=== PATIENT | male | born 1950 ===

== ENCOUNTER 2025-09-29 18:46 | Inpatient (IN) | payer MEDICARE, MEDICAID, SELFPAY ==
[2025-09-29] VITALS (9 sets, daily range): BP systolic 98–122; BP diastolic 40–62; PULSE 67–86; RESP 17–21; TEMP 37.7–39; O2SAT 92–99; BMI 22.9
--- NOTE | 2025-09-29 | ECG_ITS ---
Test Reason : SEPSIS? Blood Pressure : */* mmHG Vent. Rate : 72 BPM Atrial Rate : 72 BPM P-R Int : 134 ms QRS Dur : 76 ms QT Int : 398 ms P-R-T Axes : 35 -42 -19 degrees QTcB Int : 435 ms Normal sinus rhythm Left axis deviation Abnormal ECG No previous ECGs available Referred By: Generic ED Physician Electronically Signed By: Brent Heath
--- NOTE | ~2025-09-29 | CT_ITS ---
CLINICAL HISTORY: LLQ Tenderness; Fever CT abdomen and pelvis with contrast Comparison: None provided Findings: CT abdomen: Mild areas of dependent atelectasis within the lower lobes bilaterally. Trace amount of pleural fluid bilaterally. There is bilateral L5 spondylolysis with 12 mm of anterolisthesis of L5 on S1. There is severe degenerative disc disease and degenerative facet disease at the lumbosacral junction. Age-indeterminate height loss along the superior endplate of L1 and L2 without well-defined fracture cleft. Likely developing Schmorl's node formation at these levels. Irregularly shaped hypodensity within the posterior superior right lobe of the liver measures 3.8 x 2.1 cm in size. This abuts the right hepatic vein. More posteriorly and inferiorly within the right lobe of the liver is a 1.7 x 1.1 cm focus of ovoid low-attenuation. Main portal vein is patent. Small calcified gallstones with likely thickened bile or sludge within the dependent portion of the gallbladder. Small amount of pericholecystic fluid is identified. Small hypodensities within the spleen measure up to 15 mm in size. Splenic vein is patent. Fatty replacement of the pancreas without peripancreatic edema. Adrenal glands are unremarkable. Mild prominence of the right renal pelvis. There is a 2 cm exophytic cyst off the upper pole of the right kidney. No renal or ureteral calculi identified. Small hiatal hernia. No dilated small bowel. Dense vascular calcification of the abdominal aorta and iliac arteries. CT pelvis: 6 cm stool ball seen within the rectum with moderate stool otherwise seen throughout the colon. Mild rectal wall thickening with perirectal inflammatory stranding. Left sacral decubitus ulcer with sinus tract extending into the posterior cortex of the sacrum. There are areas of bony destructive change involving the posterior aspect of the mid to left aspect of the sacrum with abnormal areas of bony sclerosis and periosteal reaction. No discrete fluid collection seen to suggest abscess. However, there is prominent presacral edema. No findings of appendicitis. No free air. Partial bony ankylosis of the sacroiliac joints bilaterally. Surgical screws are seen within the right proximal femur fixating a right femoral neck fracture. Persistent fracture line is evident with mild impaction. Mixed areas of sclerosis and lucency are seen within the right femoral head suggesting avascular necrosis with findings concerning for impending cortical collapse. IMPRESSION: 1. Sacral decubitus ulcer to the left of midline with sinus tract extending into the posterior aspect of the sacrum of the associated sacral osteomyelitis. 2. Age-indeterminate L1 and L2 superior endplate height loss. 3. Cholelithiasis with likely thickened sludge or bile. Pericholecystic fluid raises the concern for cholecystitis. Clinical correlation advised. Gallbladder ultrasound could further evaluate. 4. Prominent stool ball within the rectum with findings most characteristic of proctitis. 5. 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 Correlation with the timing of the patient's surgery is suggested as there is no solid bony ankylosis of the femoral neck fracture. This document has been electronically signed by: Babatunde Chong MD on 09/30/2025 00:10:21
--- NOTE | ~2025-09-29 | CT_ITS ---
CLINICAL HISTORY: Altered Mental Status CT head without contrast Comparison: None provided Findings: Generalized cerebral and cerebellar atrophy is evident. There is ex vacuo dilatation of the ventricular system related to this degree of atrophy. Mild areas of low attenuation seen within the periventricular and deep white matter. No midline shift or mass effect. No intracranial hemorrhage. No calvarial fractures. IMPRESSION: 1. No acute intracranial findings. Specifically, no hemorrhage or acute territorial infarct. 2. Generalized atrophy with likely chronic microvascular ischemic change. This document has been electronically signed by: Babatunde Chong MD on 09/29/2025 22:17:37
--- NOTE | ~2025-09-29 | US_ITS ---
CLINICAL HISTORY: ? cholecystitis on CT US abdomen limited Comparison: None provided Findings: The visualized liver is normal in size and echotexture. The common duct is 3 mm in diameter. The gallbladder is contracted. There is cholelithiasis. There is no gallbladder wall thickening. No ascites. IMPRESSION: Contracted gallbladder with cholelithiasis. This document has been electronically signed by: Riaz Morales MD on 09/30/2025 09:52:13
--- NOTE | ~2025-09-29 | XR_ITS ---
CLINICAL HISTORY: altered mental status 1 view chest x-ray Comparison: None provided Findings: Patient is slightly rotated on this study. Patient's chin obscures visualization of the medial aspect of the left lung apex. Cardiac silhouette is within normal limits. No focal areas of consolidation. Mild emphysema. No pleural effusion or pneumothorax. IMPRESSION: No acute infiltrate. This document has been electronically signed by: Babatunde Chong MD on 09/29/2025 20:19:37
[2025-09-29 19:26] LABS: MANUAL DIFF FLAG NO
[2025-09-29 19:42] LABS: Magnesium 2.4 mg/dL (1.6-2.6)
[2025-09-29 19:47] LABS: Appearance Urine Clear; Glucose Urine UA >=1000 mg/dL (Negative); PH 5.5 (5.0-9.0); Specific Gravity - Urine >= 1.030 (1.005-1.025); UMIC TRIGGER UACC YES
[2025-09-29] MEDS: SODIUM CHLORIDE 1812 ML IV (20:29)
[2025-09-29 20:34] LABS: UACC Culture Trigger YES
[2025-09-29 20:47] LABS: Hematocrit 41.5 % (42.0-52.0); Hemoglobin 13.0 g/dl (14.0-18.0); Imm Gran Abs Auto 0.07 X10*3/uL (0.00-0.03); Imm Gran Pct Auto 0.8 % (0.0-0.4); Lymphocytes Absolute Auto 2.0 X10*3/uL (1.2-4.9); Mean Corpuscular HGB Conc 31.3 g/dl (31.0-36.0); Mean Corpuscular Hemoglobin 27.3 pg (27.0-33.0); Mean Corpuscular Volume 87.2 fL (80.0-98.0); NRBC Abs Auto 0.000 X10*3/uL (0.0-0.012); NRBC Pct Auto 0.0 /100WBC (0.0-0.2); Platelet Count 169 X10*3/uL (160-400); Red Blood Count 4.76 X10*6/uL (4.60-5.80); White Blood Count 8.5 X10*3/uL (4.8-10.8)
--- NOTE | 2025-09-29 20:59 | ED_ITS ---
HPI - Altered Mental Status General Chief Complaint: Altered Mental Status Stated Complaint: less responsive, alert to painful stimuli only Time Seen by Provider: 09/29/25 20:23 Source: EMS Mode of arrival: EMS Limitations: altered mental status History of Present Illness ED Provider: Rosendo CUEVAS HPI narrative: The patient is a 75-year-old male with a history of dementia, hyperlipidemia, hypertension, depression, diabetes with diabetic neuropathy, personality disorder, essential tremor, left BKA, right AKA, and failure to thrive, presenting to the ED via EMS from his nursing facility for decreased responsiveness. Patient is unable to provide a reliable HPI. On arrival to the ED patient was found to be febrile at 102.2, with SpO2 of 92% on room air. No associated hypotension or tachycardia. The patient arrives minimally responsive to verbal stimuli, able to state his name. Related Data Allergies Allergy/AdvReac Type Severity Reaction Status Date / Time No Known Allergies Allergy Verified 09/29/25 19:03 Review of Systems 2 Review of Systems: Yes all other systems are reviewed and are negative PMFSH Social History Social History Unable to assess alcohol history related to: Unable to respond Smoked in Last 30 Days: No Use of substances other than those prescribed or required for medical reasons: No Advance Directives: No Advance Directives Information Provided: Yes Do you have a plan to hurt others: Vague Physical Exam ED Vital Signs: Vital Signs - 24 hr 09/29/25 19:01 09/29/25 19:04 09/29/25 19:26 Temperature 102.2 F H 102.2 F H Pulse Rate 86 77 72 Respiratory Rate 19 17 Blood Pressure 121/59 L 122/59 L 115/56 L Pulse Oximetry 92 92 93 Oxygen Delivery Method Room Air Room Air Room Air 09/29/25 19:43 09/29/25 19:59 09/29/25 21:30 Temperature 99.9 F Pulse Rate 72 74 71 Respiratory Rate 19 17 17 Blood Pressure 121/58 L 113/62 105/44 L Pulse Oximetry 93 94 92 Oxygen Delivery Method Room Air Room Air Room Air 09/29/25 21:37 09/29/25 21:39 09/29/25 22:41 Temperature Pulse Rate 68 69 67 Respiratory Rate 20 20 21 H Blood Pressure 103/40 L 108/40 L 98/45 L Pulse Oximetry 99 99 96 Oxygen Delivery Method Room Air Room Air Room Air BMI result Body Mass Index 22.9 CONSTITUTIONAL: The patient appears markedly dehydrated, toxic, chronically ill. Vital signs as documented. HEAD: Atraumatic, normocephalic. EYES: EOMs grossly intact, pupils equal, conjunctiva clear, no exudate. ENT: Nares patent, no discharge. Airway patent, no audible stridor, visible mucosa is pink and moist without noted lesions. NECK: Trachea is midline, no obvious masses or gross abnormalities. CHEST: Symmetric movement, normal appearance. LUNGS: LS present and CTAB, no w/r/r. Non-labored work of breathing. CARDIAC: Regular Rhythm, S1/S2 appreciated, no murmurs, rubs or gallops. ABDOMEN: Abdomen soft x4 quadrants, positive tenderness of the left lower quadrant, negative rebound, no palpable masses or organomegaly. : Deferred. EXTREMITIES: Patient is status post left AKA, and right BKA. Otherwise normal tone. No obvious acute injury or deformity noted. NEURO: Alert to verbal stimuli. Patient unable or unwilling to cooperate with the remainder of neuro exam. PSYCH: normal affect, appropriate eye contact, fluid speech, with appropriate response to questioning. No reported suicidality or homicidality. SKIN: Warm, dry, color appropriate, normal turgor. There is a stage III decubitus ulcer of the sacrum with dressing in place, removal of dressing demonstrates maceration of wound edges without any active purulent drainage, there was no evidence of surrounding cellulitis. No other rashes noted. Medications Administered Generic Name Dose Route Start Last Admin Trade Name Freq PRN Reason Stop Dose Admin Sodium Chloride 1,000 mls @ 125 mls/hr 09/29/25 22:00 09/29/25 21:58 Ns IVCONT 125 mls/hr .Q8H JOHNATHAN Administration Discontinued Medications Generic Name Dose Route Start Last Admin Trade Name Freq PRN Reason Stop Dose Admin Acetaminophen 1,000 mg in 100 mls @ 400 mls/hr 09/29/25 19:51 09/29/25 20:31 Ofirmev IV 09/29/25 20:05 Infused ONCE ONE Infusion Sodium Chloride 1,812 mls @ 1,812 mls/hr 09/29/25 20:25 09/29/25 21:36 Ns 30 ml/kg infuse over 1 hr (1812 ml) 09/29/25 21:24 Infused IV Infusion .Q1H STA Ceftriaxone Sodium 1 gm/ 50 mls @ 100 mls/hr 09/29/25 20:25 09/29/25 21:36 Sodium Chloride IV 09/29/25 20:54 Infused ONCE ONE Infusion Vancomycin HCl 1,500 mg/ 500 mls @ 333.333 mls/hr 09/29/25 21:53 09/29/25 23:39 Sodium Chloride IV 09/29/25 23:22 333.33 mls/hr ONCE ONE Administration Iohexol 100 ml 09/29/25 23:00 09/29/25 23:00 Iohexol 350 Mg/Ml 100 Ml Infus..Btl IV 09/29/25 23:01 85 ml ONCE ONE Administration Medical Decision Making Medical Decision Making MDM Narrative: 9:37 PM 09/29/2025 (Damian CUEVAS): The patient is a 75-year-old male with a history of dementia, hyperlipidemia, hypertension, depression, diabetes with diabetic neuropathy, personality disorder, essential tremor, left BKA, right AKA, and failure to thrive, presenting to the ED via EMS from his nursing facility for decreased responsiveness. Patient is unable to provide a reliable HPI. On arrival to the ED patient was found to be febrile at 102.2, with SpO2 of 92% on room air. No associated hypotension or tachycardia. The patient arrives minimally responsive to verbal stimuli, able to state his name. On exam patient reports tenderness of the left lower quadrant of the abdomen, no other reported pain. The patient's exam demonstrates severe dryness of the oral mucosa. Patient was suspected to have a infectious source, RN obtained blood cultures, lactic acid, basic laboratory evaluation, chest x-ray, and urinalysis. Additionally a CT head and viral swabs were ordered. Patient was treated with IV fluid hydration, Tylenol, and Rocephin. The patient's laboratory evaluation has begun resulting in shows no leukocytosis or left shift, no significant anemia. The patient's creatinine is normal, however BUN is markedly elevated at 37, indicating prerenal azotemia. The patient's sodium reveals hypernatremia at 150. Lactic acid normal at 1.1. Urinalysis shows increased specific gravity with glucose, protein, blood, and 6-10 RBCs and WBCs without nitrites or bacteria. Patient's viral swabs are pending. The patient is EKG is nonischemic, normal sinus rhythm. The patient's one view chest x-ray shows no focal consolidation. Patient's CT head is pending interpretation. At this time the patient appears to be suffering from metabolic encephalopathy secondary to hypovolemic hyponatremia possibly compounded by a viral illness. Patient will continue to receive IV fluid hydration and we will await viral swabs and CT head. If CT head and viral swabs are unremarkable, patient will be sent for CT abdomen and pelvis to evaluate left lower quadrant tenderness noted on exam. Patient will require admission for hypernatremia. 9:49 PM 09/29/2025 (Damian CUEVAS): Patient's viral swabs are negative, patient will be sent for CT abdomen and pelvis with IV contrast. Of note patient's chart review from [facility] sent with the EMS reveals patient has a history of sacral ulcer, the patient was reexamined with the assistance from RN, patient does have a stage III sacral ulcer with dressing in place, dressing was removed and shows no active purulent drainage, there is some maceration of the edges of the wound, but no evidence of surrounding cellulitis. We will add on vancomycin to cover for MRSA as a precaution. 12:18 AM 09/30/2025 (Damian CUEVAS): The patient's CT abdomen has resulted and shows multiple findings, most prominent finding is a sacral decubitus ulcer as noted on exam, to the left of the midline with a sinus tract extending into the posterior aspect of the sacrum with the associated sacral osteomyelitis. The patient also has an L1 and L2 age-indeterminate endplate height loss. The patient's CT also shows evidence of cholelithiasis with thickened sludge or bile with some pericholecystic fluid raising the concern for possible cholecystitis, clinical correlation advised. The patient has no leukocytosis, left shift, or abnormal LFTs, patient has no reported vomiting and no right upper quadrant tenderness on exam, acute cholecystitis is less likely than osteomyelitis to be the source of the patient's infection. CT also shows prominent stool ball within the rectum with findings concerning for proctitis. 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 Unfortunately the patient has not been here previously, and there was no available documentation of when the patient had a right femoral surgical repair. At this time patient has received 1 g of Rocephin and vancomycin, we will add on a 2nd g of Rocephin for osteomyelitis coverage. Patient will be admitted for sacral osteomyelitis and hypovolemic hypernatremia. Admission/Observation Consideration of admission/observation: Escalation of care including admission/observation considered Lab Data MDM Lab Attestation statement: I reviewed the patient's lab results. 09/29/25 19:19 09/29/25 19:19 Labs: Lab Results 09/29/25 09/29/25 09/29/25 Range/Units 19:19 19:39 21:00 WBC 8.5 (4.8-10.8) X10*3/uL RBC 4.76 (4.60-5.80) X10*6/uL Hgb 13.0 L (14.0-18.0) g/dl Hct 41.5 L (42.0-52.0) % MCV 87.2 (80.0-98.0) fL MCH 27.3 (27.0-33.0) pg MCHC 31.3 (31.0-36.0) g/dl RDW 15.7 (11.0-16.0) % Plt Count 169 (160-400) X10*3/uL MPV 12.8 H (9.4-12.4) fL Immature Gran % (Auto) 0.8 H (0.0-0.4) % Neut % (Auto) 62.9 (45-73) % Lymph % (Auto) 23.3 (20-40) % [place] % (Auto) 12.7 H (2-11) % Eos % (Auto) 0.1 (0-4) % Baso % (Auto) 0.2 (0-2) % Lymph # (Auto) 2.0 (1.2-4.9) X10*3/uL [place] # (Auto) 1.1 (0.1-1.2) X10*3/uL Eos # (Auto) 0.0 (0.0-0.4) X10*3/uL Baso # (Auto) 0.0 (0.0-0.2) X10*3/uL Abs Immat Gran (auto) 0.07 H (0.00-0.03) X10*3/uL Absolute Neuts (auto) 5.3 (2.0-8.3) x10*3/uL Absolute Nucleated RBC 0.000 (0.0-0.012) X10*3/uL Nucleated RBC % (auto) 0.0 (0.0-0.2) /100WBC Sodium 150 H (135-145) mmol/L Potassium 3.7 (3.3-5.1) mmol/L Chloride 117 H (96-108) mmol/L Carbon Dioxide 25 (22-29) mmol/L Anion Gap 12 (12-20) BUN 37 H (9-16) mg/dL Creatinine 0.62 (0.5-1.4) mg/dL Estim Creat Clear Calc 84.8 Estimated GFR > 60 Random Glucose 321 H (60-115) mg/dL Lactic Acid 1.1 (0.5-2.0) mmol/L Calcium 7.9 L (8.4-10.2) mg/dL Magnesium 2.4 (1.6-2.6) mg/dL Total Bilirubin 0.7 (0.0-1.0) mg/dL AST 12 (5-37) U/L ALT 6 (0-40) U/L Alkaline Phosphatase 39 (39-117) U/L Total Protein 5.7 L (6.5-8.0) g/dL Albumin 3.4 L (3.5-5.0) g/dL Urine Color Yellow Urine Appearance Clear Urine pH 5.5 (5.0-9.0) Ur Specific [place] >= 1.030 H (1.005-1.025) Urine Protein 100 (2+) H (Neg-Trace) mg/dL Urine Glucose (UA) >=1000 H (Negative) mg/dL Urine Ketones Trace (Negative) mg/dL Urine Blood Moderate (2+) H (Negative) Urine Nitrite Negative (Negative) Ur Leukocyte Esterase Negative (Negative) Urine RBC 6-10 H (0-2) /HPF Urine WBC 6-10 H (0-5) /HPF Ur Squamous Epith Cells 0-2 (0-2) /HPF Urine Bacteria None Seen (None Seen) Hyaline Casts 0-2 (0-2) /LPF Influenza Type A (PCR) NEGATIVE (Negative) Influenza Type B (PCR) NEGATIVE (Negative) RSV RNA Qual (PCR) NEGATIVE (Negative) SARS-CoV-2 RNA (RT-PCR) NEGATIVE (Negative) Independent Interpretation I performed an independent interpretation of an: EKG (EKG shows sinus rhythm with a rate of 72, with left axis deviation, no evidence of acute ischemia, no ST elevation, no ectopy. QTC 435. There are no old for comparison.) Radiology Impression Discussion of test interpretation with radiology: I have reviewed the radiologist's reading. Radiologist Impression: 1 view chest x-ray Comparison: None provided Findings: Patient is slightly rotated on this study. Patient's chin obscures visualization of the medial aspect of the left lung apex. Cardiac silhouette is within normal limits. No focal areas of consolidation. Mild emphysema. No pleural effusion or pneumothorax. IMPRESSION: No acute infiltrate. This document has been electronically signed by: Babatunde Chong MD on 09/29/2025 20:19:37 CT abdomen: Mild areas of dependent atelectasis within the lower lobes bilaterally. Trace amount of pleural fluid bilaterally. There is bilateral L5 spondylolysis with 12 mm of anterolisthesis of L5 on S1. There is severe degenerative disc disease and degenerative facet disease at the lumbosacral junction. Age-indeterminate height loss along the superior endplate of L1 and L2 without well-defined fracture cleft. Likely developing Schmorl's node formation at these levels. Irregularly shaped hypodensity within the posterior superior right lobe of the liver measures 3.8 x 2.1 cm in size. This abuts the right hepatic vein. More posteriorly and inferiorly within the right lobe of the liver is a 1.7 x 1.1 cm focus of ovoid low-attenuation. Main portal vein is patent. Small calcified gallstones with likely thickened bile or sludge within the dependent portion of the gallbladder. Small amount of pericholecystic fluid is identified. Small hypodensities within the spleen measure up to 15 mm in size. Splenic vein is patent. Fatty replacement of the pancreas without peripancreatic edema. Adrenal glands are unremarkable. Mild prominence of the right renal pelvis. There is a 2 cm exophytic cyst off the upper pole of the right kidney. No renal or ureteral calculi identified. Small hiatal hernia. No dilated small bowel. Dense vascular calcification of the abdominal aorta and iliac arteries. CT pelvis: 6 cm stool ball seen within the rectum with moderate stool otherwise seen throughout the colon. Mild rectal wall thickening with perirectal inflammatory stranding. Left sacral decubitus ulcer with sinus tract extending into the posterior cortex of the sacrum. There are areas of bony destructive change involving the posterior aspect of the mid to left aspect of the sacrum with abnormal areas of bony sclerosis and periosteal reaction. No discrete fluid collection seen to suggest abscess. However, there is prominent presacral edema. No findings of appendicitis. No free air. Partial bony ankylosis of the sacroiliac joints bilaterally. Surgical screws are seen within the right proximal femur fixating a right femoral neck fracture. Persistent fracture line is evident with mild impaction. Mixed areas of sclerosis and lucency are seen within the right femoral head suggesting avascular necrosis with findings concerning for impending cortical collapse. IMPRESSION: 1. Sacral decubitus ulcer to the left of midline with sinus tract extending into the posterior aspect of the sacrum of the associated sacral osteomyelitis. 2. Age-indeterminate L1 and L2 superior endplate height loss. 3. Cholelithiasis with likely thickened sludge or bile. Pericholecystic fluid raises the concern for cholecystitis. Clinical correlation advised. Gallbladder ultrasound could further evaluate. 4. Prominent stool ball within the rectum with findings most characteristic of proctitis. 5. 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 Correlation with the timing of the patient's surgery is suggested as there is no solid bony ankylosis of the femoral neck fracture. This document has been electronically signed by: Babatunde Chong MD on 09/30/2025 00:10:21 Discharge Plan Discharge Clinical Impression: Acute osteomyelitis of sacrum, Acute hypernatremia Patient Disposition: Admitted As Inpatient Print Language: Unable To Collect
[2025-09-29 21:13] LABS: Alanine Aminotransferase 6 U/L (0-40); Albumin Level 3.4 g/dL (3.5-5.0); Alkaline Phosphatase 39 U/L (39-117); Anion Gap 12 (12-20); Aspartate Amino Transferase 12 U/L (5-37); Blood Urea Nitrogen 37 mg/dL (9-16); Calcium 7.9 mg/dL (8.4-10.2); Carbon Dioxide 25 mmol/L (22-29); Chloride 117 mmol/L (96-108); Creatinine Clr Calc Pharmacy 84.8; Estimated Glomerular Filt Rate > 60; Potassium 3.7 mmol/L (3.3-5.1); Sodium 150 mmol/L (135-145); Total Protein 5.7 g/dL (6.5-8.0)
--- OUTSIDE RECORDS SUMMARY | 2025-09-29 21:42 | XMS_ITS | Encounter Summary ---
Author Organization [employer] [facility] Address [address] [place] [address] Care Team Providers Care Clinical Lab Assistant Name Role Phone Junior Real Primary Care Pro vider Encounter Details Date Type Department Care Team (Latest Contact Info) Description 03/21/2025 Lab Requisition [facility] - Main Lab [address] [facility] [place] [address] Blake Prescott MD [address] [place] [address] Type 2 diabetes mellitus without complications (CMS/[facility] V24, CMS/[facility] V28) Social History Tobacco Use Types Packs/Day Years Used Date Smoking Tobacco: Never Assessed Sex and Gender Information Value Date Recorded Sex Assigned at Not on file Legal Sex Male 11:20 AM EST Gender Identity Not on file Sexual Orientation Not on file documented as of this encounter Plan of Treatment Not on file documented as of this encounter Visit Diagnoses Diagnosis Type 2 diabetes mellitus without complications (CMS/HCC V24, CMS/[facility] V28) documented in this encounter Care Teams Clinical Lab Assistant Relationship Specialty Start Date End Date Junior Real PA [address] [address] PCP - General 01/10/25 documented as of this encounter
--- OUTSIDE RECORDS SUMMARY | 2025-09-29 21:42 | XMS_ITS | Encounter Summary ---
Author Organization [employer] [facility] Address [address] [place] [address] Care Team Providers Care Tissue Packer Name Role Phone Junior Real Primary Care Pro vider Encounter Details Date Type Department Care Team (Latest Contact Info) Description 01/19/2025 Lab Requisition [facility] - Main Lab [address] [facility] [place] [address] Blake Prescott MD [address] [place] [address] Anemia, unspecified; Type 2 diabetes mellitus without complications (CMS/HCC V24, CMS/HCC V28) Social History Tobacco Use Types Packs/Day Years Used Date Smoking Tobacco: Never Assessed Sex and Gender Information Value Date Recorded Sex Assigned at Not on file Legal Sex Male 11:20 AM EST Gender Identity Not on file Sexual Orientation Not on file documented as of this encounter Plan of Treatment Not on file documented as of this encounter Procedures Procedure Name Priority Date/Time Associated Diagnosis Comments COMPLETE BLOOD COUNT Routine 01/19/2025 7:50 AM EST Anemia, unspecified Type 2 diabetes mellitus without complications ([facility]/HCC) HEMOGLOBIN A1C Routine 01/19/2025 7:50 AM EST Anemia, unspecified Type 2 diabetes mellitus without complications (CMS/HCC) BASIC METABOLIC PANEL Routine 01/19/2025 7:50 AM EST Anemia, unspecified Type 2 diabetes mellitus without complications ([facility]) documented in this encounter Results * (ABNORMAL) Hemoglobin A1c (01/19/2025 7:50 AM EST) Hemoglobin A1C 8.2(H) <6.5 % LAB CHEMISTRY METHOD 01/22/2025 2:01 PM EST [facility] Mean Bld Glu Estim. 189 mg/dL LAB CHEMISTRY METHOD 01/22/2025 2:01 PM [facility] Blood Venous blood specimen / Unknown Venipuncture / Unknown 01/19/2025 7:50 AM EST 01/19/2025 10:17 AM EST us Blake Prescott MD LAB BLOOD ORDERABLES Final R esult [facility] [address] [place] [address], * (ABNORMAL) Basic metabolic panel (01/19/2025 7:50 AM EST) Sodium 150(H) 133 - 145 mmol/L LAB CHEMISTRY METHOD 01/19/2025 11:46 AM [facility] Potassium 3.5 3.5 - 5.5 mmol/L LAB CHEMISTRY METHOD 01/19/2025 11:46 AM [facility] Chloride 116(H) 96 - 110 mmol/L LAB CHEMISTRY METHOD 01/19/2025 11:46 AM [facility] CO2 27 21 - 32 mmol/L LAB CHEMISTRY METHOD 01/19/2025 11:46 AM [facility] Anion Gap 7 3 - 11 LAB CHEMISTRY METHOD 01/19/2025 11:46 AM [facility] Glucose 266(H) 70 - 100 mg/dL LAB CHEMISTRY METHOD 01/19/2025 11:46 AM [facility] BUN 34(H) 5 - 25 mg/dL LAB CHEMISTRY METHOD 01/19/2025 11:46 AM [facility] Creatinine 0.44(L) 0.70 - 1.30 mg/dL LAB CHEMISTRY METHOD 01/19/2025 11:46 AM [facility] eGFR 111 >=60 mL/min/1. 73m2 LAB CHEMISTRY METHOD 01/19/2025 11:46 AM EST [facility] Comment:Calculation based on the Chronic Kidney Disease Epidemiology Collaboration (CKD-EPI) equation refit without adjustment for race. BUN/Creatinine Ratio 77.3 LAB CHEMISTRY METHOD 01/19/2025 11:46 AM [facility] Calcium 8.2(L) 8.5 - 10.5 mg/dL LAB CHEMISTRY METHOD 01/19/2025 11:46 AM [facility] Blood Venous blood specimen / Unknown Venipuncture / Unknown 01/19/2025 7:50 AM EST 01/19/2025 10:17 AM EST Blake Prescott MD LAB BLOOD ORDERABLES Final R esult [facility] [address] [place] [address], * (ABNORMAL) Complete blood count (01/19/2025 7:50 AM EST) WBC 5.4 4.8 - 10.8 K/mcL LAB HEMETOLOGY METHOD 01/19/2025 11:26 AM [facility] RBC 4.30(L) 4.50 - 5.50 M/mcL LAB HEMETOLOGY METHOD 01/19/2025 11:26 AM [facility] Hemoglobin 12.0(L) 13.5 - 17.5 g/dL LAB HEMETOLOGY METHOD 01/19/2025 11:26 AM [facility] Hematocrit 37.5(L) 42.0 - 54.0 % LAB HEMETOLOGY METHOD 01/19/2025 11:26 AM [facility] MCV 87.0 79.0 - 98.0 FL LAB HEMETOLOGY METHOD 01/19/2025 11:26 AM [facility] MCH 27.8 27.0 - 32.0 pcg LAB HEMETOLOGY METHOD 01/19/2025 11:26 AM EST [facility] MCHC 32.0 32.0 - 37.0 g/dL LAB HEMETOLOGY METHOD 01/19/2025 11:26 AM [facility] RDW 15.4(H) 11.0 - 15.0 % LAB HEMETOLOGY METHOD 01/19/2025 11:26 AM [facility] Platelets 133 130 - 400 K/mcL LAB HEMETOLOGY METHOD 01/19/2025 11:26 AM [facility] MPV 12.4(H) 7.0 - 11.0 FL LAB HEMETOLOGY METHOD 01/19/2025 11:26 AM [facility] NRBC 0.0 <1.0 % LAB HEMETOLOGY METHOD 01/19/2025 11:26 AM [facility] NRBC Absolute 0.00 <0.10 K/mcL LAB HEMETOLOGY METHOD 01/19/2025 11:26 AM [facility] Blood Venous blood specimen / Unknown Venipuncture / Unknown 01/19/2025 7:50 AM EST 01/19/2025 10:17 AM EST us Blake Prescott MD LAB BLOOD ORDERABLES Final R esult [facility] [address] [place] [address], documented in this encounter Visit Diagnoses Diagnosis Anemia, unspecified Type 2 diabetes mellitus without complications (CMS/HCC V24, CMS/HCC V28) documented in this encounter Care Teams Tissue Packer Relationship Specialty Start Date End Date Junior Real PA [address] [address] PCP - General 01/10/25 documented as of this encounter
--- OUTSIDE RECORDS SUMMARY | 2025-09-29 21:42 | XMS_ITS | Encounter Summary ---
Author Organization [facility] Address [address] [place] [address] Care Team Providers Care Gun Welder Name Role Phone Jorgetamanna Junior CUEVAS Primary Care Pro vider Encounter Details Date Type Department Care Team (Latest Contact Info) Description 01/23/2025 Lab Requisition [facility] - Main Lab [address] [place] [address] Blake Prescott MD [address] [place], [place] [id number] Anemia, unspecified; Type 2 diabetes mellitus without [...] Associated Diagnosis Comments COMPLETE BLOOD COUNT Routine 01/23/2025 5:45 AM EST Anemia, unspecified Type 2 diabetes mellitus without complications (CMS/HCC) BASIC METABOLIC PANEL Routine 01/23/2025 5:45 AM EST Anemia, unspecified Type 2 diabetes mellitus without complications (CMS/HCC) documented in this encounter Results * (ABNORMAL) Basic metabolic panel (01/23/2025 5:45 AM EST) Sodium 144 133 - 145 mmol/L LAB CHEMISTRY METHOD 01/23/2025 10:42 AM EST [facility] Potassium 3.4(L) 3.5 - 5.5 mmol/L LAB CHEMISTRY METHOD 01/23/2025 10:42 AM [facility] Chloride 109 96 - 110 mmol/L LAB CHEMISTRY METHOD 01/23/2025 10:42 AM [facility] CO2 25 21 - 32 mmol/L LAB CHEMISTRY METHOD 01/23/2025 10:42 AM [facility] Anion Gap 10 3 - 11 LAB CHEMISTRY METHOD 01/23/2025 10:42 AM [facility] Glucose 202(H) 70 - 100 mg/dL LAB CHEMISTRY METHOD 01/23/2025 10:42 AM [facility] BUN 21 5 - 25 mg/dL LAB CHEMISTRY METHOD 01/23/2025 10:42 AM [facility] Creatinine 0.33(L) 0.70 - 1.30 mg/dL LAB CHEMISTRY METHOD 01/23/2025 10:42 AM [facility] eGFR 121 >=60 mL/min/1. 73m2 LAB CHEMISTRY METHOD 01/23/2025 10:42 AM [facility] Comment:Calculation based on the Chronic Kidney Disease Epidemiology Collaboration (CKD-EPI) equation refit without adjustment for race. BUN/Creatinine Ratio 63.6 LAB CHEMISTRY METHOD 01/23/2025 10:42 AM [facility] Calcium 7.8(L) 8.5 - 10.5 mg/dL LAB CHEMISTRY METHOD 01/23/2025 10:42 AM [facility] Blood Venous blood specimen / Unknown Venipuncture / Unknown 01/23/2025 5:45 AM EST 01/23/2025 9:28 AM EST us Blake Prescott MD LAB BLOOD ORDERABLES Final R esult [facility] [address] [place] [address], * (ABNORMAL) Complete blood count (01/23/2025 5:45 AM EST) WBC 5.0 4.8 - 10.8 K/mcL LAB HEMETOLOGY METHOD 01/23/2025 10:21 AM [facility] RBC 3.80(L) 4.50 - 5.50 M/mcL LAB HEMETOLOGY METHOD 01/23/2025 10:21 AM [facility] Hemoglobin 10.5(L) 13.5 - 17.5 g/dL LAB HEMETOLOGY METHOD 01/23/2025 10:21 AM [facility] Hematocrit 32.5(L) 42.0 - 54.0 % LAB HEMETOLOGY METHOD 01/23/2025 10:21 AM [facility] MCV 86.7 79.0 - 98.0 FL LAB HEMETOLOGY METHOD 01/23/2025 10:21 AM [facility] MCH 28.0 27.0 - 32.0 pcg LAB HEMETOLOGY METHOD 01/23/2025 10:21 AM [facility] MCHC 32.3 32.0 - 37.0 g/dL LAB HEMETOLOGY METHOD 01/23/2025 10:21 AM [facility] RDW 15.1(H) 11.0 - 15.0 % LAB HEMETOLOGY METHOD 01/23/2025 10:21 AM [facility] Platelets 119(L) 130 - 400 K/mcL LAB HEMETOLOGY METHOD 01/23/2025 10:21 AM [facility] MPV 12.7(H) 7.0 - 11.0 FL LAB HEMETOLOGY METHOD 01/23/2025 10:21 AM [facility] NRBC 0.0 <1.0 % LAB HEMETOLOGY METHOD 01/23/2025 10:21 AM [facility] NRBC Absolute 0.00 <0.10 K/mcL LAB HEMETOLOGY METHOD 01/23/2025 10:21 AM EST [facility] Blood Venous blood specimen / Unknown Venipuncture / Unknown 01/23/2025 5:45 AM EST 01/23/2025 9:28 AM EST us Blake Prescott MD LAB BLOOD ORDERABLES Final R esult [facility] [address] [place] [address], documented in this encounter Visit Diagnoses Diagnosis Anemia, unspecified Type 2 diabetes mellitus without complications (CMS/HCC V24, CMS/HCC V28) documented in this encounter Care Teams Gun Welder Relationship Specialty Start Date End Date Junior Real PA [address] [address] PCP - General 01/10/25 documented as of this encounter
--- OUTSIDE RECORDS SUMMARY | 2025-09-29 21:42 | XMS_ITS | Encounter Summary ---
Author Organization [facility] Address [address] [place] [address] Care Team Providers Care Glass Science Engineer Name Role Phone Junior Real Primary Care Pro vider Encounter Details Date Type Department Care Team (Latest Contact Info) Description 06/04/[address] [facility] - Main Lab [address] [facility] [place] [address] Blake Prescott MD [address] [place] [address] Hypomagnesemia; Vitamin D deficiency, unspecified; Type 2 diabetes mellitus without complications (CMS/[facility] V24, CMS/[facility] V28) Social History Tobacco Use Types Packs/Day [...] Procedure Name Priority Date/Time Associated Diagnosis Comments VITAMIN D 25 HYDROXY Routine 06/05/2025 9:42 AM EDT Hypomagnesemia Vitamin D deficiency, unspecified Type 2 diabetes mellitus without complications (CMS/HCC V24, CMS/[facility] V28) MAGNESIUM Routine 06/05/2025 9:42 AM EDT Hypomagnesemia Vitamin D deficiency, unspecified Type 2 diabetes mellitus without complications (CMS/HCC V24, CMS/HCC V28) HEMOGLOBIN A1C Routine 06/05/2025 9:42 AM EDT Hypomagnesemia Vitamin D deficiency, unspecified Type 2 diabetes mellitus without complications (CMS/HCC V24, CMS/HCC V28) documented in this encounter Results * Vitamin D 25 hydroxy (06/05/2025 9:42 AM EDT) Vit D, 25-Hydroxy 45.6 30.0 - 80.0 ng/mL LAB CHEMISTRY METHOD 06/05/2025 1:40 PM EDT [facility] Blood Venous blood specimen / Unknown Venipuncture / Unknown 06/05/2025 9:42 AM EDT 06/05/2025 10:48 AM EDT Blake Prescott MD LAB BLOOD ORDERABLES Final R esult [facility] [address] [place] [address], [place] [phone] * Hemoglobin A1c (06/05/2025 9:42 AM EDT) Hemoglobin A1C 6.0 <6.5 % LAB CHEMISTRY METHOD 06/05/2025 3:23 PM EDT [facility] Mean Bld Glu Estim. 126 mg/dL LAB CHEMISTRY METHOD 06/05/2025 3:23 PM EDT [facility] Blood Venous blood specimen / Unknown Venipuncture / Unknown 06/05/2025 9:42 AM EDT 06/05/2025 10:48 AM EDT Blake Prescott MD LAB BLOOD ORDERABLES Final R esult [facility] [address] [place] [address], [place] [phone] * Magnesium (06/05/2025 9:42 AM EDT) Magnesium 2.0 1.9 - 2.6 mg/dL LAB CHEMISTRY METHOD 06/05/2025 12:54 PM EDT [facility] Blood Venous blood specimen / Unknown Venipuncture / Unknown 06/05/2025 9:42 AM EDT 06/05/2025 10:48 AM EDT us Blake Prescott MD LAB BLOOD ORDERABLES Final R esult [facility] [address] [place] [address], documented in this encounter Visit Diagnoses Diagnosis Hypomagnesemia Disorders of magnesium metabolism Vitamin D deficiency, unspecified Type 2 diabetes mellitus without complications (CMS/HCC V24, CMS/HCC V28) documented in this encounter Care Teams Glass Science Engineer Relationship Specialty Start Date End Date Junior Real PA [address] [address] PCP - General 01/10/25 documented as of this encounter
--- OUTSIDE RECORDS SUMMARY | 2025-09-29 21:42 | XMS_ITS | Encounter Summary ---
Author Organization [facility] Address [address] [place] [address] Care Team Providers Care Content Coordinator Name Role Phone Jorgetamanna Junior CUEVAS Primary Care Pro vider Encounter Details Date Type Department Care Team (Latest Contact Info) Description 03/27/2025 Lab Requisition [facility] - Main Lab [address] [facility] [place] [address] Blake Prescott MD [address] [place] [address] Type 2 diabetes mellitus without complications (CMS/[facility] V24, [facility] V28) Social History Tobacco Use Types [...] Procedure Name Priority Date/Time Associated Diagnosis Comments LAVENDER - EDTA Routine 03/27/2025 6:14 AM EDT Type 2 diabetes mellitus without complications ([facility] V24, [facility] V28) HEMOGLOBIN A1C Routine 03/27/2025 6:14 AM EDT Type 2 diabetes mellitus without complications ([facility] V24, CMS/[facility] V28) documented in this encounter Results * Hemoglobin A1c (03/27/2025 6:14 AM EDT) Hemoglobin A1C 6.0 <6.5 % LAB CHEMISTRY METHOD 03/29/2025 10:25 PM EDT [facility] Mean Bld Glu Estim. 126 mg/dL LAB CHEMISTRY METHOD 03/29/2025 10:25 PM EDT [facility] Blood Venous blood specimen / Unknown Venipuncture / Unknown 03/27/2025 6:14 AM EDT 03/27/2025 9:48 AM EDT Blake Prescott MD LAB BLOOD ORDERABLES Final R esult [facility] [address] [place] [address], [place] [phone] * Lavender tube (03/27/2025 6:14 AM EDT) Extra Tube Hold for add-ons. 03/27/2025 11:01 AM EDT [facility] Comment:Auto resulted. Blood Venous blood specimen / Unknown Venipuncture / Unknown 03/27/2025 6:14 AM EDT 03/27/2025 9:48 AM EDT Blake Prescott MD LAB BLOOD ORDERABLES Final R esult [facility] [address] [place] [address], [place] [phone] documented in this encounter Visit Diagnoses Diagnosis Type 2 diabetes mellitus without complications (CMS/HCC V24, CMS/HCC V28) documented in this encounter Care Teams Content Coordinator Relationship Specialty Start Date End Date Junior Real PA [address] [address] PCP - General 01/10/25 documented as of this encounter
--- OUTSIDE RECORDS SUMMARY | 2025-09-29 21:42 | XMS_ITS | Encounter Summary ---
Author Organization [employer] Address [address] [place] [address] Care Team Providers Care Stunt Woman Name Role Phone Junior Real Primary Care Pro vider Encounter Details Date Type Department Care Team (Latest Contact Info) Description 05/31/2025 Lab Requisition [facility] - Main Lab [address] [facility] [place] [address] Blake Prescott MD [address] [place] [address] Anemia, unspecified; Type 2 diabetes mellitus without complications (CMS/HCC V24, CMS/HCC V28); Weakness; Hyperlipidemia, unspecified Social History Tobacco Use Types Packs/Day Years [...] Procedure Name Priority Date/Time Associated Diagnosis Comments THYROID STIMULATING HORMONE WITH REFLEX TO FREE T4 AND FREE T3 Routine 06/01/2025 7:43 AM EDT Anemia, unspecified Type 2 diabetes mellitus without complications (CMS/HCC V24, CMS/HCC V28) Weakness Hyperlipidemia, unspecified LIPID PANEL WITH REFLEX TO DIRECT LDL Routine 06/01/2025 7:43 AM EDT Anemia, unspecified Type 2 diabetes mellitus without complications (CMS/HCC V24, CMS/HCC V28) Weakness Hyperlipidemia, unspecified COMPLETE BLOOD COUNT Routine 06/01/2025 7:43 AM EDT Anemia, unspecified Type 2 diabetes mellitus without complications (CMS/HCC V24, CMS/HCC V28) Weakness Hyperlipidemia, unspecified MAGNESIUM Routine 06/01/2025 7:43 AM EDT Anemia, unspecified Type 2 diabetes mellitus without complications ([facility]/HCC V24, [facility] V28) Weakness Hyperlipidemia, unspecified COMPREHENSIVE METABOLIC PANEL Routine 06/01/2025 7:43 AM EDT Anemia, unspecified Type 2 diabetes mellitus without complications ([facility]/HCC V24, [facility] V28) Weakness Hyperlipidemia, unspecified documented in this encounter Results * Thyroid stimulating hormone with reflex to free t4 and free t3 (06/01/2025 7:43 AM EDT) Pathologist [facility] TSH 1.73 0.40 - 4.00 mcIU/mL LAB CHEMISTRY METHOD 06/01/2025 10:[address] [facility] Blood Venous blood specimen / Unknown Venipuncture / Unknown 06/01/2025 7:43 AM EDT 06/01/2025 9:22 AM EDT us Blake Prescott MD LAB BLOOD ORDERABLES Final R esult [facility] [address] [place] [address], * (ABNORMAL) Complete blood count (06/01/2025 7:43 AM EDT) Pathologist [facility] WBC 5.2 4.8 - 10.8 K/mcL LAB HEMETOLOGY METHOD 06/01/2025 9:[address] [facility] RBC 4.30(L) 4.50 - 5.50 M/mcL LAB HEMETOLOGY METHOD 06/01/2025 9:[address] [facility] Hemoglobin 11.3(L) 13.5 - 17.5 g/dL LAB HEMETOLOGY METHOD 06/01/2025 9:[address] [facility] Hematocrit 35.9(L) 42.0 - 54.0 % LAB HEMETOLOGY METHOD 06/01/2025 9:[address] [facility] MCV 83.1 79.0 - 98.0 FL LAB HEMETOLOGY METHOD 06/01/2025 9:[address] [facility] MCH 26.2(L) 27.0 - 32.0 pcg LAB HEMETOLOGY METHOD 06/01/2025 9:[address] [facility] MCHC 31.5(L) 32.0 - 37.0 g/dL LAB HEMETOLOGY METHOD 06/01/2025 9:[address] [facility] RDW 15.6(H) 11.0 - 15.0 % LAB HEMETOLOGY METHOD 06/01/2025 9:[address] [facility] Platelets 144 130 - 400 K/mcL LAB HEMETOLOGY METHOD 06/01/2025 9:[address] [facility] MPV 11.4(H) 7.0 - 11.0 FL LAB HEMETOLOGY METHOD 06/01/2025 9:[address] [facility] NRBC 0.0 <1.0 % LAB HEMETOLOGY METHOD 06/01/2025 9:[address] [facility] NRBC Absolute 0.00 <0.10 K/mcL LAB HEMETOLOGY METHOD 06/01/2025 9:[address] [facility] Blood Venous blood specimen / Unknown Venipuncture / Unknown 06/01/2025 7:43 AM EDT 06/01/2025 9:24 AM EDT us Blake Prescott MD LAB BLOOD ORDERABLES Final R esult [facility] [address] [place] [address], * (ABNORMAL) Magnesium (06/01/2025 7:43 AM EDT) Magnesium 1.8(L) 1.9 - 2.6 mg/dL LAB CHEMISTRY METHOD 06/01/2025 10:00 AM [facility] Blood Venous blood specimen / Unknown Venipuncture / Unknown 06/01/2025 7:43 AM EDT 06/01/2025 9:22 AM EDT us Blake Prescott MD LAB BLOOD ORDERABLES Final R esult [facility] [address] [place] [address], * (ABNORMAL) Lipid panel with reflex to direct LDL (06/01/2025 7:43 AM EDT) Cholesterol 78 0 - 200 mg/dL LAB CHEMISTRY METHOD 06/01/2025 10:01 AM [facility] Triglycerides 75 0 - 150 mg/dL LAB CHEMISTRY METHOD 06/01/2025 10:01 AM [facility] HDL 24(L) >=40 mg/dL LAB CHEMISTRY METHOD 06/01/2025 10:01 AM [facility] LDL Calculated 39 0 - 100 mg/dL LAB CHEMISTRY METHOD 06/01/2025 10:01 AM [facility] VLDL Cholesterol Ramon 15 mg/dL LAB CHEMISTRY METHOD 06/01/2025 10:01 AM [facility] Non HDL Chol. (LDL+VLDL) 54 <145 mg/dL LAB CHEMISTRY METHOD 06/01/2025 10:01 AM [facility] Chol/HDL Ratio 3.3 0.0 - 4.4 LAB CHEMISTRY METHOD 06/01/2025 10:01 AM [facility] Blood Venous blood specimen / Unknown Venipuncture / Unknown 06/01/2025 7:43 AM EDT 06/01/2025 9:22 AM EDT us Blake Prescott MD LAB BLOOD ORDERABLES Final R esult [facility] [address] [place] [address], [place] [phone] * (ABNORMAL) Comprehensive metabolic panel (06/01/2025 7:43 AM EDT) Sodium 144 133 - 145 mmol/L LAB CHEMISTRY METHOD 06/01/2025 10:01 AM [facility] Potassium 3.8 3.5 - 5.5 mmol/L LAB CHEMISTRY METHOD 06/01/2025 10:01 AM [facility] Chloride 112(H) 96 - 110 mmol/L LAB CHEMISTRY METHOD 06/01/2025 10:01 AM [facility] CO2 27 21 - 32 mmol/L LAB CHEMISTRY METHOD 06/01/2025 10:01 AM [facility] Anion Gap 5 3 - 11 LAB CHEMISTRY METHOD 06/01/2025 10:01 AM [facility] Glucose 184(H) 70 - 100 mg/dL LAB CHEMISTRY METHOD 06/01/2025 10:01 AM [facility] BUN 31(H) 5 - 25 mg/dL LAB CHEMISTRY METHOD 06/01/2025 10:01 AM [facility] Creatinine 0.42(L) 0.70 - 1.30 mg/dL LAB CHEMISTRY METHOD 06/01/2025 10:01 AM [facility] eGFR 112 >=60 mL/min/1. 73m2 LAB CHEMISTRY METHOD 06/01/2025 10:01 AM [facility] Comment:Calculation based on the Chronic Kidney Disease Epidemiology Collaboration (CKD-EPI) equation refit without adjustment for race. BUN/Creatinine Ratio 73.8 LAB CHEMISTRY METHOD 06/01/2025 10:01 AM [facility] Calcium 8.2(L) 8.5 - 10.5 mg/dL LAB CHEMISTRY METHOD 06/01/2025 10:01 AM [facility] AST (SGOT) 9(L) 10 - 42 unit/L LAB CHEMISTRY METHOD 06/01/2025 10:01 AM [facility] ALT (SGPT) 14 10 - 60 unit/L LAB CHEMISTRY METHOD 06/01/2025 10:01 AM [facility] Alkaline Phosphatase 77 42 - 121 unit/L LAB CHEMISTRY METHOD 06/01/2025 10:01 AM [facility] Total Protein 5.5(L) 6.0 - 8.0 g/dL LAB CHEMISTRY METHOD 06/01/2025 10:01 AM [facility] Albumin 2.9(L) 3.2 - 5.0 g/dL LAB CHEMISTRY METHOD 06/01/2025 10:01 AM [facility] Total Bilirubin 0.3 0.0 - 1.4 mg/dL LAB CHEMISTRY METHOD 06/01/2025 10:01 AM [facility] Blood Venous blood specimen / Unknown Venipuncture / Unknown 06/01/2025 7:43 AM EDT 06/01/2025 9:22 AM EDT Blake Prescott MD LAB BLOOD ORDERABLES Final R esult [facility] [address] [place] [address], documented in this encounter Visit Diagnoses Diagnosis Anemia, unspecified Type 2 diabetes mellitus without complications (CMS/HCC V24, CMS/HCC V28) Weakness Other malaise and fatigue Hyperlipidemia, unspecified documented in this encounter Care Teams Stunt Woman Relationship Specialty Start Date End Date Junior Real PA [address] [place] [phone] PCP - General 01/10/25 documented as of this encounter
--- OUTSIDE RECORDS SUMMARY | 2025-09-29 21:43 | XMS_ITS | Encounter Summary ---
Author Organization [facility] Address [address] [place] [address] Care Team Providers Care Diesel Service Apprentice Name Role Phone Jorgetamanna Junior CUEVAS Primary Care Pro vider Encounter Details Date Type Department Care Team (Latest Contact Info) Description 01/17/2025 Lab Requisition [facility] - Main Lab [address] [place] [address] Blake Prescott MD [address] [place] [address] Type 2 diabetes mellitus without complications (CMS/HCC V24, CMS/HCC V28); Anemia, unspecified Social History Tobacco Use Types Packs/Day [...] Associated Diagnosis Comments COMPLETE BLOOD COUNT Routine 01/17/2025 7:25 AM EST Type 2 diabetes mellitus without complications (CMS/HCC) Anemia, unspecified BASIC METABOLIC PANEL Routine 01/17/2025 7:25 AM EST Type 2 diabetes mellitus without complications (CMS/HCC) Anemia, unspecified documented in this encounter Results * (ABNORMAL) Basic metabolic panel (01/17/2025 7:25 AM EST) Sodium 150(H) 133 - 145 mmol/L LAB CHEMISTRY METHOD 01/17/2025 2:01 PM EST [facility] Potassium 3.5 3.5 - 5.5 mmol/L LAB CHEMISTRY METHOD 01/17/2025 2:01 PM [facility] Chloride 113(H) 96 - 110 mmol/L LAB CHEMISTRY METHOD 01/17/2025 2:01 PM [facility] CO2 25 21 - 32 mmol/L LAB CHEMISTRY METHOD 01/17/2025 2:01 PM [facility] Anion Gap 12(H) 3 - 11 LAB CHEMISTRY METHOD 01/17/2025 2:01 PM [facility] Glucose 224(H) 70 - 100 mg/dL LAB CHEMISTRY METHOD 01/17/2025 2:01 PM [facility] BUN 35(H) 5 - 25 mg/dL LAB CHEMISTRY METHOD 01/17/2025 2:01 PM [facility] Comment:Results verified by repeat testing Creatinine 0.57(L) 0.70 - 1.30 mg/dL LAB CHEMISTRY METHOD 01/17/2025 2:01 PM [facility] eGFR 102 >=60 mL/min/1. 73m2 LAB CHEMISTRY METHOD 01/17/2025 2:01 PM [facility] Comment:Calculation based on the Chronic Kidney Disease Epidemiology Collaboration (CKD-EPI) equation refit without adjustment for race. BUN/Creatinine Ratio 61.4 LAB CHEMISTRY METHOD 01/17/2025 2:01 PM [facility] Calcium 8.2(L) 8.5 - 10.5 mg/dL LAB CHEMISTRY METHOD 01/17/2025 2:01 PM [facility] Blood Venous blood specimen / Unknown Venipuncture / Unknown 01/17/2025 7:25 AM EST 01/17/2025 10:48 AM EST us Blake Prescott MD LAB BLOOD ORDERABLES Final R esult [facility] [address] [place] [address], * (ABNORMAL) Complete blood count (01/17/2025 7:25 AM EST) [facility] WBC 3.5(L) 4.8 - 10.8 K/mcL LAB HEMETOLOGY METHOD 01/17/2025 12:19 PM [facility] RBC 4.40(L) 4.50 - 5.50 M/mcL LAB HEMETOLOGY METHOD 01/17/2025 12:19 PM [facility] Hemoglobin 12.4(L) 13.5 - 17.5 g/dL LAB HEMETOLOGY METHOD 01/17/2025 12:19 PM [facility] Hematocrit 40.4(L) 42.0 - 54.0 % LAB HEMETOLOGY METHOD 01/17/2025 12:19 PM [facility] MCV 92.0 79.0 - 98.0 FL LAB HEMETOLOGY METHOD 01/17/2025 12:19 PM [facility] MCH 28.2 27.0 - 32.0 pcg LAB HEMETOLOGY METHOD 01/17/2025 12:19 PM [facility] MCHC 30.7(L) 32.0 - 37.0 g/dL LAB HEMETOLOGY METHOD 01/17/2025 12:19 PM [facility] RDW 15.7(H) 11.0 - 15.0 % LAB HEMETOLOGY METHOD 01/17/2025 12:19 PM [facility] Platelets 144 130 - 400 K/mcL LAB HEMETOLOGY METHOD 01/17/2025 12:19 PM [facility] MPV 12.9(H) 7.0 - 11.0 FL LAB HEMETOLOGY METHOD 01/17/2025 12:19 PM [facility] NRBC 0.0 <1.0 % LAB HEMETOLOGY METHOD 01/17/2025 12:19 PM [facility] NRBC Absolute 0.00 <0.10 K/[facility] LAB HEMETOLOGY METHOD 01/17/2025 12:19 PM EST [facility] Blood Venous blood specimen / Unknown Venipuncture / Unknown 01/17/2025 7:25 AM EST 01/17/2025 10:48 AM EST us Blake Prescott MD LAB BLOOD ORDERABLES Final R esult [facility] [address] [place] [address], documented in this encounter Visit Diagnoses Diagnosis Type 2 diabetes mellitus without complications (CMS/HCC V24, CMS/HCC V28) Anemia, unspecified documented in this encounter Care Teams Diesel Service Apprentice Relationship Specialty Start Date End Date Junior Real PA [address] [address] PCP - General 01/10/25 documented as of this encounter
--- OUTSIDE RECORDS SUMMARY | 2025-09-29 21:43 | XMS_ITS | Encounter Summary ---
Author Organization [facility] Address [address] [place] [address] Care Team Providers Care Repairer Recreational Vehicle Name Role Phone Junior Real Primary Care Pro vider Encounter Details Date Type Department Care Team (Latest Contact Info) Description 02/23/[address] [facility] - Main Lab [address] [facility] [place] [address] Blake Prescott MD [address] [place] [address] Anemia, unspecified; Essential (primary) hypertension; Type 2 diabetes mellitus without complications (CMS/HCC [...] Date/Time Associated Diagnosis Comments THYROID STIMULATING HORMONE Routine 02/23/2025 1:23 PM EDT Anemia, unspecified Essential (primary) hypertension Type 2 diabetes mellitus without complications MAGNESIUM Routine 02/23/2025 1:23 PM EDT Anemia, unspecified Essential (primary) hypertension Type 2 diabetes mellitus without complications BASIC METABOLIC PANEL Routine 02/23/2025 1:23 PM EDT Anemia, unspecified Essential (primary) hypertension Type 2 diabetes mellitus without complications documented in this encounter Results * (ABNORMAL) Basic metabolic panel (02/23/2025 1:23 PM EDT) Sodium 140 133 - 145 mmol/L LAB CHEMISTRY METHOD 02/23/2025 3:17 PM [facility] Potassium 3.8 3.5 - 5.5 mmol/L LAB CHEMISTRY METHOD 02/23/2025 3:17 PM [facility] Chloride 108 96 - 110 mmol/L LAB CHEMISTRY METHOD 02/23/2025 3:17 PM [facility] CO2 26 21 - 32 mmol/L LAB CHEMISTRY METHOD 02/23/2025 3:17 PM [facility] Anion Gap 6 3 - 11 LAB CHEMISTRY METHOD 02/23/2025 3:17 PM [facility] Glucose 150(H) 70 - 100 mg/dL LAB CHEMISTRY METHOD 02/23/2025 3:17 PM [facility] BUN 23 5 - 25 mg/dL LAB CHEMISTRY METHOD 02/23/2025 3:17 PM [facility] Creatinine 0.51(L) 0.70 - 1.30 mg/dL LAB CHEMISTRY METHOD 02/23/2025 3:17 PM [facility] eGFR 106 >=60 mL/min/1. 73m2 LAB CHEMISTRY METHOD 02/23/2025 3:17 PM [facility] Comment:Calculation based on the Chronic Kidney Disease Epidemiology Collaboration (CKD-EPI) equation refit without adjustment for race. BUN/Creatinine Ratio 45.1 LAB CHEMISTRY METHOD 02/23/2025 3:17 PM [facility] Calcium 8.5 8.5 - 10.5 mg/dL LAB CHEMISTRY METHOD 02/23/2025 3:17 PM [facility] Blood Venous blood specimen / Unknown 02/23/2025 1:23 PM EDT 02/23/2025 2:01 PM EDT us Blake Prescott MD LAB BLOOD ORDERABLES Final R esult [facility] [address] [place] [address], [place] [phone] * Thyroid stimulating hormone (02/23/2025 1:23 PM EDT) TSH 1.33 0.40 - 4.00 mcIU/mL LAB CHEMISTRY METHOD 02/23/2025 4:16 PM EDT [facility] Blood Venous blood specimen / Unknown 02/23/2025 1:23 PM EDT 02/23/2025 2:01 PM EDT Blake Prescott MD LAB BLOOD ORDERABLES Final R esult [facility] [address] [place] [address], [place] [phone] * Magnesium (02/23/2025 1:23 PM EDT) Pathologist [facility] Magnesium 1.9 1.9 - 2.6 mg/dL LAB CHEMISTRY METHOD 02/23/2025 2:53 PM EDT [facility] Blood Venous blood specimen / Unknown 02/23/2025 1:23 PM EDT 02/23/2025 2:01 PM EDT Blake Prescott MD LAB BLOOD ORDERABLES Final R esult [facility] [address] [place] [address], [place] [phone] documented in this encounter Visit Diagnoses Diagnosis Anemia, unspecified Essential (primary) hypertension Unspecified essential hypertension Type 2 diabetes mellitus without complications (CMS/HCC V24, CMS/HCC V28) documented in this encounter Care Teams Repairer Recreational Vehicle Relationship Specialty Start Date End Date Junior Real PA [address] [place] [phone] PCP - General 01/10/25 documented as of this encounter
--- OUTSIDE RECORDS SUMMARY | 2025-09-29 21:43 | XMS_ITS | Encounter Summary ---
Author Organization [facility] Address [address] [place] [address] Care Team Providers Care Clipper And Turner Name Role Phone Jorgetamanna Junior CUEVAS Primary Care Pro vider Encounter Details Date Type Department Care Team (Latest Contact Info) Description 02/10/2025 Lab Requisition [facility] - Main Lab [address] [place] [address] Blake Prescott MD [address] [place] [address] Type 2 diabetes mellitus without complications (CMS/HCC V24, CMS/HCC V28); Essential (primary) hypertension Social History Tobacco Use Types Packs/Day Years [...] Associated Diagnosis Comments COMPLETE BLOOD COUNT Routine 02/12/2025 5:21 AM EDT Type 2 diabetes mellitus without complications Essential (primary) hypertension BASIC METABOLIC PANEL Routine 02/12/2025 5:21 AM EDT Type 2 diabetes mellitus without complications Essential (primary) hypertension documented in this encounter Results * (ABNORMAL) Basic metabolic panel (02/12/2025 5:21 AM EDT) Sodium 139 133 - 145 mmol/L LAB CHEMISTRY METHOD 02/12/2025 1:05 PM EDT [facility] Potassium 4.1 3.5 - 5.5 mmol/L LAB CHEMISTRY METHOD 02/12/2025 1:05 PM [facility] Comment:Hemolysis present Chloride 107 96 - 110 mmol/L LAB CHEMISTRY METHOD 02/12/2025 1:05 PM [facility] CO2 25 21 - 32 mmol/L LAB CHEMISTRY METHOD 02/12/2025 1:05 PM [facility] Anion Gap 7 3 - 11 LAB CHEMISTRY METHOD 02/12/2025 1:05 PM [facility] Glucose 137(H) 70 - 100 mg/dL LAB CHEMISTRY METHOD 02/12/2025 1:05 PM [facility] BUN 15 5 - 25 mg/dL LAB CHEMISTRY METHOD 02/12/2025 1:05 PM [facility] Creatinine 0.35(L) 0.70 - 1.30 mg/dL LAB CHEMISTRY METHOD 02/12/2025 1:05 PM [facility] eGFR 118 >=60 mL/min/1. 73m2 LAB CHEMISTRY METHOD 02/12/2025 1:05 PM [facility] Comment:Calculation based on the Chronic Kidney Disease Epidemiology Collaboration (CKD-EPI) equation refit without adjustment for race. BUN/Creatinine Ratio 42.9 LAB CHEMISTRY METHOD 02/12/2025 1:05 PM [facility] Calcium 8.5 8.5 - 10.5 mg/dL LAB CHEMISTRY METHOD 02/12/2025 1:05 PM [facility] Blood Venous blood specimen / Unknown Venipuncture / Unknown 02/12/2025 5:21 AM EDT 02/12/2025 10:58 AM EDT us Blake Prescott MD LAB BLOOD ORDERABLES Final R esult [facility] [address] [place] [address], * (ABNORMAL) Complete blood count (02/12/2025 5:21 AM EDT) [facility] WBC 4.8 4.8 - 10.8 K/mcL LAB HEMETOLOGY METHOD 02/12/2025 11:32 AM [facility] RBC 3.90(L) 4.50 - 5.50 M/mcL LAB HEMETOLOGY METHOD 02/12/2025 11:32 AM [facility] Hemoglobin 11.1(L) 13.5 - 17.5 g/dL LAB HEMETOLOGY METHOD 02/12/2025 11:32 AM [facility] Hematocrit 33.6(L) 42.0 - 54.0 % LAB HEMETOLOGY METHOD 02/12/2025 11:32 AM [facility] MCV 86.4 79.0 - 98.0 FL LAB HEMETOLOGY METHOD 02/12/2025 11:32 AM [facility] MCH 28.5 27.0 - 32.0 pcg LAB HEMETOLOGY METHOD 02/12/2025 11:32 AM [facility] MCHC 33.0 32.0 - 37.0 g/dL LAB HEMETOLOGY METHOD 02/12/2025 11:32 AM [facility] RDW 15.5(H) 11.0 - 15.0 % LAB HEMETOLOGY METHOD 02/12/2025 11:32 AM [facility] Platelets 134 130 - 400 K/mcL LAB HEMETOLOGY METHOD 02/12/2025 11:32 AM [facility] MPV 11.7(H) 7.0 - 11.0 FL LAB HEMETOLOGY METHOD 02/12/2025 11:32 AM [facility] NRBC 0.0 <1.0 % LAB HEMETOLOGY METHOD 02/12/2025 11:32 AM [facility] NRBC Absolute 0.00 <0.10 K/mcL LAB HEMETOLOGY METHOD 02/12/2025 11:32 AM EDT [facility] Blood Venous blood specimen / Unknown Venipuncture / Unknown 02/12/2025 5:21 AM EDT 02/12/2025 10:58 AM EDT us Blake Prescott MD LAB BLOOD ORDERABLES Final R esult [facility] [address] [place] [address], documented in this encounter Visit Diagnoses Diagnosis Type 2 diabetes mellitus without complications (CMS/HCC V24, CMS/HCC V28) Essential (primary) hypertension Unspecified essential hypertension documented in this encounter Care Teams Clipper And Turner Relationship Specialty Start Date End Date Junior Real PA [address] [phone] PCP - General 01/10/25 documented as of this encounter
--- OUTSIDE RECORDS SUMMARY | 2025-09-29 21:43 | XMS_ITS | Encounter Summary ---
Author [facility] Address [address] [place] [address] Care Team Providers Care Freelance Makeup Artist Name Role Phone JorgeShin nolenrobyn CUEVAS Primary Care Pro vider Encounter Details Date Type Department Care Team (Late st Contact Info) Description 01/10/2025 Lab Requisition [facility] - Main Lab [address] [facility] [place] [address] Blake Prescott MD [address] [place] [address] Fever, unspecified Social History Tobacco Use Types Packs/Day [...] Procedure Name Priority Date/Time Associated Diagnosis Comments CULTURE BLOOD Routine 01/10/2025 1:46 PM EST Fever, unspecified CULTURE BLOOD Routine 01/10/2025 1:40 PM EST Fever, unspecified documented in this encounter Results * Culture blood (01/10/2025 1:46 PM EST) Culture, Blood No growth at 5 days 01/15/2025 4:01 PM EST ARIAS MORALES [place] ([facility]) [facility] Blood 01/10/2025 1:46 PM EST 01/10/2025 3:14 PM EST Blake Prescott MD LAB MICROBIOLOGY - GENERAL O RDERABLES Final Result ARIAS MORALES [place] ([facility] [address] [place] [address], [place] [phone] * Culture blood (01/10/2025 1:40 PM EST) Culture, Blood No growth at 5 days 01/15/2025 4:01 PM EST [facility] Blood 01/10/2025 1:40 PM EST 01/10/2025 3:14 PM EST us Blake Prescott MD LAB MICROBIOLOGY - GENERAL O RDERABLES Final Result [facility] [address] [place] [address], [place] [phone] documented in this encounter Visit Diagnoses Diagnosis Fever, unspecified documented in this encounter Care Teams Freelance Makeup Artist Relationship Specialty Start Date End Date Junior Real PA [address] [place] [phone] PCP - General 01/10/25 documented as of this encounter
--- OUTSIDE RECORDS SUMMARY | 2025-09-29 21:43 | XMS_ITS ---
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 Name Role Phone Alber Cast Unavailable Unavailable Milagros Dixon Unavailable Unavailable Adela Husain Unavailable Unavailable Sarina Combs Unavailable Unavailable Sydney Torres Unavailable Unavailable Rj Saucedo Unavailable Unavailable Allergies and adverse reactions No Known Allergies Care Team Name Role Address Phone Organization Dates Rj Saucedo PCP [address] [facility] [address], [place], [address], [place] (Office): : [facility] 09/12/2024 - present Alber Cast [address] [facility] [address], [place], [address], [place] (Office[place] : [facility] 09/12/2024 - present Milagros Dixon [address] [facility], [place], [address], [place] (Office[place] : [facility] 09/12/2024 - present Adela Husain Supportive [facility], [place], [address], [place] (Fax): [facility] 09/12/2024 - present Sarina Combs [address] [address], [place], [address], [place] (Office[place] : [facility] 09/12/2024 - present Sydney Torres [address] [facility] [place], [address], [place]Office[place] : [facility] 09/12/2024 - present Encounters Encounter Type Code Code System Description Performer Discharge Disposition Service Delivery Location Date Ambulatory Encounter CPT Code = [id number] [facility]otemporal [facility] Address: [address] [place] [address], [address] [place] [address]. 09/11 Ambulatory Encounter CPT Code = [id number] Oropharyngeal dysphagia [facility] Address: [address] [place] [address], [address] [place] [address]. 09/11 Ambulatory Encounter CPT Code = [id number] Exposure to SARS-CoV-2 [facility] Address: [address] [place] [address], [address] [place] [address]. 09/11 Ambulatory Encounter CPT Code = [id number] Finding of risk level [facility] Address: [address] [place] [address], [address] [place] [address], [facility]. 09/11 Ambulatory Encounter CPT Code = [id number] Depressive disorder [facility] Address: [address] [place] [address], [address] [place] [address]. 09/11 Ambulatory Encounter CPT Code = [id number] Disorder of teeth AND/OR supporting structures [facility] Address: [address] [place] [address], [address] [place] [address]. 09/11 Ambulatory Encounter CPT Code = [id number] Bradycardia [facility] Address: [address] [place] [address], [address] [place] [address], [facility]. 09/11 Ambulatory Encounter CPT Code = [id number] Exposure to viral disease [facility] Address: [address] [place] [address], [address] [place] [address], [facility]. 09/11 Ambulatory Encounter CPT Code = [id number] Major depression, single episode [facility] Address: [address] [place] [address], [address] [place] [address], [facility]. 09/11 Ambulatory Encounter CPT Code = [id number] Anemia [facility] Address: [address] [place] [address], [address] [place] [address], [facility]. 09/11 Ambulatory Encounter CPT Code = [id number] Blood chemistry [facility] Address: [address] [place] [address], [address] [place] [address], [facility]. 09/11 Ambulatory Encounter CPT Code = [id number] Retention of urine [facility] Address: [address] [place] [address], [address] [place] [address], [facility]. 09/11 Ambulatory Encounter CPT Code = [id number] [facility] Address: [address] [place] [address], [address] [place] [address], [facility]. 09/11 Ambulatory Encounter CPT Code = [id number] Asteatosis cutis [facility] Address: [address] [place] [address], [address] [place] [address], [facility]. 09/11 Ambulatory Encounter CPT Code = [id number] Oral phase dysphagia [facility] Address: [address] [place] [address], [address] [place] [address], [facility]. 09/11 Ambulatory Encounter CPT Code = [id number] Abnormal gait [facility] Address: [address] [place] [address], [address] [place] [address]. 09/11 Ambulatory Encounter CPT Code = [id number] Abnormal posture [facility] Address: [address] [place] [address], [address] [place] [address]. 09/11 Ambulatory Encounter CPT Code = [id number] Disorder of nervous system due to type 2 diabetes mellitus [facility] Address: [address] [place] [address], [address] [place] [address], [facility]. 09/11 Ambulatory Encounter CPT Code = [id number] Undernutrition [facility] Address: [address] [place] [address], [address] [place] [address]. 09/11 Ambulatory Encounter CPT Code = [id number] Paraphilia [facility] Address: [address] [place] [address], [address] [place] [address]. 09/11 Ambulatory Encounter CPT Code = [id number] Adult failure to thrive syndrome [facility] Address: [address] [place] [address], [address] [place] [address]. 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 09/11 Ambulatory Encounter CPT Code = [id number] Mild dementia [facility] Address: [address] [place] [address], [address] [place] [address], [facility]. 09/11 Ambulatory Encounter CPT Code = [id number] Phantom limb syndrome with pain [facility] Address: [address] [place] [address], [address] [place] [address]. 09/11 Ambulatory Encounter CPT Code = [id number] Contracture of joint of hand [facility] Address: [address] [place] [address], [address] [place] [address], [facility]. 09/11 Ambulatory Encounter CPT Code = [id number] Contracture of joint of hand [facility] Address: [address] [place] [address], [address] [place] [address], [facility]. 09/11 Ambulatory Encounter CPT Code = [id number] Cerebrovascular disease [facility] Address: [address] [place] [address], [address] [place] [address], [facility]. 09/11 Ambulatory Encounter CPT Code = [id number] Pressure injury of sacral region of back [facility] Address: [address] [place] [address], [address] [place] [address], [facility]. 09/11 Ambulatory Encounter CPT Code = [id number] Type 2 diabetes mellitus with ulcer [facility] Address: [address] [place] [address], [address] [place] [address], [facility]. 09/11 Ambulatory Encounter CPT Code = [id number] Acquired absence of organ [facility] Address: [address] [place] [address], [address] [place] [address]. 09/11 Ambulatory Encounter CPT Code = [id number] Acquired absence of organ [facility] Address: [address] [place] [address], [address] [place] [address], [facility]. 09/11 Ambulatory Encounter CPT Code = [id number] Essential hypertension [facility] Address: [address] [place] [address], [address] [place] [address], [facility]. 09/11 Ambulatory Encounter CPT Code = [id number] Type 2 diabetes mellitus without complication [facility] Address: [address] [place] [address], [address] [place] [address]. 09/11 Ambulatory Encounter CPT Code = [id number] Recurrent major depressive episodes, severe, with psychosis [facility] Address: [address] [place] [address], [address] [place] [address]. 09/11 Ambulatory Encounter CPT Code = [id number] Pedophilia [facility] Address: [address] [place] [address], [address] [place] [address]. 09/11 Ambulatory Encounter CPT Code = 25163 F65.50 ICD 10 SADOMASOCHISM, UNSPECIFIED [facility] Address: [address] [place] [address], [address] [place] [address], [facility]. 09/11 Ambulatory Encounter CPT Code = [id number] Contracture of wrist joint [facility] Address: [address] [place] [address], [address] [place] [address], [facility]. 09/11 Ambulatory Encounter CPT Code = [id number] Long-term current use of insulin [facility] Address: [address] [place] [address], [address] [place] [address], [facility]. 09/11 Ambulatory Encounter CPT Code = [id number] Constipation [facility] Address: [address] [place] [address], [address] [place] [address], [facility]. 09/11 Ambulatory Encounter CPT Code = [id number] Osteoarthritis [facility] Address: [address] [place] [address], [id number], [facility]. 09/11 Ambulatory Encounter CPT Code = [id number] Essential tremor [facility] Address: [address] [place] [address], [address] [place] [address], [facility]. 09/11 Ambulatory Encounter CPT Code = [id number] Non-organic psychosis [facility] Address: [address] [place] [address], [address] [place] [address], [facility]. 09/11 Ambulatory Encounter CPT Code = [id number] Personality disorder [facility] Address: [address] [place] [address], [address] [place] [address]. 09/11 Ambulatory Encounter CPT Code = [id number] Mixed urinary incontinence [facility] Address: [address] [place] [address], [address] [place] [address]. 09/11 Ambulatory Encounter CPT Code = [id number] Muscle weakness [facility] Address: [address] [place] [address], [address] [place] [address], [facility]. 09/11 Ambulatory Encounter CPT Code = [id number] COVID-19 [facility] Address: [address] [place] [address], [address] [place] [address], [facility]. 09/11 Ambulatory Encounter CPT Code = [id number] Fall [facility] Address: [address] [place] [address], [address] [place] [address], [facility]. 09/11 Ambulatory Encounter CPT Code = [id number] Hyperlipidemia [facility] Address: [address] [place] [address], [address] [place] [address]. 09/11 Ambulatory Encounter CPT Code = [id number] Dental caries on pit and fissure surface penetrating into pulp [facility] Address: [address] [place] [address], [address] [place] [address], [facility]. 09/11 Ambulatory Encounter CPT Code = [id number] Disorder of teeth AND/OR supporting structures [facility] Address: [address] [place] [address], [address] [place] [address]. 09/11 Ambulatory Encounter CPT Code = [address] Dental caries [facility] Address: [address] [place] [address], [address] [place] [address]. 09/11 Ambulatory Encounter CPT Code = [id number] Irreversible pulpitis [facility] Address: [address] [place] [address], [address] [place] [address]. 09/11 Ambulatory Encounter CPT Code = [id number] Hip pain [facility] Address: [address] [place] [address], [address] [place] [address]. 09/11 Ambulatory Encounter CPT Code = [id number] Pseudopolyposis of colon [facility] Address: [address] [place] [address], [address] [place] [address]. 09/11 Ambulatory Encounter CPT Code = [id number] Cataract [facility] Address: [address] [place] [address], [address] [place] [address]. 09/11 Goals Section Goals Description Status Target Date Enhanced Barrier Precautions will be followed per protocol through my next review. Active 12/05/2025 I Will Be Free of Physically Aggressive Behaviors through my next review. Active 12/05/2025 I Will Not Harm Self or Others through my next r eview. Active 12/05/2025 I Will have a reduction in N on-Aggressive Behaviors through next review. Active 12/05/2025 I Will have a reduction of V erbally Aggressive Behaviors towards other through next review. Active 12/05/2025 I Will have less than 3 epis odes of Visual Hallucinations through my next review. Active 12/05/2025 I will accept care with no m ore than 3 attempts through the next review Active 12/05/2025 I will appear to be content with recreation activities through the next review. Active 12/05/2025 I will be able to eat the fo ods I enjoy on my current diet and not have any signs or symptoms of aspiration through next review Active 12/05/2025 I will be clean, well groome d, and will be dressed to maintain my dignity through next review. All my ADLs will be met on a daily bases, with resident doing as much as possible for self within limits of my medical condition. Active 12/05/2025 I will be free of infection, pain or bleeding in the oral cavity by review date. Active 12/05/2025 I will be free of symptoms o f dehydration and maintain moist mucous membranes, good skin turgor. Active 12/05/2025 I will be maintained on the lowest, most effective dose of psychotropic medication through my next review. Active 2025 I will be redirected with mi nimal verbal cues if exhibiting socially inappropriate behavior towards others and will vent feeling in a non-confrontational manner through the next review. Active 12/05/2025 I will express my frustratio ns verbally with facility staff and my social media marketing manager for clarification of things I don't know or remember through the next review. Active 12/05/2025 I will have less than 3 episodes weekly of audib le hallucinations. Active 12/05/2025 I will have no adverse side effects of psychotropic medication use through my next review Active 12/05/2025 I will have no complications related to diabetes through the review date. Active 12/05/2025 I will have no indications o f psychosocial well being problem by/through review date. Active 12/05/2025 I will have no self-inflicte d injuries reported through my next review. Active 12/05/2025 I will maintain adequate nut ritional status as evidenced by maintaining weight within 5% of 127#, no s/sx of malnutrition, and consuming at least 75% of at least 3 meals daily through review date. Active 12/05/2025 I will not be misidentified. Active I will not have any signific ant cardiac events related to my diagnosis through my next review. Active 12/05/2025 I will not have further skin breakdown through n ext review date. Active 12/05/2025 I will not sustain serious injury through the re view date. Active 12/05/2025 I will remain satisfied with my choice of [facility] residency Active 12/05/2025 I will report effective blaire gement of my pain through the next review Active 12/05/2025 I will show no decline in visual function throug h the review date. Active 12/05/2025 I will verbalize concerns/ i ssues to staff of choice through the next review Active 12/05/2025 I will verbalize understandi ng of need to control verbally abusive behavior through the review date. Active 12/05/2025 If the services recommended through the PASRR process are acceptable to me and/or my responsible libertarian and my present treatment team, arrangements for these services will have been made or initiated and re-evaluated, as necessary, by my next review. Active 12/05/2025 My comfort will be maintained through my next re view. Active 12/05/2025 My concerns will be listened to and explored thr ough next review. Active 12/05/2025 My needs will be met through staff assistance. A ctive 12/05/2025 My skin will have no further skin breakdown through my next review. Active 12/05/2025 My wound will heal as eviden saniya by decrease in size, absence of erythema and drainage, and presence of granulation through next review. Active 12/05/2025 My wound will remain free fr om signs and symptoms of infection through next review. Active 12/05/2025 Resident Intake of Nutrients Will Meet Metabolic Needs Active 12/05/2025 Resident will remain hydrate d with adequate fluid intake daily through my next review AEB good skin turgor, moist mucous membranes, no dry lips through next review. Active 12/05/2025 Resident/Patient or healthca re decision maker shall participate in decisions regarding medical care and treatment through the next review. Active 12/05/2025 Resident/Patient wishes as e xpressed in Advance Directive will be followed. Active 12/05/2025 Resident/patient will reques t education and/or other information regarding Advance Directives when desired. Active 12/05/2025 Functional Status Code Name Recorded Time Value Entered By Chair/qtm-ld-gwueg transfer 09/29/2025 Dependent shanteh Does the resident use a wheelchair and/or scooter? 09/29/2025 Yes (qualifier value) shanteh Eating 09/29/2025 Dependent shanteh Indicate the type of wheelchair or scooter used 09/29/2025 Manual wheelchair (physical object) shanteh Indicate the type of wheelchair or scooter used 09/20/2025 Independent rdziuba Lower body dressing 09/29/2025 Dependent shanteh Lying to sitting on side of bed 09/29/2025 Dependent shanteh Oral hygiene 09/29/2025 Dependent shanteh Personal hygiene 09/29/2025 Dependent shanteh Picking up object 09/29/2025 Dependent shanteh Putting on/taking off footwear 09/29/2025 Dependent shanteh Roll left and right 09/29/2025 Dependent shanteh Shower/bathe self 09/29/2025 Dependent shanteh Sit to lying 09/29/2025 Dependent shanteh Sit to stand 09/29/2025 Dependent shanteh Toilet transfer 09/29/2025 Not assessed shanteh Toileting hygiene 09/29/2025 Dependent shanteh Upper body dressing 09/29/2025 Dependent shanteh Walk 10 feet 09/29/2025 Not assessed shanteh Walk 150 feet 09/29/2025 Not assessed shanteh Walking 10 feet on uneven surfaces 09/20/2025 Not assessed rdziuba Wheel 150 feet 09/20/2025 Independent rdziuba Wheel 50 feet with two turns 09/29/2025 Dependent shanteh Immunizations Immunization Status Vaccine Details Vaccine Code CodeSystem Date Notes COVID-19 Moderna Booster completed SARS-COV-2 (COVID-19) vaccine, mRNA, spike protein, LNP, preservative free, 100 mcg/0.5mL dose or 50 mcg/0.25mL dose 207 CVX created date: 09/20/2024 administer ed date: 08/23/2024 Shingles (recombinant) completed zoster vaccine recombinant 187 CVX created date: 09/20/2024 administer ed date: 05/29/2024 Shingrix FLU completed created date: 09/20/2024 administer ed date: 08/02/2024 TDAP completed created date: 09/20/2024 administer ed date: 02/28/2021 PneumoPCV completed created date: 09/20/2024 administer ed date: 01/01/2024 Prevnar 20 RSV completed Respiratory syncytial virus (RSV), mRNA, injectable, preservative free lotNumber: [id number] expiry: 08/22/2025 Mfg: Abrysvo Given 0.5 ml Left Deltoid intramuscularly 326 CVX created date: 09/28/2024 consent date: 09/25/2024 administer ed date: 09/27/2024 Educated by on 09/28/2024 COVID-19 completed created date: 09/20/2024 administer ed date: 01/09/2021 Moderna COVID-19 completed created date: 09/20/2024 administer ed date: 12/09/2020 Moderna HepB completed created date: 09/20/2024 administer ed date: 05/04/2012 HepB completed created date: 09/20/2024 administer ed date: 12/04/2011 HepB completed created date: 09/20/2024 administer ed date: 11/03/2011 COVID completed SARS-COV-2 (COVID-19) vaccine, mRNA, spike protein, LNP, preservative free, gian-sucrose, 30 mcg/0.3 mL dose lotNumber: [id number] expiry: 03/15/2025 Mfg: Comirnaty Given 0.3 ml Right Deltoid intramuscularly 309 CVX created date: 02/21/2025 consent date: 02/21/2025 administer ed date: 02/21/2025 Educated by on 02/21/2025 Influenza completed Influenza, adjuvanted, inactivated, trivalent, injectable, preservative free lotNumber: [id number] expiry: 05/21/2026 Mfg: Afluria Given 0.5 ml Left Deltoid intramuscularly 168 CVX created date: 07/27/2025 consent date: 07/27/2025 administer ed date: 09/04/2025 Educated by on 09/04/2025 COVID completed SARS-COV-2 (COVID-19) vaccine, mRNA, spike protein, LNP, preservative free, gian-sucrose, 30 mcg/0.3 mL dose lotNumber: [id number] expiry: 07/29/2026 Mfg: Comirnaty Given 0.3 ml Right Deltoid intramuscularly 309 CVX created date: 07/27/2025 consent date: 07/27/2025 administer ed date: 08/28/2025 Educated by Douglas Castrejon LPN on 08/29/2025 Pt tolerated it well Medications Section Medication Name Status Code CodeSystem Dose Route Frequency Admin Type Sig Text Start Date End Date Indication risperiDONE Oral Tablet 0.25 MG active 12024 8 RXNORM 1 table t Oral at bedtime Routin e Give 1 table t by mouth at bedti me relat ed to MAJOR DEPRE SSIVE DISOR JAZLYN, SINGL E EPISO DE, UNSPE CIFIE D (F32. 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 90) 2024 - pain Ascorbic Acid Tablet 500 MG active 46857 2 RXNORM 1 table t Oral one time a day Routin e Give 1 table t by mouth one time a day for wound heali ng relat ed to PRESS URE ULCER OF SACRA L REGIO N, UNSTA GEABL E (L89. 150) 2024 - wound healing Lactulose Solution 10 GM/15ML active 97839 7 RXNORM 30 krissy liter Oral as needed PRN Give 30 krissy liter by mouth every 24 hours as neede d for Const ipati on relat ed to CONST IPATI ON, UNSPE CIFIE D (K59. 00) 2024 - Constipatio n EPINEPHrine Injection Solution Auto-inject or 0.3 MG/0.3ML active 52954 05 RXNORM 0.3 ml Intram uscula r as needed PRN Injec t 0.3 ml intra muscu larly every 5 minut es as neede d for Anaph ylaxi s may repea t in 3-5 minut es for 2 doses 2024 - Anaphylaxis Acetaminoph en Rectal Suppository 650 MG active 3 RXNORM 1 suppo sitor y Rectal as needed PRN Inser t 1 suppo sitor y recta lly every 6 hours as neede d for gener al disco mfort /temp above 101 relat ed to UNSPE CIFIE D OSTEO ARTHR ITIS, UNSPE CIFIE D SITE (M19. 90) not to excee d 3gm/2 4hour s from all [facility] es 2024 - general discomfort/ temp above 101 Milk of Magnesia Suspension 1200 MG/15ML active 7 RXNORM 30 ml Oral as needed PRN Give 30 ml by mouth as neede d for const ipati on relat ed to CONST IPATI ON, UNSPE CIFIE D (K59. 00) daily . If no BM in 3 days. Disco ntinu e if on dialy sis 2024 - constipatio n Bisacodyl Laxative Suppository 10 MG active 9 RXNORM 1 suppo sitor y Rectal as needed PRN Inser t 1 suppo sitor y recta lly as neede d for const ipati on relat ed to CONST IPATI ON, UNSPE CIFIE D (K59. 00) daily . If MOM ineff ectiv e 2024 - constipatio n Fleet Enema Rectal Enema active 1 appli cator ful Rectal as needed PRN Inser t 1 appli cator ful recta lly as neede d for const ipati on relat ed to CONST IPATI ON, UNSPE CIFIE D (K59. 00) daily . If Bisac odyl Suppo sitor y ineff ectiv e. Disco ntinu e if on dialy sis 2024 - constipatio n Naloxone HCl Injection Solution 0.4 MG/ML active 29 RXNORM 1 ml Intram uscula r as needed PRN Injec t 1 ml intra muscu larly as neede d for suspe cted opioi d overd ose may repea t in 2-3 minut es if no rever rebecca effec t is noted . Signs of overd ose may inclu de pinpo int pupil s, resp. depre ssion or diffi cult arous ing resid ent. Call 911-U jannet [place] 2024 - suspected opioid overdose Naloxone HCl Nasal Liquid 4 MG/0.1ML active 28170 59 RXNORM 1 spray in nostri l as needed PRN 1 spray in nostr il as neede d for suspe cted opioi d overd ose may repea t in 2-3 minut es if no rever rebecca effec t is noted . Signs of overd ose may inclu de pinpo int pupil s, resp. depre ssion or diffi cult arous ing resid ent. Call 911-U jannet [place] 2024 - suspected opioid overdose FLUoxetine HCl Oral Capsule 10 MG active 69381 4 RXNORM 1 capsu le Oral one time a day Routin e Give 1 capsu le by mouth one time a day for Depre ssion relat ed to MAJOR DEPRE SSIVE DISOR JAZLYN, RECUR RENT, SEVER E WITH PSYCH OTIC SYMPT OMS (F33. 3) 2024 - Depression Ondansetron HCl Tablet 4 MG active 2 RXNORM 1 table t Oral as needed PRN Give 1 table t by mouth every 8 hours as neede d for Nause a and Vomit ing 2024 - Nausea and Vomiting Loperamide HCl Capsule 2 MG active 18741 6 RXNORM 1 capsu le Oral as needed PRN Give 1 capsu le by mouth as neede d for Diarr hea after each loose stool 2024 - Diarrhea Atorvastati n Calcium Tablet 20 MG active 62373 0 RXNORM 1 table t Oral at bedtime Routin e Give 1 table t by mouth at bedti me for hyper ipide luis relat ed to HYPER LIPID EMIA, UNSPE TATEE D (E78. 5) 2024 - hyperipidem ia Multivitami n-Minerals Oral Tablet active 1 table t Oral one time a day Routin e Give 1 table t by mouth one time a day relat ed to PRESS URE ULCER OF SACRA L REGIO N, UNSTA GEABL E (L89. 150) 2024 - - Senna Tablet 8.6 MG active 62131 5 RXNORM 8.6 mg Oral two times a day Routin e Give 8.6 mg by mouth two times a day for Const ipati on relat ed to CONST IPATI ON, UNSPE CIFIE D (K59. 00) 2024 - Constipatio n Docusate Sodium Capsule 100 MG active 84626 05 RXNORM 1 capsu le Oral two times a day Routin e Give 1 capsu le by mouth two times a day for const ipati on relat ed to CONST IPATI ON, UNSPE CIFIE D (K59. 00) 2024 - constipatio n Acetaminoph en Oral Tablet 325 MG active 26812 2 RXNORM 2 table t Oral at bedtime Routin e Give 2 table t by mouth at bedti me for Help with disco mfort from splin t relat ed to CONTR ACTUR E, LEFT HAND (M24. 542) 2024 - Help with discomfort from splint Magnesium Oxide -Mg Supplement Oral Tablet 400 (240 Mg) MG active 1 RXNORM 1 table t Oral one time a day Routin e Give 1 table t by mouth one time a day for Hypom lilia luis 2024 - Hypomagnesm ia HumaLOG Injection Solution 100 UNIT/ML aborted 19955 8 RXNORM n/a n/a Subcut aneous three times a day Routin e Injec t as per slidi ng scale : if 200 - 250 = 2 units ; 251 - 300 = 4 units ; 301 - 350 = 6 units ; 351 - 999 = 8 units Call MD if BS > 400 or BS < 70 , subcu taneo raeann three times a day relat ed to TYPE 2 DIABE ASIA JORDONI TUS WITHO UT COMPL ICATI ONS (E11. 9) 09/26 - glipiZIDE Oral Tablet 5 MG active 67437 0 RXNORM 1 table t Oral one time a day Routin e Give 1 table t by mouth one time a day relat ed to TYPE 2 DIABE ASIA JORDONI TUS WITHO UT COMPL ICATI ONS (E11. 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 73) 2024 - - Baclofen Oral Tablet 10 MG active 60989 1 RXNORM 0.5 table t Oral three times a day Routin e Give 0.5 table t by mouth three times a day relat ed to CONTR ACTUR E, LEFT HAND (M24. 542) 2024 - - MiraLax Powder 17 GM/SCOOP active 57207 5 RXNORM 17 gram Oral two times a day Routin e Give 17 gram by mouth two times a day relat ed to CONST IPATI ON, UNSPE CIFIE D (K59. 00) 2024 - - Insulin Aspart FlexPen Subcutaneou s Solution Pen-injecto r 100 UNIT/ML active n/a n/a Subcut aneous with meals Routin e Injec t as per anjali scale : if 0 - 70 = 0 Call provi jazlyn <70; 71 - 199 = 0; 200 - 250 = 2; 251 - 300 = 4; 301 - 350 = 6; 351 - 400 = 8; 401 - 999 = 8 Call provi jazlyn >400, subcu taneo usly with meals relat ed to TYPE 2 DIABE ASIA JORDONI TUS WITHO UT COMPL ICATI ONS (E11. 9) 2024 - - Mental Status Section Date Assessment Total Score Description 08/26/2025 BIMS 07 severe cognitiv e impairment CAM 0 No delirium ind icated PHQ-9 00 06/03/2025 BIMS 04 severe cognitiv e impairment CAM 0 No delirium ind icated PHQ-9 00 Insurance Providers Plan of Treatment Section Interventions Intervention Code Code System Display Name Proposed D ate Problems Problem # Description Date of onset Resolved Date Code CodeSystem Concern Status 1 DYSPHAGIA, OROPHARYNGEAL PHASE 06/22/[address] active 2 CONTACT WITH AND (SUSPECTED) EXPOSURE TO COVID-19 06/02/[address] active 3 OTHER SPECIFIED PERSONAL RISK FACTORS, NOT ELSEWHERE CLASSIFIED 02/06/[address] active 4 DEMENTIA IN OTHER DISEASES CLASSIFIED ELSEWHERE, UNSPECIFIED SEVERITY, WITH MOOD DISTURBANCE 01/30/[address] active 5 DISORDER OF TEETH AND SUPPORTING STRUCTURES, UNSPECIFIED 01/30/[address] active 6 BRADYCARDIA, UNSPECIFIED 11/28/[address] active 7 CONTACT WITH AND (SUSPECTED) EXPOSURE TO OTHER VIRAL COMMUNICABLE DISEASES 11/28/[address] active 8 MAJOR DEPRESSIVE DISORDER, SINGLE EPISODE, UNSPECIFIED 11/28/[address] active 9 ABNORMAL FINDING OF BLOOD CHEMISTRY, UNSPECIFIED 09/28/[address] active 10 ANEMIA, UNSPECIFIED 09/28/[address] active 11 RETENTION OF URINE, UNSPECIFIED 09/28/[address] active 12 UNSPECIFIED DEMENTIA, UNSPECIFIED SEVERITY, WITHOUT BEHAVIORAL DISTURBANCE, PSYCHOTIC DISTURBANCE, MOOD DISTURBANCE, AND ANXIETY 09/19/[address] active 13 ABNORMAL POSTURE 09/12/[address] active 14 DYSPHAGIA, ORAL PHASE 09/12/[address] active 15 UNSPECIFIED ABNORMALITIES OF GAIT AND MOBILITY 09/12/[address] active 16 XEROSIS CUTIS 09/12/[address] active 17 ADULT FAILURE TO THRIVE 09/11/[address] active 18 CONTRACTURE, LEFT HAND 09/11/[address] active 19 CONTRACTURE, RIGHT HAND 09/11/[address] active 20 DEMENTIA IN OTHER DISEASES CLASSIFIED ELSEWHERE, MILD, WITHOUT BEHAVIORAL DISTURBANCE, PSYCHOTIC DISTURBANCE, MOOD DISTURBANCE, AND ANXIETY 09/11/[address] active 21 OTHER FRONTOTEMPORAL NEUROCOGNITIVE DISORDER 09/11/[address] active 22 PARAPHILIA, UNSPECIFIED 09/11/[address] active 23 PERSONAL HISTORY OF TRANSIENT ISCHEMIC ATTACK (TIA), AND CEREBRAL INFARCTION WITHOUT RESIDUAL DEFICITS 09/11/[address] active 24 PHANTOM LIMB SYNDROME WITH PAIN 09/11/[address] active 25 PRESSURE ULCER OF SACRAL REGION, STAGE 4 09/11/[address] active 26 PRESSURE ULCER OF SACRAL REGION, UNSPECIFIED STAGE 09/11/2012/16/[address] completed 27 TYPE 2 DIABETES MELLITUS WITH DIABETIC NEUROPATHY, UNSPECIFIED 09/11/[address] active 28 TYPE 2 DIABETES MELLITUS WITH OTHER SKIN ULCER 09/11/2009/26/[address] completed 29 UNSPECIFIED PROTEIN-CALORIE MALNUTRITION 09/11/[address] active 30 ACQUIRED ABSENCE OF LEFT LEG BELOW KNEE 09/08/[address] active 31 ACQUIRED ABSENCE OF RIGHT LEG ABOVE KNEE 09/08/[address] active 32 CONSTIPATION, UNSPECIFIED 09/08/[address] active 33 CONTRACTURE, LEFT WRIST 09/08/[address] active 34 DENTAL CARIES ON PIT AND FISSURE SURFACE PENETRATING INTO PULP 09/08/[address] active 35 DENTAL CARIES, UNSPECIFIED 09/08/[address] active 36 ESSENTIAL (PRIMARY) HYPERTENSION 09/08/[address] active 37 ESSENTIAL TREMOR 09/08/[address] active 38 HISTORY OF FALLING 09/08/[address] active 39 HYPERLIPIDEMIA, UNSPECIFIED 09/08/[address] active 40 INFLAMMATORY POLYPS OF COLON WITHOUT COMPLICATIONS 09/08/[address] active 41 IRREVERSIBLE PULPITIS 09/08/[address] active 42 VOIP ENGINEER (CURRENT) USE OF INSULIN 09/08/[address] active 43 MAJOR DEPRESSIVE DISORDER, RECURRENT, SEVERE WITH PSYCHOTIC SYMPTOMS 09/08/[address] active 44 MIXED INCONTINENCE 09/08/[address] active 45 MUSCLE WEAKNESS (GENERALIZED) 09/08/[address] active 46 OTHER SPECIFIED DISORDERS OF TEETH AND SUPPORTING STRUCTURES 09/08/[address] active 47 PAIN IN UNSPECIFIED HIP 09/08/[address] active 48 PEDOPHILIA 09/08/[address] active 49 PERSONAL HISTORY OF COVID-19 09/08/[address] active 50 PERSONALITY DISORDER, UNSPECIFIED 09/08/[address] active 51 PRESSURE ULCER OF SACRAL REGION, UNSTAGEABLE 09/08/2009/11/[address] completed 52 TYPE 2 DIABETES MELLITUS WITHOUT COMPLICATIONS 09/08/[address] active 53 UNSPECIFIED CATARACT 09/08/[address] active 54 UNSPECIFIED OSTEOARTHRITIS, UNSPECIFIED SITE 09/08/[address] active 55 UNSPECIFIED PSYCHOSIS NOT DUE TO A SUBSTANCE OR KNOWN PHYSIOLOGICAL CONDITION 09/08/[address] active Reason for Referral No Reasons for Referral Entered Social History Social History Observation Description Start Date End Date Code Code System Current Smoking Status Tobacco smoking consumption unknown 740962556 SNOMED CT Sex Assigned At Male 1950 86239-4 [facility] Gender Identity Sexual Orientation Vital Signs Code Code System Vitals Name Values and Units Timing Information 99885-6 [facility] Pain Level Value=4.0 09/29/2025 9279-1 [facility] Respiratory Rate Value=18.0 Units=/m in 09/29/2025 8310-5 [facility] Body Temperature Value=97.3 Units= F 09/29/2025 25090-2 [facility] O2 % BldC Oximetry Value=97.0 Units= % 09/29/2025 8462-4 [facility] Blood Pressure-Diastolic Value=86 Un its=mmHg 09/29/2025 8480-6 [facility] Blood Pressure-Systolic Igdts=057 Un its=mmHg 09/29/2025 8867-4 [facility] Heart rate Value=77.0 Units=/min 06/2025 2339-0 [facility] Blood Sugar Znzis=305.0 Units=mg/dL 09/29/2025 54288-2 [facility] Weight Ocxkp=669.2 Units=Lbs 05/2025 8302-2 [facility] Height Value=67.0 Units=Inches 03/12/2025
--- OUTSIDE RECORDS SUMMARY | 2025-09-29 21:43 | XMS_ITS | Encounter Summary ---
Author Organization [employer] [facility] Address [address] [place] [address] Care Team Providers Care Arborist Climber Name Role Phone Junior Real Primary Care Pro vider Encounter Details Date Type Department Care Team (Late st Contact Info) Description 01/10/2025 Lab Requisition [facility] - Main Lab [address] [facility] [place] [address] Junior Real PA [address] [facility] [address] [place] [address] Chest pain, unspecified; Type 2 diabetes mellitus without complications (CMS/HCC V24, CMS/HCC V28); Vomiting, unspecified; Diarrhea, unspecified Social History Tobacco Use Types Packs/Day [...] Procedure Name Priority Date/Time Associated Diagnosis Comments [id number], RSV, FLU A AND B QUALITATIVE RT-PCR, LOCAL REFERENCE LAB STAT 01/10/2025 6:30 AM EST Chest pain, unspecified Type 2 diabetes mellitus without complications (CMS/HCC) Vomiting, unspecified Diarrhea, unspecified COMPLETE BLOOD COUNT STAT 01/10/2025 5:58 AM EST Chest pain, unspecified Type 2 diabetes mellitus without complications (CMS/HCC) Vomiting, unspecified Diarrhea, unspecified COMPREHENSIVE METABOLIC PANEL STAT 01/10/2025 5:58 AM EST Chest pain, unspecified Type 2 diabetes mellitus without complications (CMS/HCC) Vomiting, unspecified Diarrhea, unspecified documented in this encounter Results * [id number], RSV, Influenza A and B qualitative RT-PCR (01/10/2025 6:30 AM EST) SARS COV-2 Not Detected Not Detected LAB MOLECULAR DIAGNOSTICS METHOD 01/10/2025 3:55 PM EST [facility] Comment: Disclaimer: The manner in which this information is used to guide patient care is the responsibility of the healthcare provider. Testing was performed using the [employer] m SARS-CoV-2 test. This test has been authorized by FDA under an Emergency Use Authorization (EUA). This test is only authorized for the duration of time the declaration that circumstances exist justifying the authorization of the emergency use of in vitro diagnostic tests for detection of SARS-CoV-2 virus and/or diagnosis of COVID-19 infection under section 564(b)(1) of the Act, 21 U.S.C. 360bbb- 3(b)(1), unless the authorization is terminated or revoked sooner. Fact sheet for Healthcare Providers can be found at: https://www.fda.gov/media/242637/download Fact sheet for Patients can be found at: https://www.fda.gov/media/468974/download Influenza A PCR Not Detected Not Detected LAB MOLECULAR DIAGNOSTICS METHOD 01/10/2025 3:55 PM EST [facility] Influenza B PCR Not Detected Not Detected LAB MOLECULAR DIAGNOSTICS METHOD 01/10/2025 3:55 PM EST [facility] RSV PCR Not Detected Not Detected LAB MOLECULAR DIAGNOSTICS METHOD 01/10/2025 3:55 PM [facility] Swab Nasopharyngeal structure / Unknown Non-blood Collection / Unknown 01/10/2025 6:30 AM EST 01/10/2025 11:27 AM EST Junior CUEVAS LAB MICROBIOLOGY - GENERAL ORDERABLES Final Result [facility] [address] [place] [address], [place] [phone] * (ABNORMAL) Comprehensive metabolic panel (01/10/2025 5:58 AM EST) Sodium 142 133 - 145 mmol/L LAB CHEMISTRY METHOD 01/10/2025 12:39 PM [facility] Potassium 3.9 3.5 - 5.5 mmol/L LAB CHEMISTRY METHOD 01/10/2025 12:39 PM [facility] Chloride 107 96 - 110 mmol/L LAB CHEMISTRY METHOD 01/10/2025 12:39 PM [facility] CO2 27 21 - 32 mmol/L LAB CHEMISTRY METHOD 01/10/2025 12:39 PM [facility] Anion Gap 8 3 - 11 LAB CHEMISTRY METHOD 01/10/2025 12:39 PM [facility] Glucose 240(H) 70 - 100 mg/dL LAB CHEMISTRY METHOD 01/10/2025 12:39 PM [facility] BUN 19 5 - 25 mg/dL LAB CHEMISTRY METHOD 01/10/2025 12:39 PM [facility] Creatinine 0.46(L) 0.70 - 1.30 mg/dL LAB CHEMISTRY METHOD 01/10/2025 12:39 PM [facility] eGFR 109 >=60 mL/min/1. 73m2 LAB CHEMISTRY METHOD 01/10/2025 12:39 PM [facility] Comment:Calculation based on the Chronic Kidney Disease Epidemiology Collaboration (CKD-EPI) equation refit without adjustment for race. BUN/Creatinine Ratio 41.3 LAB CHEMISTRY METHOD 01/10/2025 12:39 PM [facility] Calcium 8.5 8.5 - 10.5 mg/dL LAB CHEMISTRY METHOD 01/10/2025 12:39 PM [facility] AST (SGOT) 8(L) 10 - 42 unit/L LAB CHEMISTRY METHOD 01/10/2025 12:39 PM [facility] ALT (SGPT) 11 10 - 60 unit/L LAB CHEMISTRY METHOD 01/10/2025 12:39 PM [facility] Alkaline Phosphatase 82 42 - 121 unit/L LAB CHEMISTRY METHOD 01/10/2025 12:39 PM [facility] Total Protein 5.6(L) 6.0 - 8.0 g/dL LAB CHEMISTRY METHOD 01/10/2025 12:39 PM [facility] Albumin 2.8(L) 3.2 - 5.0 g/dL LAB CHEMISTRY METHOD 01/10/2025 12:39 PM [facility] Total Bilirubin 0.4 0.0 - 1.4 mg/dL LAB CHEMISTRY METHOD 01/10/2025 12:39 PM [facility] Blood Venous blood specimen / Unknown Venipuncture / Unknown 01/10/2025 5:58 AM EST 01/10/2025 11:27 AM EST Junior [facility] BLOOD ORDERAB LES Final Result [facility] [address] [place] [address], * (ABNORMAL) Complete blood count (01/10/2025 5:58 AM EST) WBC 5.0 4.8 - 10.8 K/mcL LAB HEMETOLOGY METHOD 01/10/2025 1:13 PM [facility] RBC 4.00(L) 4.50 - 5.50 M/mcL LAB HEMETOLOGY METHOD 01/10/2025 1:13 PM [facility] Hemoglobin 11.0(L) 13.5 - 17.5 g/dL LAB HEMETOLOGY METHOD 01/10/2025 1:13 PM [facility] Hematocrit 35.1(L) 42.0 - 54.0 % LAB HEMETOLOGY METHOD 01/10/2025 1:13 PM EST [facility] MCV 88.4 79.0 - 98.0 FL LAB HEMETOLOGY METHOD 01/10/2025 1:13 PM [facility] MCH 27.7 27.0 - 32.0 pcg LAB HEMETOLOGY METHOD 01/10/2025 1:13 PM [facility] MCHC 31.3(L) 32.0 - 37.0 g/dL LAB HEMETOLOGY METHOD 01/10/2025 1:13 PM [facility] RDW 15.5(H) 11.0 - 15.0 % LAB HEMETOLOGY METHOD 01/10/2025 1:13 PM [facility] Platelets 169 130 - 400 K/mcL LAB HEMETOLOGY METHOD 01/10/2025 1:13 PM [facility] MPV 11.9(H) 7.0 - 11.0 FL LAB HEMETOLOGY METHOD 01/10/2025 1:13 PM EST [facility] NRBC 0.0 <1.0 % LAB HEMETOLOGY METHOD 01/10/2025 1:13 PM [facility] NRBC Absolute 0.00 <0.10 K/mcL LAB HEMETOLOGY METHOD 01/10/2025 1:13 PM [facility] Blood Venous blood specimen / Unknown Venipuncture / Unknown 01/10/2025 5:58 AM EST 01/10/2025 11:27 AM EST us Junior [facility] BLOOD ORDERAB LES Final Result [facility] [address] [place] [address], documented in this encounter Visit Diagnoses Diagnosis Chest pain, unspecified Type 2 diabetes mellitus without complications (CMS/HCC V24, CMS/HCC V28) Vomiting, unspecified Diarrhea, unspecified documented in this encounter Care Teams Arborist Climber Relationship Specialty Start Date End Date Junior Real PA [address] [address] PCP - General 01/10/25 documented as of this encounter
--- OUTSIDE RECORDS SUMMARY | 2025-09-29 21:43 | XMS_ITS | Encounter Summary ---
Author Organization [email or web address] Address [address] [place] [address] Care Team Providers Care Instructor Extension Work Name Role Phone Junior Real Primary Care Pro vider Encounter Details Date Type Department Care Team (Latest Contact Info) Description 03/19/2025 Lab Requisition [facility] - Main Lab [address] [facility] [address] Blake Prescott MD [address] [place] [address] Anemia, unspecified; Type 2 diabetes mellitus without complications (CMS/HCC V24, CMS/[facility] V28) Social History Tobacco Use Types Packs/Day [...] TO FREE T4 AND FREE T3 Routine 03/19/2025 5:51 AM EDT Anemia, unspecified Type 2 diabetes mellitus without complications (CMS/HCC V24, CMS/HCC V28) COMPLETE BLOOD COUNT Routine 03/19/2025 5:51 AM EDT Anemia, unspecified Type 2 diabetes mellitus without complications (CMS/HCC V24, CMS/HCC V28) COMPREHENSIVE METABOLIC PANEL Routine 03/19/2025 5:51 AM EDT Anemia, unspecified Type 2 diabetes mellitus without complications (CMS/HCC V24, CMS/HCC V28) documented in this encounter Results * Thyroid stimulating hormone with reflex to free t4 and free t3 (03/19/2025 5:51 AM EDT) Pathologist [facility] TSH 1.65 0.40 - 4.00 mcIU/mL LAB CHEMISTRY METHOD 03/19/2025 1:34 PM [facility] Blood Venous blood specimen / Unknown Venipuncture / Unknown 03/19/2025 5:51 AM EDT 03/19/2025 9:49 AM EDT Blake Prescott MD LAB BLOOD ORDERABLES Final R esult [facility] [address] [place] [address], * (ABNORMAL) Comprehensive metabolic panel (03/19/2025 5:51 AM EDT) [facility] Sodium 142 133 - 145 mmol/L LAB CHEMISTRY METHOD 03/19/2025 12:43 PM [facility] Potassium 3.7 3.5 - 5.5 mmol/L LAB CHEMISTRY METHOD 03/19/2025 12:43 PM [facility] Chloride 107 96 - 110 mmol/L LAB CHEMISTRY METHOD 03/19/2025 12:43 PM [facility] CO2 27 21 - 32 mmol/L LAB CHEMISTRY METHOD 03/19/2025 12:43 PM [facility] Anion Gap 8 3 - 11 LAB CHEMISTRY METHOD 03/19/2025 12:43 PM [facility] Glucose 121(H) 70 - 100 mg/dL LAB CHEMISTRY METHOD 03/19/2025 12:43 PM [facility] BUN 17 5 - 25 mg/dL LAB CHEMISTRY METHOD 03/19/2025 12:43 PM [facility] Creatinine 0.38(L) 0.70 - 1.30 mg/dL LAB CHEMISTRY METHOD 03/19/2025 12:43 PM [facility] eGFR 116 >=60 mL/min/1. 73m2 LAB CHEMISTRY METHOD 03/19/2025 12:43 PM [facility] Comment:Calculation based on the Chronic Kidney Disease Epidemiology Collaboration (CKD-EPI) equation refit without adjustment for race. BUN/Creatinine Ratio 44.7 LAB CHEMISTRY METHOD 03/19/2025 12:43 PM [facility] Calcium 8.7 8.5 - 10.5 mg/dL LAB CHEMISTRY METHOD 03/19/2025 12:43 PM [facility] AST (SGOT) 8(L) 10 - 42 unit/L LAB CHEMISTRY METHOD 03/19/2025 12:43 PM [facility] ALT (SGPT) 11 10 - 60 unit/L LAB CHEMISTRY METHOD 03/19/2025 12:43 PM [facility] Alkaline Phosphatase 70 42 - 121 unit/L LAB CHEMISTRY METHOD 03/19/2025 12:43 PM [facility] Total Protein 5.6(L) 6.0 - 8.0 g/dL LAB CHEMISTRY METHOD 03/19/2025 12:43 PM [facility] Albumin 2.9(L) 3.2 - 5.0 g/dL LAB CHEMISTRY METHOD 03/19/2025 12:43 PM [facility] Total Bilirubin 0.5 0.0 - 1.4 mg/dL LAB CHEMISTRY METHOD 03/19/2025 12:43 PM [facility] Blood Venous blood specimen / Unknown Venipuncture / Unknown 03/19/2025 5:51 AM EDT 03/19/2025 9:49 AM EDT us Blake Prescott MD LAB BLOOD ORDERABLES Final R esult [facility] [address] [place] [address], * (ABNORMAL) Complete blood count (03/19/2025 5:51 AM EDT) [facility] WBC 5.8 4.8 - 10.8 K/mcL LAB HEMETOLOGY METHOD 03/19/2025 10:55 AM [facility] RBC 4.10(L) 4.50 - 5.50 M/mcL LAB HEMETOLOGY METHOD 03/19/2025 10:55 AM [facility] Hemoglobin 11.3(L) 13.5 - 17.5 g/dL LAB HEMETOLOGY METHOD 03/19/2025 10:55 AM [facility] Hematocrit 35.6(L) 42.0 - 54.0 % LAB HEMETOLOGY METHOD 03/19/2025 10:55 AM [facility] MCV 86.2 79.0 - 98.0 FL LAB HEMETOLOGY METHOD 03/19/2025 10:55 AM [facility] MCH 27.4 27.0 - 32.0 pcg LAB HEMETOLOGY METHOD 03/19/2025 10:55 AM [facility] MCHC 31.7(L) 32.0 - 37.0 g/dL LAB HEMETOLOGY METHOD 03/19/2025 10:55 AM [facility] RDW 15.1(H) 11.0 - 15.0 % LAB HEMETOLOGY METHOD 03/19/2025 10:55 AM [facility] Platelets 164 130 - 400 K/mcL LAB HEMETOLOGY METHOD 03/19/2025 10:55 AM [facility] MPV 12.0(H) 7.0 - 11.0 FL LAB HEMETOLOGY METHOD 03/19/2025 10:55 AM [facility] NRBC 0.0 <1.0 % LAB HEMETOLOGY METHOD 03/19/2025 10:55 AM [facility] NRBC Absolute 0.00 <0.10 K/mcL LAB HEMETOLOGY METHOD 03/19/2025 10:55 AM EDT [facility] Blood Venous blood specimen / Unknown Venipuncture / Unknown 03/19/2025 5:51 AM EDT 03/19/2025 9:49 AM EDT us Blake Prescott MD LAB BLOOD ORDERABLES Final R esult [facility] [address] [place] [address], documented in this encounter Visit Diagnoses Diagnosis Anemia, unspecified Type 2 diabetes mellitus without complications (CMS/HCC V24, CMS/HCC V28) documented in this encounter Care Teams Instructor Extension Work Relationship Specialty Start Date End Date Junior Real PA [address] [address] PCP - General 01/10/25 documented as of this encounter
--- OUTSIDE RECORDS SUMMARY | 2025-09-29 21:43 | XMS_ITS | Encounter Summary ---
Author Organization [facility] Address [address] [place] [address] Care Team Providers Care Laborer Cook House Name Role Phone Junior Real Primary Care Pro vider Encounter Details Date Type Department Care Team (Latest Contact Info) Description 02/23/2025 Lab Requisition [facility] - Main Lab [address] [facility] [place] [address] Blake Prescott MD [address] [place] [address] Anemia, unspecified; Type 2 diabetes [...] Associated Diagnosis Comments COMPLETE BLOOD COUNT Routine 02/23/2025 8:12 AM EDT Anemia, unspecified Type 2 diabetes mellitus without complications (CMS/HCC V24, CMS/HCC V28) Essential (primary) hypertension documented in this encounter Results * (ABNORMAL) Complete blood count (02/23/2025 8:12 AM EDT) WBC 4.6(L) 4.8 - 10.8 K/[facility] LAB HEMETOLOGY METHOD 02/23/2025 11:18 AM EDT [facility] RBC 4.50 4.50 - 5.50 M/[facility] LAB HEMETOLOGY METHOD 02/23/2025 11:18 AM EDT [facility] Hemoglobin 12.5(L) 13.5 - 17.5 g/dL LAB HEMETOLOGY METHOD 02/23/2025 11:18 AM [facility] Hematocrit 39.8(L) 42.0 - 54.0 % LAB HEMETOLOGY METHOD 02/23/2025 11:18 AM [facility] MCV 89.4 79.0 - 98.0 FL LAB HEMETOLOGY METHOD 02/23/2025 11:18 AM [facility] MCH 28.1 27.0 - 32.0 pcg LAB HEMETOLOGY METHOD 02/23/2025 11:18 AM [facility] MCHC 31.4(L) 32.0 - 37.0 g/dL LAB HEMETOLOGY METHOD 02/23/2025 11:18 AM [facility] RDW 15.3(H) 11.0 - 15.0 % LAB HEMETOLOGY METHOD 02/23/2025 11:18 AM [facility] Platelets 162 130 - 400 K/mcL LAB HEMETOLOGY METHOD 02/23/2025 11:18 AM [facility] MPV 12.2(H) 7.0 - 11.0 FL LAB HEMETOLOGY METHOD 02/23/2025 11:18 AM [facility] NRBC 0.0 <1.0 % LAB HEMETOLOGY METHOD 02/23/2025 11:18 AM [facility] NRBC Absolute 0.00 <0.10 K/mcL LAB HEMETOLOGY METHOD 02/23/2025 11:18 AM [facility] Blood Venous blood specimen / Unknown Venipuncture / Unknown 02/23/2025 8:12 AM EDT 02/23/2025 10:48 AM EDT us Blake Prescott MD LAB BLOOD ORDERABLES Final R esult [facility] [address] [place] [address], documented in this encounter Visit Diagnoses Diagnosis Anemia, unspecified Type 2 diabetes mellitus without complications (CMS/HCC V24, CMS/HCC V28) Essential (primary) hypertension Unspecified essential hypertension documented in this encounter Care Teams Laborer Cook House Relationship Specialty Start Date End Date Junior Real PA [address] [address] PCP - General 01/10/25 documented as of this encounter
--- OUTSIDE RECORDS SUMMARY | 2025-09-29 21:43 | XMS_ITS | Encounter Summary ---
Author Organization [employer] [facility] Address [address] [place] [address] Care Team Providers Care Journeyman Power Plant Operator Name Role Phone Jorgetamanna Junior CUEVAS Primary Care Pro vider Encounter Details Date Type Department Care Team (Late st Contact Info) Description 01/10/2025 Lab Requisition [facility] - Main Lab [address] [facility] [place] [address] Blake Prescott MD [address] [place] [address] Fever, unspecified Social History Tobacco [...] Procedure Name Priority Date/Time Associated Diagnosis Comments URINALYSIS MICROSCOPIC ONLY Routine 01/10/2025 2:00 PM EST Fever, unspecified URINALYSIS MICROSCOPIC ONLY Routine 01/10/2025 2:00 PM EST Fever, unspecified CULTURE URINE Routine 01/10/2025 2:00 PM EST Fever, unspecified documented in this encounter Results * (ABNORMAL) Urinalysis microscopic only (01/10/2025 2:00 PM EST) RBC, Urine 3.0 0 - 4 /HPF LAB URINALYSIS - AUTOMATED METHOD 01/10/2025 3:58 PM EST [facility] WBC, Urine 22.3(H) 0 - 4 /HPF LAB URINALYSIS - AUTOMATED METHOD 01/10/2025 3:58 PM EST [facility] Squamous Epithelial, Urine 2 0 - 60 /LPF LAB URINALYSIS - AUTOMATED METHOD 01/10/2025 3:58 PM EST [facility] Bacteria, Urine Few(A) Negative /HPF LAB URINALYSIS - AUTOMATED METHOD 01/10/2025 3:58 PM EST [facility] Hyaline Casts, Urine 0.0 0 - 3 /LPF LAB URINALYSIS - AUTOMATED METHOD 01/10/2025 3:58 PM EST [facility] Urine Urine specimen obtained by clean catch procedure / Unknown 01/10/2025 2:00 PM EST 01/10/2025 3:10 PM EST Blake Prescott MD LAB URINE ORDERABLES Final R esult Performing Organization Address City/[facility]/ZIP Co de Phone Number [facility] [address] [place] [address], * (ABNORMAL) Culture urine (01/10/2025 2:00 PM EST) Culture, Urine >100,000 CFU/mL Aerococcus urinae(A) MARRY 01/13/2025 8:59 AM EST [facility] Comment: Susceptibility testing not routinely performed. If further therapeutic information is required, please consult an infectious disease specialist. Edited result: Previously reported as Gram Positive Cocci on 01/12/2025 at 1330 EST. Urine Urine specimen obtained by clean catch procedure / Unknown 01/10/2025 2:00 PM EST 01/10/2025 3:10 PM EST Narrative [facility] - 01/13/2025 8:59 AM EST Additional colony types present in insignificant amounts. Blake Prescott MD LAB MICROBIOLOGY - GENERAL O RDERABLES Final Result Performing Organization Address City/[facility]/ZIP Co de Phone Number [facility] [address] [place], [place] [address] [phone] documented in this encounter Visit Diagnoses Diagnosis Fever, unspecified documented in this encounter Care Teams Journeyman Power Plant Operator Relationship Specialty Start Date End Date Junior Real PA [address] [address] PCP - General 01/10/25 documented as of this encounter
--- OUTSIDE RECORDS SUMMARY | 2025-09-29 21:43 | XMS_ITS | Clinical Summary ---
Author Organization [address] [facility] Address [address] [place] [address] Phone Care Team Providers Care Cable Strander Name Role Phone Junior Real Primary Care Pro vider Social History Tobacco Use Types Packs/Day Years Used Date Smoking Tobacco: Never Assessed Sex and Gender Information Value Date Recorded Sex Assigned at Not on file Legal Sex Male 11:20 AM EST Gender Identity Not on file Sexual Orientation Not on file Plan of Treatment Health Maintenance Due Date Last Done Comments DTaP,Tdap,and Td Vaccines (1 - Tdap) 1968 Pneumococcal Vaccine: 50+ Ye ars (1 of 2 - PCV) 1968 Zoster Vaccines (1 of 2) 1999 RSV Immunization Adult Patie nts (1 - 1-dose 75+ series) 2024 Depression Screening 11/22/2024 Falls Risk Assessment 01/10/2025 Hepatitis C Screening 01/10/2025 Medicare Annual Wellness Visit 01/10/2025 Social Influencers of Health Screening 01/10/2025 COVID-19 Vaccine (1 - 2023-2 5 season) 2025 Influenza Vaccine (#1) 2025 Cholesterol Screening (Lipid Panel) 06/01/2030 06/01/2025 HIB Vaccines Aged Out No longer eligi ble based on patient's age to complete this topic HPV Vaccines Aged Out No longer eligi ble based on patient's age to complete this topic Hepatitis A Vaccines Aged Out No long er eligible based on patient's age to complete this topic Hepatitis B Vaccines Aged Out No long er eligible based on patient's age to complete this topic IPV Vaccines Aged Out No longer eligi ble based on patient's age to complete this topic MMR Vaccines Aged Out No longer eligi ble based on patient's age to complete this topic Meningococcal ACWY Vaccine Aged Out N o longer eligible based on patient's age to complete this topic Meningococcal B Vaccine Aged Out No l onger eligible based on patient's age to complete this topic RSV Immunization Patients Un jazlyn 20 months Aged Out No longer eligible b ased on patient's age to complete this topic Varicella Vaccines Aged Out No longer eligible based on patient's age to complete this topic Procedures Procedure Name Priority Date/Time Associated Diagnosis Comments LIPID PANEL WITH REFLEX TO DIRECT LDL Routine 06/01/2025 7:43 AM EDT Anemia, unspecified Type 2 diabetes mellitus without complications ([facility] V24, [facility] V28) Weakness Hyperlipidemia, unspecified from Last 3 Months or Most Recently Relevant to Health Maintenance Results * (ABNORMAL) Lipid panel with reflex to direct LDL (06/01/2025 7:43 AM EDT) Cholesterol 78 0 - 200 mg/dL LAB CHEMISTRY METHOD 06/01/2025 10:01 AM [facility] Triglycerides 75 0 - 150 mg/dL LAB CHEMISTRY METHOD 06/01/2025 10:01 AM [facility] HDL 24(L) >=40 mg/dL LAB CHEMISTRY METHOD 06/01/2025 10:01 AM [facility] LDL Calculated 39 0 - 100 mg/dL LAB CHEMISTRY METHOD 06/01/2025 10:01 AM [facility] VLDL Cholesterol Ramon 15 mg/dL LAB CHEMISTRY METHOD 06/01/2025 10:01 AM [facility] Non HDL Chol. (LDL+VLDL) 54 <145 mg/dL LAB CHEMISTRY METHOD 06/01/2025 10:01 AM [facility] Chol/HDL Ratio 3.3 0.0 - 4.4 LAB CHEMISTRY METHOD 06/01/2025 10:01 AM [facility] Blood Venous blood specimen / Unknown Venipuncture / Unknown 06/01/2025 7:43 AM EDT 06/01/2025 9:22 AM EDT Blake Prescott MD LAB BLOOD ORDERABLES Final R esult [facility] [address] [place] [address], from Last 3 Months or Most Recently Relevant to Health Maintenance Insurance MEDICAID - [place] MEDICARE Care Teams Cable Strander Relationship Specialty Start Date End Date Junior Real PA [address] [place] [phone] PCP - General 01/10/25
--- OUTSIDE RECORDS SUMMARY | 2025-09-29 21:43 | XMS_ITS | Encounter Summary ---
Author Organization [facility] Address [address] [place] [address] Care Team Providers Care Air Pumper Name Role Phone Junior Real Primary Care Pro vider Encounter Details Date Type Department Care Team (Late st Contact Info) Description 01/18/2025 Lab Requisition [facility] [address] [facility] [place] [address] Junior Real PA [address] [facility] [address] [place] [id number] Hyperosmolality and hypernatremia Social History Tobacco Use Types Packs/Day Years [...] Procedure Name Priority Date/Time Associated Diagnosis Comments BASIC METABOLIC PANEL Routine 01/18/2025 6:03 AM EST Hyperosmolality and hypernatremia documented in this encounter Results * (ABNORMAL) Basic metabolic panel (01/18/2025 6:03 AM EST) Sodium 148(H) 133 - 145 mmol/L LAB CHEMISTRY METHOD 01/18/2025 11:03 AM EST [facility] Potassium 3.7 3.5 - 5.5 mmol/L LAB CHEMISTRY METHOD 01/18/2025 11:03 AM EST [facility] Chloride 116(H) 96 - 110 mmol/L LAB CHEMISTRY METHOD 01/18/2025 11:03 AM EST [facility] CO2 24 21 - 32 mmol/L LAB CHEMISTRY METHOD 01/18/2025 11:[address] [facility] Anion Gap 8 3 - 11 LAB CHEMISTRY METHOD 01/18/2025 11:[address] [facility] Glucose 370(H) 70 - 100 mg/dL LAB CHEMISTRY METHOD 01/18/2025 11:[address] [facility] Comment:Results verified by repeat testing BUN 36(H) 5 - 25 mg/dL LAB CHEMISTRY METHOD 01/18/2025 11:[address] [facility] Creatinine 0.61(L) 0.70 - 1.30 mg/dL LAB CHEMISTRY METHOD 01/18/2025 11:[address] [facility] eGFR 100 >=60 mL/min/1. 73m2 LAB CHEMISTRY METHOD 01/18/2025 11:[address] [facility] Comment:Calculation based on the Chronic Kidney Disease Epidemiology Collaboration (CKD-EPI) equation refit without adjustment for race. BUN/Creatinine Ratio 59.0 LAB CHEMISTRY METHOD 01/18/2025 11:[address] [facility] Calcium 8.3(L) 8.5 - 10.5 mg/dL LAB CHEMISTRY METHOD 01/18/2025 11:[address] [facility] Blood Venous blood specimen / Unknown Venipuncture / Unknown 01/18/2025 6:03 AM EST 01/18/2025 9:18 AM EST us Junior CUEVAS LAB BLOOD ORDERAB LES Final Result [facility] [address] [place] [address], documented in this encounter Visit Diagnoses Diagnosis Hyperosmolality and hypernatremia Hyperosmolality and/or hypernatremia documented in this encounter Care Teams Air Pumper Relationship Specialty Start Date End Date Junior Real PA [address] [address] PCP - General 01/10/25 documented as of this encounter
--- NOTE | 2025-09-29 22:48 | HO.NURTONUR ---
Addendum entered by Kia Tanner RN 09/30/25 06:22: Pt noted to become hypotensive upon sitting upright to drink water at approximately 0130 (76/40, 84/40, 87/42) and hospitalist made aware. New orders obtained 500ml LR Bolus given with brief improvement noted. Pt has minimal response noted when his name is called, most he was awake and alert was during the time he was requesting something to drink and drinking water without issue. The pt was also given albumin x2, maintenence fluids switched to D5 and infusing to the right wrist without s/s of complications noted to the insertion site. Pt's Abd/pelvis CT showed osteomyelitis to the sacral area. BPs have been steady and maintaining with systolics in the low 100s and diastolics in the low 40-50s. Original Note: Pt comes from facility w/ c/o sudden onset altered mental status. Upon arrival in ED pt was noted to be lethargic and primarily responsive to painful stimuli. Pt was tx'd as sepsis w/ rectal temp of 102.2 which was tx'd w/ IV apap' repeat rectal 99. Pt was also noted to be very dehydrated. 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 Per facility paperwork pt is on pureed diet, but giving pt po was not attempted in ED.
[2025-09-29] MEDS: iohexoL 350 MG/ML 100 ML INFUS..BTL IV (23:00)
--- NOTE | 2025-09-29 23:41 | PC.NURSE ---
Report received and care assumed at 2300. The pt is noted to be sleeping, found in bed with eyes closed, respirations even and unlabored. He has his IVF infusing at 125ml/hr without s/s of complications noted. The pt is minimal responsive to verbal stimuli however he is noted to raise his eyebrows when his name is called loudly. He is noted to be mouth breathing, tongue appears dry. IV ABX have been hung and are currently infusing. VSS at this time.
[2025-09-30] VITALS (18 sets, daily range): BP systolic 76–123; BP diastolic 33–67; PULSE 51–64; RESP 11–19; TEMP 36.4–37.6; O2SAT 93–98
--- NOTE | 2025-09-30 00:56 | P.HPHOSP_ITS ---
History of Present Illness Date of Service: 09/30/25 Attending physician on admission: Leander Andrea Chief Complaint: decreased responsiveness patient is a 75-year-old male with a history of dementia, hx CVA with bilateral hand contractures, hyperlipidemia, hypertension, depression, diabetes with diabetic neuropathy, personality disorder, essential tremor, left BKA, right AKA, and failure to thrive, who presented to the ED via EMS from his nursing facility for decreased responsiveness. Patient is unable to provide a reliable HPI, history from ED provider as follows. On arrival to the ED patient was found to be febrile at 102.2, with SpO2 of 92% on room air. No associated hypotension or tachycardia. The patient arrives minimally responsive to verbal stimuli, able to state his name. the pt is now minimally responsive to name, attempts to open eyes but goes back to sleep. pt's nurse notes that he did wake up and drink something and urinated previously. workup in the ED significant for stage 4 sacral ulcer, also seen on CT with a sinus tract extending into the posterior aspect the sacrum with osteomyelitis as well as possible cholecystitis however clinically does not have signs of acute cholecystitis or elevated LFTs. signs of dehydration also seen on exam with dry mucous membranes and BMP with hypernatremic hyperchloremia. Review of Systems 2 Review of Systems: Yes Unobtainable due to mental condition and Unobtainable due to mental status PMFSH Social History Unable to assess alcohol history related to: Unable to respond Smoked in Last 30 Days: No Use of substances other than those prescribed or required for medical reasons: No Advance Directives: No Advance Directives Information Provided: Yes Do you have a plan to hurt others: Vague Meds Allergies Allergy/AdvReac Type Severity Reaction Status Date / Time No Known Allergies Allergy Verified 09/29/25 19:03 Active Medications: Current Medications Dextrose (Dextrose 50 % 25 Gm/50 Ml Syringe) 25 gm IVPUSH Q15M PRN; Protocol PRN Reason: per Hypoglycemia Standing Ord. Glucose (Glucose Gel 15 Gm Gel..Gram.) 15 gm PO Q15M PRN; Protocol PRN Reason: per Hypoglycemia Standing Ord. Piperacillin Sod/Tazobactam (Sod 3.375 gm/ Sodium Chloride) 50 mls @ 100 mls/hr IV Q6H [facility]ATHAN Dextrose (D5w) 1,000 mls @ 75 mls/hr IVCONT .[id number] [facility] Insulin Human Lispro (Insulin Lispro 100 Unit/Ml 3 Ml Vial) 0 unit SUBCUT QIDACHS [facility]; Protocol Pharmacy Consult (Consult Rx Vancomycin Dosing) 1 each MISCELLANE DAILY PRN PRN Reason: Consult order Physical Exam 2 Vital Signs and Narrative: Vital Signs: Last Vital Signs Temp 99.9 F 09/29/25 21:30 Pulse 67 09/29/25 22:41 Resp 21 H 09/29/25 22:41 BP 98/45 L 09/29/25 22:41 Pulse Ox 96 09/29/25 22:41 O2 Del Method Room Air 09/29/25 22:41 BMI result Body Mass Index 22.9 General: AOx3, no acute distress Resp: CTA bilaterally CVS: S1, S2, RRR GI: +BS, NT, no distention Skin: Warm, dry Neuro: Cranial nerves II-XII grossly intact bilaterally. Motor grossly intact bilaterally Extremities: No edema Psych: Appropriate affect Results Labs 09/29/25 19:19 09/29/25 19:19 Labs: Laboratory Results - last 24 hr 09/29/25 09/29/25 09/29/25 19:19 19:39 21:00 MCV 87.2 MCH 27.3 MCHC 31.3 RDW 15.7 Plt Count 169 MPV 12.8 H Immature Gran % (Auto) 0.8 H Neut % (Auto) 62.9 Lymph % (Auto) 23.3 [place] % (Auto) 12.7 H Eos % (Auto) 0.1 Baso % (Auto) 0.2 Lymph # (Auto) 2.0 [place] # (Auto) 1.1 Eos # (Auto) 0.0 Baso # (Auto) 0.0 Abs Immat Gran (auto) 0.07 H Absolute Neuts (auto) 5.3 Absolute Nucleated RBC 0.000 Nucleated RBC % (auto) 0.0 Anion Gap 12 Estim Creat Clear Calc 84.8 Estimated GFR > 60 Random Glucose 321 H Lactic Acid 1.1 Calcium 7.9 L Magnesium 2.4 Total Bilirubin 0.7 AST 12 ALT 6 Alkaline Phosphatase 39 Total Protein 5.7 L Albumin 3.4 L Urine Color Yellow Urine Appearance Clear Urine pH 5.5 Ur Specific [place] >= 1.030 H Urine Protein 100 (2+) H Urine Glucose (UA) >=1000 H Urine Ketones Trace Urine Blood Moderate (2+) H Urine Nitrite Negative Ur Leukocyte Esterase Negative Urine RBC 6-10 H Urine WBC 6-10 H Ur Squamous Epith Cells 0-2 Urine Bacteria None Seen Hyaline Casts 0-2 Influenza Type A (PCR) NEGATIVE Influenza Type B (PCR) NEGATIVE RSV RNA Qual (PCR) NEGATIVE SARS-CoV-2 RNA (RT-PCR) NEGATIVE Assessment and Plan (1) Acute metabolic encephalopathy: Status: Acute (2) Acute osteomyelitis of sacrum: Status: Acute (3) Acute hypernatremia: Status: Acute (4) Abnormal CT of the abdomen: Status: Acute Plan patient is a 75-year-old male with a history of dementia, hyperlipidemia, hypertension, depression, diabetes with diabetic neuropathy, personality disorder, essential tremor, left BKA, right AKA, and failure to thrive, who presented to the ED via EMS from his nursing facility for decreased responsiveness. findings consistent with acute osteomyelitis and dehydration acute metabolic encephalopthy in the setting of acute ostemyelitis of the sacrum from stage 4 sacral ulcer - vancomycin and zosyn - general surgery consult and ID - monitor CBC and BMP acute hyperchloremic hypernatremia likely secondary to dehydration - received 30cc/kg fluid bolus of NS in ED and addtional NS at 125/hr, discontinue now - D5W @ 75/hr - recheck BMP in 4 hours acute cholecystitis on CT - nontender on exam - LFTS normal - general surgery consult as above avascular necrosis on CT ?chronic - no pain with palpation of the hip - general surgery consult as above proctitis on CT ?stercoral colitis - continue bowel regimen - GI consult DM - SSI - hold glipizide - diabetic diet HLD - continue home meds HTN - BP soft, hold home meds depression - continue home meds FTT - nutrition consult med rec pending full code VTE prophy: hepain Pt with acute metabolic encephalopathy secondary to acute osteomyelitis, requiring admission for at least 2 midnights stay for IV abx and specialist consultations. Quality Stroke Does the patient have a stroke diagnosis?: No VTE Prior VTE?: No VTE Risk Level:: Medical - moderate - high VTE Device Contraindication: Treatment Not Indicated VTE Drug Contraindication: N/A - Med Ordered
--- NOTE | 2025-09-30 01:49 | PC.NURSE ---
RN to bedside for medication administration, pt found/noted to be hypotensive x3 readings. Outreach made to MASON Justice regarding the pt's vitals and she came down to bedside for evaluation. Discussion with Emre and new orders for a 500ml LR bolus received
[2025-09-30 01:57] LABS: Glucose, Whole Blood 308 mg/dL (60-115)
[2025-09-30] MEDS: Lactated Ringers 500 ML 999 ML IV (01:59)
--- NOTE | 2025-09-30 01:59 | PC.NURSE ---
500ml LR bolus hung, unable to be scanned and/or manually entered/processed. RN to contact pharmacy and/or reorder medication appropriately. pt continues to rest comfortably. he was able to be repositioned, sit upright and sip on some ice water with ease and without s/s of swallowing difficulties
[2025-09-30] MEDS: Albumin Human 25 % 100 ML 133.33 ML IV (03:14)
[2025-09-30 03:27] LABS: Anion Gap 9 (12-20); Blood Urea Nitrogen 32 mg/dL (9-16); Calcium 7.1 mg/dL (8.4-10.2); Carbon Dioxide 27 mmol/L (22-29); Chloride 116 mmol/L (96-108); Creatinine Clr Calc Pharmacy 92.3; Estimated Glomerular Filt Rate > 60; Potassium 3.8 mmol/L (3.3-5.1); Sodium 148 mmol/L (135-145)
[2025-09-30] MEDS: Albumin Human 25 % 100 ML IV (04:07)
[2025-09-30 04:35] LABS: MANUAL DIFF FLAG NO
[2025-09-30 05:03] LABS: Hematocrit 29.2 % (42.0-52.0); Hemoglobin 8.8 g/dl (14.0-18.0); Imm Gran Abs Auto 0.06 X10*3/uL (0.00-0.03); Imm Gran Pct Auto 1.1 % (0.0-0.4); Lymphocytes Absolute Auto 1.4 X10*3/uL (1.2-4.9); Mean Corpuscular HGB Conc 30.1 g/dl (31.0-36.0); Mean Corpuscular Hemoglobin 27.2 pg (27.0-33.0); Mean Corpuscular Volume 90.1 fL (80.0-98.0); NRBC Abs Auto 0.000 X10*3/uL (0.0-0.012); NRBC Pct Auto 0.0 /100WBC (0.0-0.2); Red Blood Count 3.24 X10*6/uL (4.60-5.80); White Blood Count 5.5 X10*3/uL (4.8-10.8)
[2025-09-30 05:04] LABS: Platelet Count 93 X10*3/uL (160-400)
--- NOTE | 2025-09-30 05:45 | PC.NURSE ---
Late entry for 514 RN received a tigertext message from the Hospitalist MASON regarding the pt's recollection request on his morning labs. RN was advised to hold off on Potassium administration until his labs were recollected as lab expressed concerns surrounding a compromised collection
[2025-09-30 06:04] LABS: Alanine Aminotransferase 7 U/L (0-40); Albumin Level 3.7 g/dL (3.5-5.0); Alkaline Phosphatase 33 U/L (39-117); Aspartate Amino Transferase 13 U/L (5-37); Creatinine Clr Calc Pharmacy 92.3; Estimated Glomerular Filt Rate > 60; Total Protein 5.2 g/dL (6.5-8.0)
[2025-09-30 06:14] LABS: Potassium 3.5 mmol/L (3.3-5.1)
[2025-09-30 06:16] LABS: Chloride 113 mmol/L (96-108)
[2025-09-30 06:17] LABS: Carbon Dioxide 25 mmol/L (22-29)
[2025-09-30 06:19] LABS: Anion Gap 11 (12-20)
[2025-09-30 06:20] LABS: Sodium 145 mmol/L (135-145)
[2025-09-30 06:21] LABS: Blood Urea Nitrogen 30 mg/dL (9-16)
[2025-09-30 06:22] LABS: Calcium 7.3 mg/dL (8.4-10.2)
--- NOTE | 2025-09-30 07:20 | P.PNIM_ITS ---
Subjective Subjective Date of Service: 09/30/25 Interval History: seen and examined admitted this morning for metabolic encephalopathy infected scral ulcer, OM, Physical Exam 2 Exam: Exam: see admission note Vital Signs: Vital Signs: Last Vital Signs Temp 98 F 09/30/25 06:11 Pulse 59 09/30/25 06:11 Resp 15 09/30/25 06:11 BP 103/67 09/30/25 06:11 Pulse Ox 96 09/30/25 06:11 O2 Del Method Room Air 09/30/25 06:11 BMI result Body Mass Index 22.9 Objective Data Active Medications Acetaminophen (Acetaminophen 325 Mg Tablet) 975 mg PO Q6H PRN PRN Reason: Pain, Mild 1-3,fever,headache Baclofen (Baclofen 10 Mg Tablet) 5 mg PO TID [facility]ATHAN Calcium Carbonate (Calcium Carbonate 750 Mg Tab.Chew) 750 mg PO Q4H PRN PRN Reason: Heartburn Dextrose (Dextrose 50 % 25 Gm/50 Ml Syringe) 25 gm IVPUSH Q15M PRN; Protocol PRN Reason: per Hypoglycemia Standing Ord. Glucose (Glucose Gel 15 Gm Gel..Gram.) 15 gm PO Q15M PRN; Protocol PRN Reason: per Hypoglycemia Standing Ord. Heparin Sodium (Porcine) (Heparin Sodium,Porcine 5,000 Unit/Ml Vial) 5,000 unit SUBCUT Q12H [facility] Last Admin: 09/30/25 03:14 Dose: 5,000 unit Documented By: QUETA Piperacillin Sod/Tazobactam (Sod 3.375 gm/ Sodium Chloride) 50 mls @ 100 mls/hr IV Q6H [facility] Last Infusion: 09/30/25 02:40 Dose: Infused Documented By: QUETA Dextrose (D5w) 1,000 mls @ 75 mls/hr IVCONT .[id number] [facility] Last Admin: 09/30/25 01:38 Dose: 75 mls/hr Documented By: QUETA Insulin Human Lispro (Insulin Lispro 100 Unit/Ml 3 Ml Vial) 0 unit SUBCUT QIDACHS [facility]; Protocol Magnesium Hydroxide (Milk Of Magnesia 30 Ml Oral.Susp) 30 ml PO DAILY PRN PRN Reason: Constipation Melatonin (Melatonin 3 Mg Tablet) 6 mg PO BEDTIME PRN PRN Reason: Insomnia Pharmacy Consult (Consult Rx Vancomycin Dosing) 1 each MISCELLANE DAILY PRN PRN Reason: Consult order Polyethylene Glycol (Polyethylene Glycol 3350 17 Gm Powd.Pack) 17 gm PO BID [facility] Senna (Sennosides 8.6 Mg Tablet) 8.6 mg PO BID [facility] Sodium Chloride (0.9 % Sodium Chloride Flush 3 Ml Syringe) 3 ml IVFLUSH QSHIFT [facility] Labs 10/01/25 03:51 10/01/25 03:51 Labs: Laboratory Results - last 24 hr 09/29/25 09/29/25 09/29/25 19:19 19:39 21:00 MCV 87.2 MCH 27.3 MCHC 31.3 RDW 15.7 Plt Count 169 MPV 12.8 H Immature Gran % (Auto) 0.8 H Neut % (Auto) 62.9 Lymph % (Auto) 23.3 [place] % (Auto) 12.7 H Eos % (Auto) 0.1 Baso % (Auto) 0.2 Lymph # (Auto) 2.0 [place] # (Auto) 1.1 Eos # (Auto) 0.0 Baso # (Auto) 0.0 Abs Immat Gran (auto) 0.07 H Absolute Neuts (auto) 5.3 Absolute Nucleated RBC 0.000 Nucleated RBC % (auto) 0.0 Hold Purple Top Anion Gap 12 Estim Creat Clear Calc 84.8 Estimated GFR > 60 POC Glucose Random Glucose 321 H Lactic Acid 1.1 Calcium 7.9 L Magnesium 2.4 Total Bilirubin 0.7 AST 12 ALT 6 Alkaline Phosphatase 39 Total Protein 5.7 L Albumin 3.4 L TSH 0.79 Urine Color Yellow Urine Appearance Clear Urine pH 5.5 Ur Specific [place] >= 1.030 H Urine Protein 100 (2+) H Urine Glucose (UA) >=1000 H Urine Ketones Trace Urine Blood Moderate (2+) H Urine Nitrite Negative Ur Leukocyte Esterase Negative Urine RBC 6-10 H Urine WBC 6-10 H Ur Squamous Epith Cells 0-2 Urine Bacteria None Seen Hyaline Casts 0-2 Influenza Type A (PCR) NEGATIVE Influenza Type B (PCR) NEGATIVE RSV RNA Qual (PCR) NEGATIVE SARS-CoV-2 RNA (RT-PCR) NEGATIVE 09/30/25 09/30/25 09/30/25 01:52 02:52 04:29 MCV 90.1 MCH 27.2 MCHC 30.1 L RDW 15.9 Plt Count 93 L D MPV 12.7 H Immature Gran % (Auto) 1.1 H Neut % (Auto) 64.5 Lymph % (Auto) 25.5 [place] % (Auto) 8.3 Eos % (Auto) 0.4 Baso % (Auto) 0.2 Lymph # (Auto) 1.4 [place] # (Auto) 0.5 Eos # (Auto) 0.0 Baso # (Auto) 0.0 Abs Immat Gran (auto) 0.06 H Absolute Neuts (auto) 3.6 Absolute Nucleated RBC 0.000 Nucleated RBC % (auto) 0.0 Hold Purple Top Anion Gap 9 L Cancelled Estim Creat Clear Calc 92.3 Cancelled Estimated GFR > 60 Cancelled POC Glucose 308 H Random Glucose 327 H Cancelled Lactic Acid Calcium 7.1 L D Cancelled Magnesium Total Bilirubin Cancelled AST Cancelled ALT Cancelled Alkaline Phosphatase Cancelled Total Protein Cancelled Albumin Cancelled TSH Urine Color Urine Appearance Urine pH Ur Specific [place] Urine Protein Urine Glucose (UA) Urine Ketones Urine Blood Urine Nitrite Ur Leukocyte Esterase Urine RBC Urine WBC Ur Squamous Epith Cells Urine Bacteria Hyaline Casts Influenza Type A (PCR) Influenza Type B (PCR) RSV RNA Qual (PCR) SARS-CoV-2 RNA (RT-PCR) 09/30/25 05:38 MCV MCH MCHC RDW Plt Count MPV Immature Gran % (Auto) Neut % (Auto) Lymph % (Auto) [place] % (Auto) Eos % (Auto) Baso % (Auto) Lymph # (Auto) [place] # (Auto) Eos # (Auto) Baso # (Auto) Abs Immat Gran (auto) Absolute Neuts (auto) Absolute Nucleated RBC Nucleated RBC % (auto) Hold Purple Top SEE NOTE Anion Gap 11 L Estim Creat Clear Calc 92.3 Estimated GFR > 60 POC Glucose Random Glucose 311 H Lactic Acid Calcium 7.3 L Magnesium Total Bilirubin 0.7 AST 13 ALT 7 Alkaline Phosphatase 33 L Total Protein 5.2 L Albumin 3.7 TSH Urine Color Urine Appearance Urine pH Ur Specific [place] Urine Protein Urine Glucose (UA) Urine Ketones Urine Blood Urine Nitrite Ur Leukocyte Esterase Urine RBC Urine WBC Ur Squamous Epith Cells Urine Bacteria Hyaline Casts Influenza Type A (PCR) Influenza Type B (PCR) RSV RNA Qual (PCR) SARS-CoV-2 RNA (RT-PCR) Assessment and Plan (1) Acute osteomyelitis of sacrum: Status: Acute (2) Metabolic encephalopathy: Status: Acute Plan patient is a 75-year-old male with a history of dementia, hyperlipidemia, hypertension, depression, diabetes with diabetic neuropathy, personality disorder, essential tremor, left BKA, right AKA, and failure to thrive, who presented to the ED via EMS from his nursing facility for decreased responsiveness. Work up has revealed infected sacral uler and possible osteomylitis. acute metabolic encephalopthy with underlying advanced dementia possibly d/t underlying infection and dehydration. 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
[2025-09-30 07:23] LABS: Glucose, Whole Blood 311 mg/dL (60-115)
--- NOTE | 2025-09-30 07:50 | P.CNGI_ITS ---
History of Present Illness Data of Consult Service Date: 09/30/25 Requesting physician: Priyanka Justice Primary Care Provider: Unknown Physician HPI Reason for consult: Proctitis on CT scan 75 YM with dementia, hx CVA with bilateral hand contractures, hyperlipidemia, hypertension, depression, diabetes with diabetic neuropathy, personality disorder, essential tremor, left BKA, right AKA, and failure to thrive, [place] [facility] [place] 09[place]25 via EMS from his nursing facility for decreased responsiveness. Patient is unable to provide a reliable HPI, history from ED provider as follows. On arrival to the ED patient was found to be febrile at 102.2, with SpO2 of 92% on room air. No associated hypotension or tachycardia. The patient arrived minimally responsive to verbal stimuli, able to state his name. Pt is more alert today and denies having any abdominal pain. Physical exam in the ED showed stage 4 sacral ulcer, also seen on BMP with hypernatremic hyperchloremia. 09/29/[address] SCAN SHOWED: 1. Sacral decubitus ulcer to the left of midline with sinus tract extending into the posterior aspect of the sacrum of the associated sacral osteomyelitis. 2. Age-indeterminate L1 and L2 superior endplate height loss. 3. Cholelithiasis with likely thickened sludge or bile. Pericholecystic fluid raises the concern for cholecystitis. Clinical correlation advised. Gallbladder ultrasound could further evaluate. 4. Prominent stool ball within the rectum with findings most characteristic of proctitis. 5. 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 Correlation with the timing of the patient's surgery is suggested as there is no solid bony ankylosis of the femoral neck fracture. Review of Systems 2 Review of Systems: Yes Unobtainable due to mental condition [facility] Social History Social History Unable to assess alcohol history related to: Unable to respond Smoked in Last 30 Days: No Use of substances other than those prescribed or required for medical reasons: No Advance Directives: No Advance Directives Information Provided: Yes Do you have a plan to hurt others: Vague Meds Allergies Allergy/AdvReac Type Severity Reaction Status Date / Time No Known Allergies Allergy Verified 09/29/25 19:03 Active Medications: Current Medications Acetaminophen (Acetaminophen 325 Mg Tablet) 975 mg PO Q6H PRN PRN Reason: Pain, Mild 1-3,fever,headache Baclofen (Baclofen 10 Mg Tablet) 5 mg PO TID [facility] Calcium Carbonate (Calcium Carbonate 750 Mg Tab.Chew) 750 mg PO Q4H PRN PRN Reason: Heartburn Dextrose (Dextrose 50 % 25 Gm/50 Ml Syringe) 25 gm IVPUSH Q15M PRN; Protocol PRN Reason: per Hypoglycemia Standing Ord. Glucose (Glucose Gel 15 Gm Gel..Gram.) 15 gm PO Q15M PRN; Protocol PRN Reason: per Hypoglycemia Standing Ord. Heparin Sodium (Porcine) (Heparin Sodium,Porcine 5,000 Unit/Ml Vial) 5,000 unit SUBCUT Q12H [facility] Last Admin: 09/30/25 03:14 Dose: 5,000 unit Piperacillin Sod/Tazobactam (Sod 3.375 gm/ Sodium Chloride) 50 mls @ 100 mls/hr IV Q6H [facility] Last Admin: 09/30/25 07:25 Dose: 100 mls/hr Dextrose (D5w) 1,000 mls @ 75 mls/hr IVCONT .[id number] [facility] Last Admin: 09/30/25 01:38 Dose: 75 mls/hr Vancomycin HCl 1,000 mg/ (Sodium Chloride) 270 mls @ 270 mls/hr IV Q12H [facility] Insulin Human Lispro (Insulin Lispro 100 Unit/Ml 3 Ml Vial) 0 unit SUBCUT QIDACHS [facility]; Protocol Last Admin: 09/30/25 07:25 Dose: 8 unit Magnesium Hydroxide (Milk Of Magnesia 30 Ml Oral.Susp) 30 ml PO DAILY PRN PRN Reason: Constipation Melatonin (Melatonin 3 Mg Tablet) 6 mg PO BEDTIME PRN PRN Reason: Insomnia Pharmacy Consult (Consult Rx Vancomycin Dosing) 1 each MISCELLANE DAILY PRN PRN Reason: Consult order Polyethylene Glycol (Polyethylene Glycol 3350 17 Gm Powd.Pack) 17 gm PO BID [facility] Senna (Sennosides 8.6 Mg Tablet) 8.6 mg PO BID [facility] Sodium Chloride (0.9 % Sodium Chloride Flush 3 Ml Syringe) 3 ml IVFLUSH QSHIFT [facility] Last Admin: 09/30/25 07:31 Dose: Not Given Home Medications ?Medication ?Instructions ?Recorded ?Confirmed ?Last Taken ?Type acetaminophen 325 mg tablet 650 mg PO BEDTIME 09/30/25 09/30/25 Unknown History acetaminophen 325 mg tablet 650 mg PO Q8H PRN arthriti s pain 09/30/25 09/30/25 Unknown History acetaminophen 650 mg rectal 650 mg AL Q6H PRN discomfo rt/temp 09/30/25 09/30/25 Unknown History suppository >101 ascorbic acid (vitamin C) 500 mg 500 mg PO DAILY 09/3009/30/25 Unknown History tablet aspirin 81 mg chewable tablet 81 mg PO DAILY 09/30/25 09/30/25 Unknown History atorvastatin 20 mg tablet 20 mg PO BEDTIME 09/30/25 Unknown History baclofen 10 mg tablet 5 mg PO TID 09/30/25 5 Unknown History bisacodyl 10 mg rectal suppository 10 mg AL DAILY PRN Constipation 09/30/25 09/30/25 Unknown History docusate sodium 100 mg capsule 100 mg PO BID 09/30/25 09/30/25 Unknown History epinephrine 0.3 mg/0.3 mL 0.3 mg IM Q5M PRN Anaphylaxi s 09/30/25 09/30/25 Unknown History injection, auto-injector fluoxetine 10 mg capsule 10 mg PO DAILY 09/30/2508/16 Unknown History gabapentin 400 mg capsule 400 mg PO TID 09/30/2509/30 Unknown History glipizide 5 mg tablet 5 mg PO DAILY 09/30/2509/30 Unknown History glucagon HCl 1 mg solution for 1 mg subcut Q15M PRN bs < 70 09/30/25 09/30/25 Unknown History injection (Glucagon (HCl) Emergency Kit) insulin aspart U-100 100 unit/mL 1 sliding scale dose subcut 09/30/25 09/30/25 Unknown History (3 mL) subcutaneous pen USEASDIRECTD lactulose 10 gram/15 mL oral 20 g PO DAILY PRN Constip ation 09/30/25 09/30/25 Unknown History solution loperamide 2 mg capsule 2 mg PO Q4H PRN Diarrhea 08/1609/30/25 Unknown History magnesium hydroxide 400 mg/5 mL 30 ml PO DAILY PRN Con stipation 09/30/25 09/30/25 Unknown History oral suspension (Milk of Magnesia) magnesium oxide 400 mg PO DAILY 09/30/2508/16 Unknown History multivitamin 1 tab PO DAILY 09/30/2508/16 Unknown History naloxone 0.4 mg/mL injection 0.4 mg IM Q3M PRN Opioid Overdose 09/30/25 09/30/25 Unknown History syringe naloxone 4 mg/actuation nasal spray 4 mg intranasal Q3 M PRN Opioid 09/30/25 09/30/25 Unknown History Overdose ondansetron 4 mg disintegrating 4 mg PO Q8H PRN Nausea And Vomiting 09/30/25 09/30/25 Unknown History tablet polyethylene glycol 3350 17 17 g PO BID 09/30/2509/30 Unknown History gram/dose oral powder (Miralax) risperidone 0.25 mg tablet 0.25 mg PO BEDTIME 09/30/25 09/30/25 Unknown History sennosides 8.6 mg tablet (senna) 8.6 mg PO BID 5 09/30/25 Unknown History sodium phosphates 19 gram-7 118 ml AL DAILY PRN Consti pation 09/30/25 09/30/25 Unknown History gram/118 mL enema (Fleet Enema) Physical Exam 2 Vital Signs: Vital Signs: Last Vital Signs Temp 98 F 09/30/25 06:11 Pulse 59 09/30/25 06:11 Resp 15 09/30/25 06:11 BP 103/67 09/30/25 06:11 Pulse Ox 96 09/30/25 06:11 O2 Del Method Room Air 09/30/25 06:11 BMI result Body Mass Index 22.9 Const: Other: Awake, alert, no acute distress, answers questions slowly, unkempt appearance Eyes: Other: Sclera nonicteric Resp: Other: Breathing comfortably on room air, no respiratory distress GI: Other: Soft, nondistended, nontender, no rebound, guarding or rigidity, negative Dowell sign. No tympany to percussion. Palpation (GI): Soft to palpation and nontender Auscultation: normal bowel sounds Back/Spine/Pelvis: Other: Unable to adequately visualize sacral area. We will coordinate with wound care nurse examined tomorrow. Skin: Other: Warm and dry Extrem: Other: Left BKA and right AKA Results Labs 09/30/25 04:29 09/30/25 05:38 Labs: Short CBC 09/29/25 09/30/25 Range/Units 19:19 04:29 WBC 8.5 5.5 (4.8-10.8) X10*3/uL Hgb 13.0 L 8.8 L D (14.0-18.0) g/dl Hct 41.5 L 29.2 L D (42.0-52.0) % Plt Count 169 93 L D (160-400) X10*3/uL BMP 09/29/25 09/30/25 09/30/25 19:19 02:52 04:29 Sodium 150 H 148 H Cancelled Potassium 3.7 3.8 Cancelled Chloride 117 H 116 H Cancelled Carbon Dioxide 25 27 Cancelled BUN 37 H 32 H Cancelled Creatinine 0.62 0.57 Cancelled Calcium 7.9 L 7.1 L D Cancelled 09/30/25 05:38 Sodium 145 Potassium 3.5 Chloride 113 H Carbon Dioxide 25 BUN 30 H Creatinine 0.57 Calcium 7.3 L Liver Function 09/29/25 09/30/25 09/30/25 Range/Units 19:19 04:29 05:38 Total Bilirubin 0.7 Cancelled 0.7 (0.0-1.0) mg/dL AST 12 Cancelled 13 (5-37) U/L ALT 6 Cancelled 7 (0-40) U/L Alkaline Phosphatase 39 Cancelled 33 L (39-117) U/L Albumin 3.4 L Cancelled 3.7 (3.5-5.0) g/dL Urine 09/29/25 Range/Units 19:39 Urine Color Yellow Urine Appearance Clear Urine pH 5.5 (5.0-9.0) Ur Specific [place] >= 1.030 H (1.005-1.025) Urine Protein 100 (2+) H (Neg-Trace) mg/dL Urine Glucose (UA) >=1000 H (Negative) mg/dL Assessment and Plan (1) Stercoral colitis: Status: Acute (2) Abnormal CT of the abdomen: Status: Acute Plan 75 YM with dementia, hx CVA with bilateral hand contractures, hyperlipidemia, hypertension, depression, diabetes with diabetic neuropathy, personality disorder, essential tremor, left BKA, right AKA, and failure to thrive, admitted [place] [facility] [place] for decreased responsiveness and found to be febrile at 102.2 with a stage [address] scan showed prominent stool ball within the rectum with findings most characteristic of proctitis. Proctitis is likely due to hard stool in the rectum causing inflammation. RECOMMENDATIONS: 1. Agree with placing pt on a regular bowel program with Senna and Miralax twice daily and monitor stool output 2. Fleet enema daily to evacuate the stool ball. If no results, pt will need digital dis-impaction. 3. Conservative management is advised given dementia and multiple comorbidities. Procedures Date of Service Date of Service: 09/30/25
--- NOTE | 2025-09-30 08:00 | MHC.EDTECH ---
patient was incontinent of urine and stool the clean and changed patients assist total patient place purewick on patient nurse aware
--- NOTE | 2025-09-30 08:20 | PHA.MEDREC ---
Pharmacy Consult ? Medication Reconciliation Pharmacy has completed the medication reconciliation.Med rec complete, utilized list from [facility]
--- NOTE | 2025-09-30 09:10 | PC.NURSE ---
Addendum entered by Joel Rodriguez RN 09/30/25 09:17: Patient is running D5W @ 75 ml/hr and not LR @ 100 ml/hr Male purewick in place for incontinence episodes Original Note: This RN assumed care of patient @ 0700 Assisted patient with breakfast as tremors made it hard for patient to eat Patient incontinent of urine and stool Patient cleaned up, stage 4 on coccyx area cleansed and dressed with foam dressing Recal probe placed as patient was admitted with 103 temp, current temp 98.5 IV 20G right hand came out as patient is tremulous, bleeding ceased, cleansed area covered with dressing Patient has LR running @ 100 in left forearm
--- NOTE | 2025-09-30 09:13 | PM.EVENT ---
Event Note Date of Service: 09/30/25 Event Note: Chart reviewed. 75 yr old man with hypernatremia due to free water deficit Keep I >O with hypotonic fluids Renal function at baseline Full consult to follow Time Spent With Patient Time: Total time managing care of this patient today ____ minutes.
--- NOTE | 2025-09-30 09:53 | P.CONGS_ITS ---
History of Present Illness Consult details Consult date: 09/30/25 Requesting physician: Laci Schultz Narrative: 75-year-old male patient with multiple medical problems presenting from a nursing facility due to decreased responsiveness. 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 His past history is significant for dementia, diabetes mellitus, s/p right AKA and left BKA, previous CVA with bilateral hand contractures, essential tremor, hyperlipidemia, hypertension, depression, and failure to thrive. The patient mainly complains of right hip pain. Workup in the emergency department revealed a WBC of 8.5, glucose of 327, and normal LFTs. CT abdomen and pelvis revealed small calcified gallstones with bile thickening or sludge and a small amount of pericholecystic fluid, a 6 cm stool ball within the rectum with mild wall thickening, surgical screws in the right proximal femur fixating a right femoral neck fracture. A persistent fracture line is evident with mild impaction. There are mixed areas of sclerosis and lucency seen within the right femoral head suggesting avascular necrosis with findings concerning for impending cortical collapse. A left sacral decubitus ulcer with sinus extending into the posterior aspect of the sacrum is noted with the associated osteomyelitis of sacrum. Abdominal ultrasound reveals a contracted gallbladder with cholelithiasis but no gallbladder wall thickening. Common bile duct is normal at 3 mm in diameter. Patient states that he does not ambulate and does not have a prosthesis. He mainly stays in bed. Review of Systems 2 Review of Systems: Yes Unobtainable due to mental condition PMFSH Social History Social History Unable to assess alcohol history related to: Unable to respond Smoked in Last 30 Days: No Use of substances other than those prescribed or required for medical reasons: No Advance Directives: No Advance Directives Information Provided: Yes Do you have a plan to hurt others: Vague Meds Allergies Allergy/AdvReac Type Severity Reaction Status Date / Time No Known Allergies Allergy Verified 09/29/25 19:03 Active Medications: Current Medications Acetaminophen (Acetaminophen 325 Mg Tablet) 975 mg PO Q6H PRN PRN Reason: Pain, Mild 1-3,fever,headache Baclofen (Baclofen 10 Mg Tablet) 5 mg PO TID [facility] Last Admin: 09/30/25 08:24 Dose: 5 mg Calcium Carbonate (Calcium Carbonate 750 Mg Tab.Chew) 750 mg PO Q4H PRN PRN Reason: Heartburn Dextrose (Dextrose 50 % 25 Gm/50 Ml Syringe) 25 gm IVPUSH Q15M PRN; Protocol PRN Reason: per Hypoglycemia Standing Ord. Glucose (Glucose Gel 15 Gm Gel..Gram.) 15 gm PO Q15M PRN; Protocol PRN Reason: per Hypoglycemia Standing Ord. Heparin Sodium (Porcine) (Heparin Sodium,Porcine 5,000 Unit/Ml Vial) 5,000 unit SUBCUT Q12H [facility] Last Admin: 09/30/25 03:14 Dose: 5,000 unit Piperacillin Sod/Tazobactam (Sod 3.375 gm/ Sodium Chloride) 50 mls @ 100 mls/hr IV Q6H [facility] Last Infusion: 09/30/25 08:01 Dose: Infused Dextrose (D5w) 1,000 mls @ 75 mls/hr IVCONT .[id number] [facility] Last Admin: 09/30/25 01:38 Dose: 75 mls/hr Vancomycin HCl 1,000 mg/ (Sodium Chloride) 270 mls @ 270 mls/hr IV Q12H [facility] Insulin Human Lispro (Insulin Lispro 100 Unit/Ml 3 Ml Vial) 0 unit SUBCUT QIDACHS [facility]; Protocol Last Admin: 09/30/25 07:25 Dose: 8 unit Magnesium Hydroxide (Milk Of Magnesia 30 Ml Oral.Susp) 30 ml PO DAILY PRN PRN Reason: Constipation Melatonin (Melatonin 3 Mg Tablet) 6 mg PO BEDTIME PRN PRN Reason: Insomnia Pharmacy Consult (Consult Rx Vancomycin Dosing) 1 each MISCELLANE DAILY PRN PRN Reason: Consult order Polyethylene Glycol (Polyethylene Glycol 3350 17 Gm Powd.Pack) 17 gm PO BID [facility] Last Admin: 09/30/25 08:25 Dose: 17 gm Senna (Sennosides 8.6 Mg Tablet) 8.6 mg PO BID [facility] Last Admin: 09/30/25 08:25 Dose: 8.6 mg Sodium Chloride (0.9 % Sodium Chloride Flush 3 Ml Syringe) 3 ml IVFLUSH QSHIFT [facility] Last Admin: 09/30/25 07:31 Dose: Not Given Home Medications ?Medication ?Instructions ?Recorded ?Confirmed ?Last Taken ?Type acetaminophen 325 mg tablet 650 mg PO BEDTIME 09/30/25 09/30/25 Unknown History acetaminophen 325 mg tablet 650 mg PO Q8H PRN arthriti s pain 09/30/25 09/30/25 Unknown History acetaminophen 650 mg rectal 650 mg AK Q6H PRN discomfo rt/temp 09/30/25 09/30/25 Unknown History suppository >101 ascorbic acid (vitamin C) 500 mg 500 mg PO DAILY 09/3009/30/25 Unknown History tablet aspirin 81 mg chewable tablet 81 mg PO DAILY 09/30/25 09/30/25 Unknown History atorvastatin 20 mg tablet 20 mg PO BEDTIME 09/30/25 Unknown History baclofen 10 mg tablet 5 mg PO TID 09/30/25 5 Unknown History bisacodyl 10 mg rectal suppository 10 mg AK DAILY PRN Constipation 09/30/25 09/30/25 Unknown History docusate sodium 100 mg capsule 100 mg PO BID 09/30/25 09/30/25 Unknown History epinephrine 0.3 mg/0.3 mL 0.3 mg IM Q5M PRN Anaphylaxi s 09/30/25 09/30/25 Unknown History injection, auto-injector fluoxetine 10 mg capsule 10 mg PO DAILY 09/30/2508/16 Unknown History gabapentin 400 mg capsule 400 mg PO TID 09/30/2509/30 Unknown History glipizide 5 mg tablet 5 mg PO DAILY 09/30/2509/30 Unknown History glucagon HCl 1 mg solution for 1 mg subcut Q15M PRN bs < 70 09/30/25 09/30/25 Unknown History injection (Glucagon (HCl) Emergency Kit) insulin aspart U-100 100 unit/mL 1 sliding scale dose subcut 09/30/25 09/30/25 Unknown History (3 mL) subcutaneous pen USEASDIRECTD lactulose 10 gram/15 mL oral 20 g PO DAILY PRN Constip ation 09/30/25 09/30/25 Unknown History solution loperamide 2 mg capsule 2 mg PO Q4H PRN Diarrhea 08/1609/30/25 Unknown History magnesium hydroxide 400 mg/5 mL 30 ml PO DAILY PRN Con stipation 09/30/25 09/30/25 Unknown History oral suspension (Milk of Magnesia) magnesium oxide 400 mg PO DAILY 09/30/2508/16 Unknown History multivitamin 1 tab PO DAILY 09/30/25 11/0 08/16 Unknown History naloxone 0.4 mg/mL injection 0.4 mg IM Q3M PRN Opioid Overdose 09/30/25 09/30/25 Unknown History syringe naloxone 4 mg/actuation nasal spray 4 mg intranasal Q3 M PRN Opioid 09/30/25 09/30/25 Unknown History Overdose ondansetron 4 mg disintegrating 4 mg PO Q8H PRN Nausea And Vomiting 09/30/25 09/30/25 Unknown History tablet polyethylene glycol 3350 17 17 g PO BID 09/30/2509/30 Unknown History gram/dose oral powder (Miralax) risperidone 0.25 mg tablet 0.25 mg PO BEDTIME 09/30/25 09/30/25 Unknown History sennosides 8.6 mg tablet (senna) 8.6 mg PO BID 5 09/30/25 Unknown History sodium phosphates 19 gram-7 118 ml AK DAILY PRN Consti pation 09/30/25 09/30/25 Unknown History gram/118 mL enema (Fleet Enema) Physical Exam 2 Vital Signs: Vital Signs: Last Vital Signs Temp 98 F 09/30/25 06:11 Pulse 59 09/30/25 06:11 Resp 15 09/30/25 06:11 BP 103/67 09/30/25 06:11 Pulse Ox 96 09/30/25 06:11 O2 Del Method Room Air 09/30/25 06:11 BMI result Body Mass Index 22.9 Const: Other: Awake, alert, no acute distress, answers questions slowly, unkempt appearance Eyes: Other: Sclera nonicteric Resp: Other: Breathing comfortably on room air, no respiratory distress GI: Other: Soft, nondistended, nontender, no rebound, guarding or rigidity, negative Dowell sign. No tympany to percussion. Back/Spine/Pelvis: Other: Unable to adequately visualize sacral area. We will coordinate with wound care nurse examined tomorrow. Skin: Other: Warm and dry Extrem: Other: Left BKA with intact stump without ulceration appreciated. Right AKA well- healed. Right hip minimally tender to palpation. No erythema noted in overlying skin. Results Labs 09/30/25 04:29 09/30/25 05:38 Labs: Abnormal lab results 09/29/25 09/29/25 09/30/25 Range/Units 19:19 19:39 01:52 RBC (4.60-5.80) X10*6/uL Hgb 13.0 L (14.0-18.0) g/dl Hct 41.5 L (42.0-52.0) % MCHC (31.0-36.0) g/dl Plt Count (160-400) X10*3/uL MPV 12.8 H (9.4-12.4) fL Immature Gran % (Auto) 0.8 H (0.0-0.4) % Cecil % (Auto) 12.7 H (2-11) % Abs Immat Gran (auto) 0.07 H (0.00-0.03) X10*3/uL Sodium 150 H (135-145) mmol/L Chloride 117 H (96-108) mmol/L Anion Gap (12-20) BUN 37 H (9-16) mg/dL POC Glucose 308 H (60-115) mg/dL Random Glucose 321 H (60-115) mg/dL Calcium 7.9 L (8.4-10.2) mg/dL Alkaline Phosphatase (39-117) U/L Total Protein 5.7 L (6.5-8.0) g/dL Albumin 3.4 L (3.5-5.0) g/dL Ur Specific [place] >= 1.030 H (1.005-1.025) Urine Protein 100 (2+) H (Neg-Trace) mg/dL Urine Glucose (UA) >=1000 H (Negative) mg/dL Urine Blood Moderate (2+) H (Negative) Urine RBC 6-10 H (0-2) /HPF Urine WBC 6-10 H (0-5) /HPF 09/30/25 09/30/25 09/30/25 Range/Units 02:52 04:29 05:38 RBC 3.24 L D (4.60-5.80) X10*6/uL Hgb 8.8 L D (14.0-18.0) g/dl Hct 29.2 L D (42.0-52.0) % MCHC 30.1 L (31.0-36.0) g/dl Plt Count 93 L D (160-400) X10*3/uL MPV 12.7 H (9.4-12.4) fL Immature Gran % (Auto) 1.1 H (0.0-0.4) % Cecil % (Auto) (2-11) % Abs Immat Gran (auto) 0.06 H (0.00-0.03) X10*3/uL Sodium 148 H (135-145) mmol/L Chloride 116 H 113 H (96-108) mmol/L Anion Gap 9 L 11 L (12-20) BUN 32 H 30 H (9-16) mg/dL POC Glucose (60-115) mg/dL Random Glucose 327 H 311 H (60-115) mg/dL Calcium 7.1 L D 7.3 L (8.4-10.2) mg/dL Alkaline Phosphatase 33 L (39-117) U/L Total Protein 5.2 L (6.5-8.0) g/dL Albumin (3.5-5.0) g/dL Ur Specific [place] (1.005-1.025) Urine Protein (Neg-Trace) mg/dL Urine Glucose (UA) (Negative) mg/dL Urine Blood (Negative) Urine RBC (0-2) /HPF Urine WBC (0-5) /HPF 09/30/25 Range/Units 07:20 RBC (4.60-5.80) X10*6/uL Hgb (14.0-18.0) g/dl Hct (42.0-52.0) % MCHC (31.0-36.0) g/dl Plt Count (160-400) X10*3/uL MPV (9.4-12.4) fL Immature Gran % (Auto) (0.0-0.4) % Cecil % (Auto) (2-11) % Abs Immat Gran (auto) (0.00-0.03) X10*3/uL Sodium (135-145) mmol/L Chloride (96-108) mmol/L Anion Gap (12-20) BUN (9-16) mg/dL POC Glucose 311 H (60-115) mg/dL Random Glucose (60-115) mg/dL Calcium (8.4-10.2) mg/dL Alkaline Phosphatase (39-117) U/L Total Protein (6.5-8.0) g/dL Albumin (3.5-5.0) g/dL Ur Specific [place] (1.005-1.025) Urine Protein (Neg-Trace) mg/dL Urine Glucose (UA) (Negative) mg/dL Urine Blood (Negative) Urine RBC (0-2) /HPF Urine WBC (0-5) /HPF Short CBC 09/29/25 09/30/25 Range/Units 19:19 04:29 WBC 8.5 5.5 (4.8-10.8) X10*3/uL Hgb 13.0 L 8.8 L D (14.0-18.0) g/dl Hct 41.5 L 29.2 L D (42.0-52.0) % Plt Count 169 93 L D (160-400) X10*3/uL BMP 09/29/25 09/30/25 09/30/25 19:19 02:52 04:29 Sodium 150 H 148 H Cancelled Potassium 3.7 3.8 Cancelled Chloride 117 H 116 H Cancelled Carbon Dioxide 25 27 Cancelled BUN 37 H 32 H Cancelled Creatinine 0.62 0.57 Cancelled Calcium 7.9 L 7.1 L D Cancelled 09/30/25 05:38 Sodium 145 Potassium 3.5 Chloride 113 H Carbon Dioxide 25 BUN 30 H Creatinine 0.57 Calcium 7.3 L Liver Function 09/29/25 09/30/25 09/30/25 Range/Units 19:19 04:29 05:38 Total Bilirubin 0.7 Cancelled 0.7 (0.0-1.0) mg/dL AST 12 Cancelled 13 (5-37) U/L ALT 6 Cancelled 7 (0-40) U/L Alkaline Phosphatase 39 Cancelled 33 L (39-117) U/L Albumin 3.4 L Cancelled 3.7 (3.5-5.0) g/dL Urine 09/29/25 Range/Units 19:39 Urine Color Yellow Urine Appearance Clear Urine pH 5.5 (5.0-9.0) Ur Specific [place] >= 1.030 H (1.005-1.025) Urine Protein 100 (2+) H (Neg-Trace) mg/dL Urine Glucose (UA) >=1000 H (Negative) mg/dL All other labs normal. Assessment and Plan (1) Acute osteomyelitis of sacrum: Status: Acute We will coordinate with wound care nurse to evaluate sacral wound and determined further management. (2) Cholelithiasis: Qualifiers: Cholelithiasis location: gallbladder Cholecystitis presence: without cholecystitis Biliary obstruction: without biliary obstruction Qualified Code(s): K80.20 - Calculus of gallbladder without cholecystitis without obstruction Status: Acute Patient with calcified gallstones noted on CT but a contracted gallbladder and normal common bile duct. Examination reveals a benign abdomen with no Dowell sign. No evidence of cholecystitis and no surgical intervention recommended. (3) Avascular necrosis of bone of right hip: Status: Acute CT abdomen and pelvis reviewed and above findings noted. The patient is nonambulatory following bilateral amputations. Doubt surgical intervention is required but would defer to Orthopedics for any further concerns. (4) Stercoral colitis: Status: Acute Patient does report regular bowel movements but probably would benefit from a bowel regime. Agree with continued MiraLax and Senokot. If no improvement could add SSE. Procedures Date of Service Date of Service: 09/30/25
--- NOTE | 2025-09-30 12:39 | PC.NURSE ---
Nurse to nurse report given to Trinh RN in Overflow
--- NOTE | 2025-09-30 13:18 | MHC.EDTECH ---
patient repositioned on his left side
[2025-09-30 13:38] LABS: Glucose, Whole Blood 277 mg/dL (60-115)
--- NOTE | 2025-09-30 14:07 | MHC.CM.PN ---
CM not able to complete assessment, pt. asleep, no contact info in chart.
[2025-09-30 16:02] LABS: Glucose, Whole Blood 230 mg/dL (60-115)
[2025-09-30 18:04] LABS: Glucose, Whole Blood 190 mg/dL (60-115)
[2025-09-30 19:56] LABS: Glucose, Whole Blood 222 mg/dL (60-115)
--- NOTE | 2025-09-30 20:14 | PC.NURSE ---
pt arrived to unit and settled in bed. he is drowsy and prefers his eyes shut but is easily rousable. Pt incontinent of large BM and urine. male purewick in place with a further 400cc output. Lungs dim, abdomen soft, nontender, +BS x4. dsg c/d/i to sacral area. Pt offloaded from site. airloss mattress device requested but not yet arrived. Pt arrived after lunch and blood sugar/insulin late, MD Schultz aware with plan to recheck cover at least 2 hours later. Pt approx 1745 c/o not feeling well but nonspecific he was noted to be cool and moist, Vitals taken and Dr. Schultz aware and asked to come to bedside to eval. Plan after bedside visit to continue to monitor... oncoming RN aware and pt evaluation with bedside report unchanged.
[2025-09-30 21:53] LABS: MANUAL DIFF FLAG NO
[2025-09-30 21:59] LABS: Hematocrit 33.7 % (42.0-52.0); Hemoglobin 10.5 g/dl (14.0-18.0); Imm Gran Abs Auto 0.04 X10*3/uL (0.00-0.03); Imm Gran Pct Auto 0.8 % (0.0-0.4); Lymphocytes Absolute Auto 1.1 X10*3/uL (1.2-4.9); Mean Corpuscular HGB Conc 31.2 g/dl (31.0-36.0); Mean Corpuscular Hemoglobin 26.9 pg (27.0-33.0); Mean Corpuscular Volume 86.2 fL (80.0-98.0); NRBC Abs Auto 0.000 X10*3/uL (0.0-0.012); NRBC Pct Auto 0.0 /100WBC (0.0-0.2); Platelet Count 105 X10*3/uL (160-400); Red Blood Count 3.91 X10*6/uL (4.60-5.80); White Blood Count 4.7 X10*3/uL (4.8-10.8)
[2025-09-30 22:31] LABS: Calcium 7.9 mg/dL (8.4-10.2); Chloride 114 mmol/L (96-108); Potassium 2.8 mmol/L (3.3-5.1); Sodium 144 mmol/L (135-145)
[2025-10-01] VITALS (17 sets, daily range): BP systolic 70–137; BP diastolic 31–64; PULSE 49–69; RESP 12–20; TEMP 36.3–37.6; O2SAT 92–100; BMI 24.7
--- NOTE | 2025-10-01 | ECG_ITS ---
Test Reason : irregular HR Blood Pressure : */* mmHG Vent. Rate : 58 BPM Atrial Rate : 58 BPM P-R Int : 142 ms QRS Dur : 82 ms QT Int : 458 ms P-R-T Axes : 65 -12 24 degrees QTcB Int : 449 ms Sinus bradycardia Low voltage QRS Borderline ECG When compared to the previous EKG of No significant changes seen Referred By: Priyanka Justice Electronically Signed By: SIMI GARCÍA MD
--- NOTE | 2025-10-01 | ECG_ITS ---
Test Reason : IRREGULAR HR Blood Pressure : */* mmHG Vent. Rate : 59 BPM Atrial Rate : 59 BPM P-R Int : 122 ms QRS Dur : 80 ms QT Int : 456 ms P-R-T Axes : 11 -19 11 degrees QTcB Int : 451 ms Sinus bradycardia with Premature supraventricular complexes Otherwise normal ECG When compared with ECG of 01-Oct-2025 01:51, Premature supraventricular complexes are now Present Referred By: Priyanka Justice Electronically Signed By: SIMI GARCÍA MD
[2025-10-01] MEDS: Potassium Chloride Packet 20 MEQ PACKET 40 MEQ PO (00:39)
[2025-10-01] MEDS: 0.9 % Sodium Chloride Flush 3 ML SYRINGE IVFLUSH ×3 (01:01→16:30)
[2025-10-01 01:53] LABS: Glucose, Whole Blood 157 mg/dL (60-115)
--- NOTE | 2025-10-01 02:16 | PM.EVENT ---
Event Note Date of Service: 10/01/25 Event Note: rapid response called pt, hypotensive 70s systolic manually. he is alert and oriented. no chest pain or SOB. no dizziness. cool and clammy, was evaluated earlier and was presented the same except now hypotensive. recent labs with hypokalemia, repleated. transfer back to [facility] LR 500ml bolus and start midodrine 2.5mg TID, one dose now. pt seen and A/P discussed with Dr Andrea. Time Spent With Patient Time: Total time managing care of this patient today ____ minutes.
--- NOTE | 2025-10-01 02:41 | HE.NUR.EV ---
Status Change: Low BP 70/35. Unable to obtain HR due to pt tremors. Immediate Actions Taken: HOOP MACHINE OPERATOR called. MD, [employer], Operating System Programmer, ED charge master analyst, CCT tech to bedside. Leander Andrea MD ordered bolus 500ml LR, EKG, midodrine. EKG obtained, showing sinus bradycardia, was sent to MD Andrea. Fluid bolus given, BP improved to 92/40. Pt was transported to Main ED for cardiac monitoring per MD order.
[2025-10-01] MEDS: Lactated Ringers 500 ML 999 ML IV (03:17)
[2025-10-01 03:56] LABS: MANUAL DIFF FLAG NO
[2025-10-01 03:58] LABS: Hematocrit 33.6 % (42.0-52.0); Hemoglobin 10.5 g/dl (14.0-18.0); Imm Gran Abs Auto 0.03 X10*3/uL (0.00-0.03); Imm Gran Pct Auto 0.7 % (0.0-0.4); Lymphocytes Absolute Auto 1.1 X10*3/uL (1.2-4.9); Mean Corpuscular HGB Conc 31.3 g/dl (31.0-36.0); Mean Corpuscular Hemoglobin 27.1 pg (27.0-33.0); Mean Corpuscular Volume 86.6 fL (80.0-98.0); NRBC Abs Auto 0.000 X10*3/uL (0.0-0.012); NRBC Pct Auto 0.0 /100WBC (0.0-0.2); Platelet Count 102 X10*3/uL (160-400); Red Blood Count 3.88 X10*6/uL (4.60-5.80); White Blood Count 4.5 X10*3/uL (4.8-10.8)
[2025-10-01 04:13] LABS: Alanine Aminotransferase < 6 U/L (0-40); Albumin Level 2.8 g/dL (3.5-5.0); Alkaline Phosphatase 41 U/L (39-117); Anion Gap 9 (12-20); Aspartate Amino Transferase 13 U/L (5-37); Blood Urea Nitrogen 25 mg/dL (9-16); Calcium 7.7 mg/dL (8.4-10.2); Carbon Dioxide 25 mmol/L (22-29); Chloride 114 mmol/L (96-108); Creatinine Clr Calc Pharmacy 97.4; Estimated Glomerular Filt Rate > 60; Potassium 3.7 mmol/L (3.3-5.1); Sodium 144 mmol/L (135-145); Total Protein 4.4 g/dL (6.5-8.0)
--- NOTE | 2025-10-01 06:23 | PC.NURSE ---
Assumed care of patient at 1900. Patient at beginning?of shift was drowsy but arousable to voice. Vitals taken BP 95/42, HR 54, o2 96% on room air, respiratory?rate 16 and temp 99.6. Blood sugar taken for 222. MD notified and came to my bedside.? Labs ordered and obtained. Potassium is 2.8. MD notified, meds ordered and administered. Vitals signs rechecked at 21:26 BP 93/41, HR 54, RR 16, 94% on room air. Report given to oncoming nurse.?
[2025-10-01 07:10] LABS: Glucose, Whole Blood 227 mg/dL (60-115)
[2025-10-01] MEDS: Albumin Human 25 % 100 ML 133.33 ML IV ×2 (07:28→08:45)
--- NOTE | 2025-10-01 07:30 | PC.NURSE ---
pt alert to person only, fall precautions intact, [place] cath intact, rr equal/non labored-lungs clear, pt medicated with po meds 2 at a time with water, stool softeners held as pt has had bouts of diarrhea overnight- will notify provider. youth nutritional monitor intact pt sinus lazara/nsr on monitor, pt continues to be hypotensive, albumin started per order, pt currently eating breakfast, call short within reach, plan of care ongoing
--- NOTE | 2025-10-01 08:52 | PC.NURSE ---
patient alert to person/place, pt gets dyspnic with movement and o2 sats decreased to 82% no 4L nc, oxymask was placed by the CC at 5L, pt was titrated back down to NC. upon speaking with staff she again desatted to 83%, pt was placed on 4L nc and her O2 sat increased to 93% however patient continues to talk and move around in bed which decreased down to 89-90%. pt presently denying pain and discomfort, lungs had fine crackles in the bases, additional IV started to RT ac for a CT angeo. satellite project site monitor intact pt is sinus tach 130s on monitor, vitals will be documented, call short within reach, plan of care ongoing
--- NOTE | 2025-10-01 09:59 | PC.NURSE ---
patient moved to room 18
--- NOTE | 2025-10-01 11:03 | MHC.CM.PN ---
Patient was unable to participate in CM Initial Assessment and there are no contacts listed. 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 Per [facility], there is no HCP.
--- NOTE | 2025-10-01 11:32 | HO.PM.IMPN ---
Subjective Subjective Date of Service: 10/01/25 Interval History: Rapid response this morning d/t SBP in 70 and clamy, given IVF, albumin and midodrine, BP is much better and he's more alert albeit with basline confusion blood cultures, negative except coag neg staph x 1 Physical Exam Vital Signs: Vital Signs: Last Vital Signs Temp 97.8 F 10/01/25 09:11 Pulse 50 10/01/25 10:41 Resp 18 10/01/25 10:41 BP 126/41 L 10/01/25 10:41 Pulse Ox 100 10/01/25 10:41 O2 Del Method Nasal Cannula 10/01/25 10:41 O2 Flow Rate 3 10/01/25 10:41 BMI result Body Mass Index 24.7 Const: Other: General: alert, oriented to self, o/w confused Resp: CTA bilateral CVS: S1,S2,RRR GI: +BS, NT, no distention Skin: sacral ulcer noted elesewhere Neuro: motor grossly intact Psych: appropriate affect Objective Data Active Medications Acetaminophen (Acetaminophen 325 Mg Tablet) 975 mg PO Q6H PRN PRN Reason: Pain, Mild 1-3,fever,headache Acetaminophen (Acetaminophen Supp 650 Mg Supp.Rect) 650 mg DC Q6H PRN PRN Reason: discomfort/temp >101 Ascorbic Acid (Ascorbic Acid 500 Mg Tablet) 500 mg PO DAILY [facility] Last Admin: 10/01/25 07:17 Dose: 500 mg Documented By: DENNISE Aspirin (Aspirin 81 Mg Tab.Chew) 81 mg PO DAILY [facility] Last Admin: 10/01/25 07:20 Dose: 81 mg Documented By: DENNISE Atorvastatin Calcium (Atorvastatin Calcium 20 Mg Tablet) 20 mg PO BEDTIME [facility] Last Admin: 09/30/25 21:35 Dose: 20 mg Documented By: BRI Baclofen (Baclofen 10 Mg Tablet) 5 mg PO TID [facility] Last Admin: 10/01/25 07:19 Dose: 5 mg Documented By: DENNISE Bisacodyl (Bisacodyl 10 Mg Supp.Rect) 10 mg DC DAILY PRN PRN Reason: Constipation Calcium Carbonate (Calcium Carbonate 750 Mg Tab.Chew) 750 mg PO Q4H PRN PRN Reason: Heartburn Dextrose (Dextrose 50 % 25 Gm/50 Ml Syringe) 25 gm IVPUSH Q15M PRN; Protocol PRN Reason: per Hypoglycemia Standing Ord. Docusate Sodium (Docusate Sodium 100 Mg Capsule) 100 mg PO BID [facility] Last Admin: 10/01/25 07:17 Dose: Not Given Documented By: DENNISE Non-Admin Reason: See Note Fluoxetine HCl (Fluoxetine Hcl 10 Mg Capsule) 10 mg PO DAILY [facility] Last Admin: 10/01/25 07:18 Dose: 10 mg Documented By: DENNISE Gabapentin (Gabapentin 400 Mg Capsule) 400 mg PO TID [facility] Last Admin: 10/01/25 07:20 Dose: 400 mg Documented By: DENNISE Glipizide (Glipizide 5 Mg Tablet) 5 mg PO DAILY [facility] Last Admin: 10/01/25 07:20 Dose: 5 mg Documented By: DENNISE Glucose (Glucose Gel 15 Gm Gel..Gram.) 15 gm PO Q15M PRN; Protocol PRN Reason: per Hypoglycemia Standing Ord. Heparin Sodium (Porcine) (Heparin Sodium,Porcine 5,000 Unit/Ml Vial) 5,000 unit SUBCUT Q12H [facility] Last Admin: 10/01/25 02:43 Dose: 5,000 unit Documented By: CHUCKIE Piperacillin Sod/Tazobactam (Sod 3.375 gm/ Sodium Chloride) 50 mls @ 100 mls/hr IV Q6H [facility] Last Infusion: 10/01/25 07:32 Dose: Infused Documented By: DENNISE Vancomycin HCl 1,000 mg/ (Sodium Chloride) 270 mls @ 270 mls/hr IV Q12H [facility] Last Infusion: 10/01/25 01:02 Dose: Infused Documented By: IRENA Insulin Human Lispro (Insulin Lispro 100 Unit/Ml 3 Ml Vial) 0 unit SUBCUT QIDACHS [facility]; Protocol Last Admin: 10/01/25 07:16 Dose: 4 unit Documented By: DENNISE Lactulose (Lactulose 20 Gm/30 Ml Solution) 20 gm PO DAILY PRN PRN Reason: Constipation Loperamide HCl (Loperamide Hcl 2 Mg Capsule) 2 mg PO Q4H PRN PRN Reason: Diarrhea Magnesium Hydroxide (Milk Of Magnesia 30 Ml Oral.Susp) 30 ml PO DAILY PRN PRN Reason: Constipation Magnesium Oxide (Magnesium Oxide 400 Mg Tablet) 400 mg PO DAILY [facility] Last Admin: 10/01/25 07:18 Dose: 400 mg Documented By: DENNISE Melatonin (Melatonin 3 Mg Tablet) 6 mg PO BEDTIME PRN PRN Reason: Insomnia Midodrine (Midodrine Hcl 5 Mg Tablet) 5 mg PO TID@0900,1300,1700 [facility] Last Admin: 10/01/25 07:17 Dose: 5 mg Documented By: DENNISE Multivitamins/Vitamin C (Multivitamin Tablet) 1 tab PO DAILY [facility] Last Admin: 10/01/25 07:17 Dose: 1 tab Documented By: DENNISE Naloxone HCl (Naloxone Hcl 0.4 Mg/Ml Vial) 0.4 mg IM Q3M PRN PRN Reason: Opioid Overdose Ondansetron HCl (Ondansetron Odt 4 Mg Tab.Rapdis) 4 mg TRANSLINGU Q8H PRN PRN Reason: Nausea and Vomiting Pharmacy Consult (Consult Rx Vancomycin Dosing) 1 each MISCELLANE DAILY PRN PRN Reason: Consult order Polyethylene Glycol (Polyethylene Glycol 3350 17 Gm Powd.Pack) 17 gm PO BID [facility] Last Admin: 10/01/25 07:21 Dose: Not Given Documented By: DENNISE Non-Admin Reason: See Note Risperidone (Risperidone 0.25 Mg Tablet) 0.25 mg PO BEDTIME [facility] Last Admin: 09/30/25 21:33 Dose: Not Given Documented By: BRI Non-Admin Reason: Physician Held Med Senna (Sennosides 8.6 Mg Tablet) 8.6 mg PO BID [facility] Last Admin: 10/01/25 07:19 Dose: Not Given Documented By: DENNISE Non-Admin Reason: See Note Sodium Biphosphate/Sodium Phosphate (Sodium Phosphate,[place]-Dibasic 133 Ml Enema) 118 ml DC DAILY PRN PRN Reason: Constipation Sodium Chloride (0.9 % Sodium Chloride Flush 3 Ml Syringe) 3 ml IVFLUSH QSHIFT [facility] Last Admin: 10/01/25 07:03 Dose: 3 ml Documented By: DENNISE Labs 10/01/25 03:51 10/01/25 03:51 Labs: Laboratory Results - last 24 hr 09/30/25 09/30/25 09/30/25 13:33 15:59 18:00 MCV MCH MCHC RDW Plt Count MPV Immature Gran % (Auto) Neut % (Auto) Lymph % (Auto) Travis % (Auto) Eos % (Auto) Baso % (Auto) Lymph # (Auto) Travis # (Auto) Eos # (Auto) Baso # (Auto) Abs Immat Gran (auto) Absolute Neuts (auto) Absolute Nucleated RBC Nucleated RBC % (auto) Anion Gap Estim Creat Clear Calc Estimated GFR POC Glucose 277 H 230 H 190 H Random Glucose Lactic Acid Calcium Total Bilirubin AST ALT Alkaline Phosphatase Troponin I High Sens Total Protein Albumin 09/30/25 09/30/25 09/30/25 19:52 21:24 21:47 MCV 86.2 MCH 26.9 L MCHC 31.2 RDW 15.3 Plt Count 105 L MPV 12.9 H Immature Gran % (Auto) 0.8 H Neut % (Auto) 67.4 Lymph % (Auto) 22.9 Travis % (Auto) 5.7 Eos % (Auto) 3.0 Baso % (Auto) 0.2 Lymph # (Auto) 1.1 L Travis # (Auto) 0.3 Eos # (Auto) 0.1 Baso # (Auto) 0.0 Abs Immat Gran (auto) 0.04 H Absolute Neuts (auto) 3.2 Absolute Nucleated RBC 0.000 Nucleated RBC % (auto) 0.0 Anion Gap 10 L Estim Creat Clear Calc 95.6 Estimated GFR > 60 POC Glucose 222 H 209 H Random Glucose 208 H Lactic Acid 2.0 Calcium 7.9 L D Total Bilirubin 0.5 AST 13 ALT 7 Alkaline Phosphatase 47 Troponin I High Sens < 2.7 Total Protein 4.8 L Albumin 3.2 L 09/30/25 10/01/25 10/01/25 22:33 01:49 03:51 MCV 86.6 MCH 27.1 MCHC 31.3 RDW 15.3 Plt Count 102 L MPV 13.0 H Immature Gran % (Auto) 0.7 H Neut % (Auto) 66.9 Lymph % (Auto) 23.6 Travis % (Auto) 6.2 Eos % (Auto) 2.4 Baso % (Auto) 0.2 Lymph # (Auto) 1.1 L Travis # (Auto) 0.3 Eos # (Auto) 0.1 Baso # (Auto) 0.0 Abs Immat Gran (auto) 0.03 Absolute Neuts (auto) 3.0 Absolute Nucleated RBC 0.000 Nucleated RBC % (auto) 0.0 Anion Gap 9 L Estim Creat Clear Calc 97.4 Estimated GFR > 60 POC Glucose 182 H 157 H Random Glucose 183 H Lactic Acid Calcium 7.7 L Total Bilirubin 0.6 AST 13 ALT < 6 Alkaline Phosphatase 41 Troponin I High Sens Total Protein 4.4 L Albumin 2.8 L 10/01/25 07:01 MCV MCH MCHC RDW Plt Count MPV Immature Gran % (Auto) Neut % (Auto) Lymph % (Auto) Travis % (Auto) Eos % (Auto) Baso % (Auto) Lymph # (Auto) Travis # (Auto) Eos # (Auto) Baso # (Auto) Abs Immat Gran (auto) Absolute Neuts (auto) Absolute Nucleated RBC Nucleated RBC % (auto) Anion Gap Estim Creat Clear Calc Estimated GFR POC Glucose 227 H Random Glucose Lactic Acid Calcium Total Bilirubin AST ALT Alkaline Phosphatase Troponin I High Sens Total Protein Albumin Microbiology Microbiology Results: Microbiology 09/29/25 19:17 Blood Culture - Preliminary Blood - Venous Coag negative Staphylococcus 09/29/25 19:19 Blood Culture - Preliminary Blood - Venous No growth after 24 hours. 09/29/25 19:39 Urine Culture - Preliminary Urine clean catch - Clean Catch Midstream Culture too young to evaluate. Assessment and Plan (1) Acute osteomyelitis of sacrum: Status: Acute (2) Metabolic encephalopathy: Status: Acute Plan patient is a 75-year-old male with a history of dementia, hyperlipidemia, hypertension, depression, diabetes with diabetic neuropathy, personality disorder, essential tremor, left BKA, right AKA, and failure to thrive, who presented to the ED via EMS from his nursing facility for decreased responsiveness. Work up has revealed infected sacral uler and possible osteomylitis. HypOtension, nomal lactic, no other SIRs criteri, improved with IVF, albumin and midodrine continuje IVF and monitor closely acute metabolic encephalopthy with underlying advanced dementia possibly d/t underlying infection and dehydration. treat underlying infection Sacral ulcer with Osteomylitis, sinus tract vancomycin and zosyn started 09/30 seen by surgery no indication for intervention wound nurse consult follow culture, so far negative exept coag neg staph x 1, likely contamination HypErnatremia d/t dehydration , resolved with IVF ?acute cholecystitis on CT nontender on exam LFTS normal general surgery saw, clinically doesn't appear to have cholecysitis, and US showed contracted galbladder and cholelithiasis avascular necrosis on CT ?chronic no pain with palpation of the hip general surgery consult as above proctitis on CT ?stercoral colitis/constipation continue bowel regimen surgery consult as above DM with complication of PVD s/p BKA, hyperglycemia SSI hold glipizide diabetic diet HLD continue home meds HTN BP soft, hold home meds depression continue home meds FTT - nutrition consult Quality Stroke Does the patient have a stroke diagnosis?: No VTE Prior VTE?: No VTE Risk Level:: Medical - moderate - high VTE Device Contraindication: Treatment Not Indicated VTE Drug Contraindication: N/A - Med Ordered
[2025-10-01 13:25] LABS: Glucose, Whole Blood 126 mg/dL (60-115)
--- NOTE | 2025-10-01 13:37 | HO.NURTONUR ---
[facility] where [facility] in only responsive to painful stimulus. presently he is awake/alert to person only, rr equal/non labored-lungs are clear- 3L NC, [place] cath placed, conservator artifacts NS/Sinus lazara 45-65- pt does have tremors while awake that makes it look as if his HR is in the 1402-150s but upon palpation and if you look at the O2 sat/pulse monitor it continues to be sinus lazara. He has been hypotensive but with the midodrine hes BP normalizes- it notably drops when its coming time for his next dose. he had 2 doses of albumin as well, denies pain/discomfort. Pt has a sacral ulcer/osteo- sacral patch was placed by nights. Last poc at lunch was 126- no insulin given. He has a 20G to RT AC. Pt has Rt AKA and LT BKA, fall precautions intact. He seems to need assistance eating meals but refuses help and states he can do it himself.
--- NOTE | 2025-10-01 13:51 | PC.NURSE ---
iv abx started per order
--- NOTE | 2025-10-01 15:22 | P.CNID_ITS ---
History of Present Illness Data of Consult Service Date: 10/01/25 Requesting physician: [facility] [place] Primary Care Provider: Unknown Physician HPI Reason for consult: fever of unknown origin,sacral OM He presents with temperature of 102 from nursing facility and unresponsiveness. He has dementia and hypertension. He also has left BKA and right AKA. He does have sacral decubiti and CT shows sinus tract into posterior sacrum and OM. There is no report of treatment for OM with IV antibiotics He has no allergies. Review of Systems 2 Review of Systems: Yes Unobtainable due to mental status [facility] Family History Family history: reviewed and not pertinent Social History Social History Household Members: Unknown / Unable to assess Housing: Unknown / Unable to assess Patient Tobacco Use Status: Never used Tobacco service: No Meds Allergies Allergy/AdvReac Type Severity Reaction Status Date / Time No Known Allergies Allergy Verified 09/29/25 19:03 Active Medications: Current Medications Acetaminophen (Acetaminophen 325 Mg Tablet) 975 mg PO Q6H PRN PRN Reason: Pain, Mild 1-3,fever,headache Acetaminophen (Acetaminophen Supp 650 Mg Supp.Rect) 650 mg MI Q6H PRN PRN Reason: discomfort/temp >101 Ascorbic Acid (Ascorbic Acid 500 Mg Tablet) 500 mg PO DAILY [facility] Last Admin: 10/01/25 07:17 Dose: 500 mg Aspirin (Aspirin 81 Mg Tab.Chew) 81 mg PO DAILY [facility] Last Admin: 10/01/25 07:20 Dose: 81 mg Atorvastatin Calcium (Atorvastatin Calcium 20 Mg Tablet) 20 mg PO BEDTIME [facility] Last Admin: 09/30/25 21:35 Dose: 20 mg Baclofen (Baclofen 10 Mg Tablet) 5 mg PO TID [facility] Last Admin: 10/01/25 07:19 Dose: 5 mg Bisacodyl (Bisacodyl 10 Mg Supp.Rect) 10 mg MI DAILY PRN PRN Reason: Constipation Calcium Carbonate (Calcium Carbonate 750 Mg Tab.Chew) 750 mg PO Q4H PRN PRN Reason: Heartburn Dextrose (Dextrose 50 % 25 Gm/50 Ml Syringe) 25 gm IVPUSH Q15M PRN; Protocol PRN Reason: per Hypoglycemia Standing Ord. Docusate Sodium (Docusate Sodium 100 Mg Capsule) 100 mg PO BID [facility] Last Admin: 10/01/25 07:17 Dose: Not Given Fluoxetine HCl (Fluoxetine Hcl 10 Mg Capsule) 10 mg PO DAILY [facility] Last Admin: 10/01/25 07:18 Dose: 10 mg Gabapentin (Gabapentin 400 Mg Capsule) 400 mg PO TID [facility] Last Admin: 10/01/25 07:20 Dose: 400 mg Glipizide (Glipizide 5 Mg Tablet) 5 mg PO DAILY [facility] Last Admin: 10/01/25 07:20 Dose: 5 mg Glucose (Glucose Gel 15 Gm Gel..Gram.) 15 gm PO Q15M PRN; Protocol PRN Reason: per Hypoglycemia Standing Ord. Heparin Sodium (Porcine) (Heparin Sodium,Porcine 5,000 Unit/Ml Vial) 5,000 unit SUBCUT Q12H [facility] Last Admin: 10/01/25 13:07 Dose: 5,000 unit Piperacillin Sod/Tazobactam (Sod 3.375 gm/ Sodium Chloride) 50 mls @ 100 mls/hr IV Q6H [facility] Last Infusion: 10/01/25 13:36 Dose: Infused Vancomycin HCl 1,000 mg/ (Sodium Chloride) 270 mls @ 270 mls/hr IV Q12H [facility] Last Admin: 10/01/25 13:47 Dose: 270 mls/hr Insulin Human Lispro (Insulin Lispro 100 Unit/Ml 3 Ml Vial) 0 unit SUBCUT QIDACHS [facility]; Protocol Last Admin: 10/01/25 13:12 Dose: Not Given Lactulose (Lactulose 20 Gm/30 Ml Solution) 20 gm PO DAILY PRN PRN Reason: Constipation Loperamide HCl (Loperamide Hcl 2 Mg Capsule) 2 mg PO Q4H PRN PRN Reason: Diarrhea Magnesium Hydroxide (Milk Of Magnesia 30 Ml Oral.Susp) 30 ml PO DAILY PRN PRN Reason: Constipation Magnesium Oxide (Magnesium Oxide 400 Mg Tablet) 400 mg PO DAILY [facility] Last Admin: 10/01/25 07:18 Dose: 400 mg Melatonin (Melatonin 3 Mg Tablet) 6 mg PO BEDTIME PRN PRN Reason: Insomnia Midodrine (Midodrine Hcl 5 Mg Tablet) 5 mg PO TID@0900,1300,1700 [facility] Last Admin: 10/01/25 13:07 Dose: 5 mg Multivitamins/Vitamin C (Multivitamin Tablet) 1 tab PO DAILY [facility] Last Admin: 10/01/25 07:17 Dose: 1 tab Naloxone HCl (Naloxone Hcl 0.4 Mg/Ml Vial) 0.4 mg IM Q3M PRN PRN Reason: Opioid Overdose Ondansetron HCl (Ondansetron Odt 4 Mg Tab.Rapdis) 4 mg TRANSLINGU Q8H PRN PRN Reason: Nausea and Vomiting Pharmacy Consult (Consult Rx Vancomycin Dosing) 1 each MISCELLANE DAILY PRN PRN Reason: Consult order Polyethylene Glycol (Polyethylene Glycol 3350 17 Gm Powd.Pack) 17 gm PO BID [facility] Last Admin: 10/01/25 07:21 Dose: Not Given Risperidone (Risperidone 0.25 Mg Tablet) 0.25 mg PO BEDTIME [facility] Last Admin: 09/30/25 21:33 Dose: Not Given Senna (Sennosides 8.6 Mg Tablet) 8.6 mg PO BID [facility] Last Admin: 10/01/25 07:19 Dose: Not Given Sodium Biphosphate/Sodium Phosphate (Sodium Phosphate,[place]-Dibasic 133 Ml Enema) 118 ml MI DAILY PRN PRN Reason: Constipation Sodium Chloride (0.9 % Sodium Chloride Flush 3 Ml Syringe) 3 ml IVFLUSH QSHIFT [facility] Last Admin: 10/01/25 07:03 Dose: 3 ml Home Medications ?Medication ?Instructions ?Recorded ?Confirmed ?Last Taken ?Type acetaminophen 325 mg tablet 650 mg PO BEDTIME 09/30/25 09/30/25 Unknown History acetaminophen 325 mg tablet 650 mg PO Q8H PRN arthriti s pain 09/30/25 09/30/25 Unknown History acetaminophen 650 mg rectal 650 mg MI Q6H PRN discomfo rt/temp 09/30/25 09/30/25 Unknown History suppository >101 ascorbic acid (vitamin C) 500 mg 500 mg PO DAILY 09/3009/30/25 Unknown History tablet aspirin 81 mg chewable tablet 81 mg PO DAILY 09/30/25 09/30/25 Unknown History atorvastatin 20 mg tablet 20 mg PO BEDTIME 09/30/25 Unknown History baclofen 10 mg tablet 5 mg PO TID 09/30/25 5 Unknown History bisacodyl 10 mg rectal suppository 10 mg MI DAILY PRN Constipation 09/30/25 09/30/25 Unknown History docusate sodium 100 mg capsule 100 mg PO BID 09/30/25 09/30/25 Unknown History epinephrine 0.3 mg/0.3 mL 0.3 mg IM Q5M PRN Anaphylaxi s 09/30/25 09/30/25 Unknown History injection, auto-injector fluoxetine 10 mg capsule 10 mg PO DAILY 09/30/2508/16 Unknown History gabapentin 400 mg capsule 400 mg PO TID 09/30/2509/30 Unknown History glipizide 5 mg tablet 5 mg PO DAILY 09/30/2509/30 Unknown History glucagon HCl 1 mg solution for 1 mg subcut Q15M PRN bs < 70 09/30/25 09/30/25 Unknown History injection (Glucagon (HCl) Emergency Kit) insulin aspart U-100 100 unit/mL 1 sliding scale dose subcut 09/30/25 09/30/25 Unknown History (3 mL) subcutaneous pen USEASDIRECTD lactulose 10 gram/15 mL oral 20 g PO DAILY PRN Constip ation 09/30/25 09/30/25 Unknown History solution loperamide 2 mg capsule 2 mg PO Q4H PRN Diarrhea 08/1609/30/25 Unknown History magnesium hydroxide 400 mg/5 mL 30 ml PO DAILY PRN Con stipation 09/30/25 09/30/25 Unknown History oral suspension (Milk of Magnesia) magnesium oxide 400 mg PO DAILY 09/30/2508/16 Unknown History multivitamin 1 tab PO DAILY 09/30/2508/16 Unknown History naloxone 0.4 mg/mL injection 0.4 mg IM Q3M PRN Opioid Overdose 09/30/25 09/30/25 Unknown History syringe naloxone 4 mg/actuation nasal spray 4 mg intranasal Q3 M PRN Opioid 09/30/25 09/30/25 Unknown History Overdose ondansetron 4 mg disintegrating 4 mg PO Q8H PRN Nausea And Vomiting 09/30/25 09/30/25 Unknown History tablet polyethylene glycol 3350 17 17 g PO BID 09/30/2509/30 Unknown History gram/dose oral powder (Miralax) risperidone 0.25 mg tablet 0.25 mg PO BEDTIME 09/30/25 09/30/25 Unknown History sennosides 8.6 mg tablet (senna) 8.6 mg PO BID 5 09/30/25 Unknown History sodium phosphates 19 gram-7 118 ml MI DAILY PRN Vivek cash 09/30/25 09/30/25 Unknown History gram/118 mL enema (Fleet Enema) Physical Exam 2 Vital Signs: Vital Signs: Last Vital Signs Temp 97.4 F 10/01/25 15:07 Pulse 61 10/01/25 15:07 Resp 20 10/01/25 15:07 BP 137/64 10/01/25 15:07 Pulse Ox 99 10/01/25 15:07 O2 Del Method Nasal Cannula 10/01/25 15:07 O2 Flow Rate 4 10/01/25 15:07 BMI result Body Mass Index 24.7 Const: General: cooperative HEENT: Head: Yes normal to inspection Face and sinus: Yes normal facial exam Mouth: Normal oral and palatal mucosa present Teeth and gingiva: d entition normal Eyes: General: appearance normal, both eyes and all related structures P upils: Equal, round and reactive pupils present Resp: Effort & Inspection: normal respiratory effort Cardio: Rate: regular rate Rhythm: regular rhythm GI: Palpation (GI): Soft to palpation and nontender : General: Yes no CVA tenderness Back/Spine/Pelvis: Back: no CVA tenderness Skin: General skin exam: no rashes or lesions noted Neuro: General: moves all extremities Cranial nerves: Yes Equal, round and reactive pupils present Extrem: General: Yes normal to inspection Psych: Other: confused but awake Results Labs 10/01/25 03:51 10/01/25 03:51 Labs: Short CBC 09/30/25 10/01/25 Range/Units 21:47 03:51 WBC 4.7 L 4.5 L (4.8-10.8) X10*3/uL Hgb 10.5 L 10.5 L (14.0-18.0) g/dl Hct 33.7 L 33.6 L (42.0-52.0) % Plt Count 105 L 102 L (160-400) X10*3/uL BMP 09/30/25 10/01/25 21:47 03:51 Sodium 144 144 Potassium 2.8 L* 3.7 D Chloride 114 H 114 H Carbon Dioxide 23 25 BUN 27 H 25 H Creatinine 0.55 0.54 Calcium 7.9 L D 7.7 L Liver Function 09/30/25 10/01/25 Range/Units 21:47 03:51 Total Bilirubin 0.5 0.6 (0.0-1.0) mg/dL AST 13 13 (5-37) U/L ALT 7 < 6 (0-40) U/L Alkaline Phosphatase 47 41 (39-117) U/L Albumin 3.2 L 2.8 L (3.5-5.0) g/dL Microbiology Microbiology Results: Microbiology 09/29/25 19:39 Urine clean catch - Clean Catch Midstream Urine Culture - Preliminary Gram negative nataliya 09/29/25 19:17 Blood - Venous Blood Culture - Preliminary Coag negative Staphylococcus 09/29/25 19:19 Blood - Venous Blood Culture - Preliminary No growth after 24 hours. Assessment and Plan (1) Abnormal CT of the abdomen: Status: Acute (2) Acute osteomyelitis of sacrum: Status: Acute (3) Cholelithiasis: Qualifiers: Cholelithiasis location: gallbladder Cholecystitis presence: without cholecystitis Biliary obstruction: without biliary obstruction Qualified Code(s): K80.20 - Calculus of gallbladder without cholecystitis without obstruction Status: Acute Plan Likely OM sacrum cause of fever especially with fistula. He has possible gram negative or gram positive or anerobe. Do not think that cholecystitis is reason Urine gram negative culture may be helpful to guide therapy as may be related to organisms also present in bone/wound sacrum. Coagulase negative staph 09/29 blood is contaminant Bone biopsy would be best before leaves with gram stain and culture if surgery can do or even deep wound culture would be helpful. Would give IV Ertapenem for six weeks if sensitive and able ( hope patient not pull out line) This is not curable but help suppress Surgery to follow assess fistula? Plastic Surgery. Check creatinine and CBC weekly as well as ESR .
--- NOTE | 2025-10-01 15:42 | HO.WOUND ---
Wound Consult: Initial 75yr old?[place] [facility] [place] - See progress notes and H&P for detailed history.? Wound consult placed for sacrum.? Patient agreeable to assessment and photo documentation.? 10/01/25 Coccyx Etiology: ??Stage 4 Pressure Injury Present on Admission Measurements: 2cm x 0.8cm x 0.4cm Wound Bed: marbled with red pink moist tissue and slough Drainage / Odor: None noted - dressing saturated with liquid stool Edges: ? macerated and linear Lorenza wound: ?Scar tissue noted, MASD and Maceration No Induration, Fluctuance or Warmth noted Pain: pain reported at times Goals of Treatment: ? Off Load Pressure and Durafiber ag Penis shaft noted for MASD - linear open wounds at base of penis - clean and pink - skin prep applied - discontinued condom cath and male purewick applied. Recommendations: 1. Turn and Reposition every 2 hours and as needed for patient comfort.? Use pillows or wedges to support off loading positions. 2. Off Load all bony prominences with use of pillows and heel boots if needed.? Apply Preventative foams where needed. ? 3. Monitor for incontinence and moisture control, use barrier creams when needed for prevention and treatment. 4. Provide adequate and supplemental nutrition.? 5. Order low air loss mattress. 6. When applicable maintain blood glucose levels per Providers order. Coccyx - Off Load Pressure with Q2 hr turns and use of pillows - Cleanse with Ns moist gauze, pat dry. ?Apply thin layer of Triad toperi wound. Lihgtly pack wound bed with Durafiber AG Cover with foam dressing to aid in off loading and protection from friction. Change Daily. Re-consult wound care Nurse for wound deterioration or wound changes.
[2025-10-01 15:49] LABS: Glucose, Whole Blood 168 mg/dL (60-115)
[2025-10-01 20:35] LABS: Glucose, Whole Blood 135 mg/dL (60-115)
--- NOTE | 2025-10-01 21:30 | HE.PHANOTE ---
RE: vanco LEvel 10/01 came back at 13.5mg/L, increased dose to 1250mg Q12H with predicted AUC of 535, trough of 14.5. Next level 10/02 @2100
[2025-10-02] VITALS (7 sets, daily range): BP systolic 97–145; BP diastolic 49–71; PULSE 52–60; RESP 15–20; TEMP 36.2–36.8; O2SAT 86–99; BMI 24.7
[2025-10-02 05:53] LABS: Hematocrit 33.6 % (42.0-52.0); Hemoglobin 10.7 g/dl (14.0-18.0); Imm Gran Abs Auto 0.02 X10*3/uL (0.00-0.03); Imm Gran Pct Auto 0.5 % (0.0-0.4); Lymphocytes Absolute Auto 0.9 X10*3/uL (1.2-4.9); MANUAL DIFF FLAG SCAN; Mean Corpuscular HGB Conc 31.8 g/dl (31.0-36.0); Mean Corpuscular Hemoglobin 27.2 pg (27.0-33.0); Mean Corpuscular Volume 85.5 fL (80.0-98.0); NRBC Abs Auto 0.000 X10*3/uL (0.0-0.012); NRBC Pct Auto 0.0 /100WBC (0.0-0.2); PLT CLUMP 1; Red Blood Count 3.93 X10*6/uL (4.60-5.80); SCAN SMEAR FLAG 1
[2025-10-02 06:07] LABS: Alanine Aminotransferase 6 U/L (0-40); Albumin Level 3.2 g/dL (3.5-5.0); Alkaline Phosphatase 42 U/L (39-117); Anion Gap 10 (12-20); Aspartate Amino Transferase 17 U/L (5-37); Blood Urea Nitrogen 21 mg/dL (9-16); Calcium 8.1 mg/dL (8.4-10.2); Carbon Dioxide 23 mmol/L (22-29); Chloride 114 mmol/L (96-108); Creatinine Clr Calc Pharmacy 86.2; Estimated Glomerular Filt Rate > 60; Potassium 3.4 mmol/L (3.3-5.1); Sodium 144 mmol/L (135-145); Total Protein 4.8 g/dL (6.5-8.0)
[2025-10-02 06:21] LABS: Platelet Count 99 X10*3/uL (160-400); White Blood Count 4.4 X10*3/uL (4.8-10.8)
[2025-10-02 07:44] LABS: Glucose, Whole Blood 201 mg/dL (60-115)
[2025-10-02] MEDS: 0.9 % Sodium Chloride Flush 3 ML SYRINGE IVFLUSH ×2 (08:40→16:57)
--- NOTE | 2025-10-02 08:57 | P.PNIM_ITS ---
Subjective Subjective Date of Service: 10/02/25 Interval History: Blood pressure has been relatively stable overnight, no further deeps overall seems to be doing better Physical Exam 2 Vital Signs: Vital Signs: Last Vital Signs Temp 97.4 F 10/02/25 07:36 Pulse 57 10/02/25 07:36 Resp 20 10/02/25 07:36 BP 117/71 10/02/25 07:36 Pulse Ox 99 10/02/25 07:36 O2 Del Method Nasal Cannula 10/02/25 07:36 O2 Flow Rate 4 10/02/25 07:36 BMI result Body Mass Index 24.7 Const: Other: General: alert, oriented to self, o/w confused Resp: CTA bilateral CVS: S1,S2,RRR GI: +BS, NT, no distention Skin: sacral ulcer noted elesewhere Neuro: motor grossly intact Psych: appropriate affect Objective Data Active Medications Acetaminophen (Acetaminophen 325 Mg Tablet) 975 mg PO Q6H PRN PRN Reason: Pain, Mild 1-3,fever,headache Acetaminophen (Acetaminophen Supp 650 Mg Supp.Rect) 650 mg AL Q6H PRN PRN Reason: discomfort/temp >101 Ascorbic Acid (Ascorbic Acid 500 Mg Tablet) 500 mg PO DAILY [facility] Last Admin: 10/02/25 08:39 Dose: 500 mg Documented By: TARSHA Aspirin (Aspirin 81 Mg Tab.Chew) 81 mg PO DAILY [facility] Last Admin: 10/02/25 08:39 Dose: 81 mg Documented By: TARSHA Atorvastatin Calcium (Atorvastatin Calcium 20 Mg Tablet) 20 mg PO BEDTIME [facility] Last Admin: 10/01/25 20:26 Dose: 20 mg Documented By: JOSÉ MIGUEL Baclofen (Baclofen 10 Mg Tablet) 5 mg PO TID [facility] Last Admin: 10/02/25 08:38 Dose: 5 mg Documented By: TARSHA Bisacodyl (Bisacodyl 10 Mg Supp.Rect) 10 mg AL DAILY PRN PRN Reason: Constipation Calcium Carbonate (Calcium Carbonate 750 Mg Tab.Chew) 750 mg PO Q4H PRN PRN Reason: Heartburn Dextrose (Dextrose 50 % 25 Gm/50 Ml Syringe) 25 gm IVPUSH Q15M PRN; Protocol PRN Reason: per Hypoglycemia Standing Ord. Docusate Sodium (Docusate Sodium 100 Mg Capsule) 100 mg PO BID [facility] Last Admin: 10/02/25 08:39 Dose: Not Given Documented By: TARSHA Non-Admin Reason: unable to crush Fluoxetine HCl (Fluoxetine Hcl 10 Mg Capsule) 10 mg PO DAILY [facility] Last Admin: 10/02/25 08:39 Dose: 10 mg Documented By: TARSHA Gabapentin (Gabapentin 400 Mg Capsule) 400 mg PO TID [facility] Last Admin: 10/02/25 08:38 Dose: 400 mg Documented By: TARSHA Glipizide (Glipizide 5 Mg Tablet) 5 mg PO DAILY [facility] Last Admin: 10/02/25 08:39 Dose: 5 mg Documented By: TARSHA Glucose (Glucose Gel 15 Gm Gel..Gram.) 15 gm PO Q15M PRN; Protocol PRN Reason: per Hypoglycemia Standing Ord. Heparin Sodium (Porcine) (Heparin Sodium,Porcine 5,000 Unit/Ml Vial) 5,000 unit SUBCUT Q12H [facility] Last Admin: 10/02/25 02:00 Dose: 5,000 unit Documented By: JOSÉ MIGUEL Piperacillin Sod/Tazobactam (Sod 3.375 gm/ Sodium Chloride) 50 mls @ 100 mls/hr IV Q6H [facility] Last Infusion: 10/02/25 07:22 Dose: Infused Documented By: TARSHA Vancomycin HCl 1,250 mg/ (Sodium Chloride) 250 mls @ 166.667 mls/hr IV Q12H [facility] Last Infusion: 10/02/25 00:44 Dose: Infused Documented By: JOSÉ MIGUEL Insulin Human Lispro (Insulin Lispro 100 Unit/Ml 3 Ml Vial) 0 unit SUBCUT QIDACHS [facility]; Protocol Last Admin: 10/02/25 08:39 Dose: 4 unit Documented By: TARSHA Lactulose (Lactulose 20 Gm/30 Ml Solution) 20 gm PO DAILY PRN PRN Reason: Constipation Loperamide HCl (Loperamide Hcl 2 Mg Capsule) 2 mg PO Q4H PRN PRN Reason: Diarrhea Magnesium Hydroxide (Milk Of Magnesia 30 Ml Oral.Susp) 30 ml PO DAILY PRN PRN Reason: Constipation Magnesium Oxide (Magnesium Oxide 400 Mg Tablet) 400 mg PO DAILY [facility] Last Admin: 10/02/25 08:39 Dose: 400 mg Documented By: TARSHA Melatonin (Melatonin 3 Mg Tablet) 6 mg PO BEDTIME PRN PRN Reason: Insomnia Midodrine (Midodrine Hcl 5 Mg Tablet) 5 mg PO TID@0900,1300,1700 [facility] Last Admin: 10/02/25 08:39 Dose: 5 mg Documented By: TARSHA Multivitamins/Vitamin C (Multivitamin Tablet) 1 tab PO DAILY [facility] Last Admin: 10/02/25 08:38 Dose: 1 tab Documented By: TARSHA Naloxone HCl (Naloxone Hcl 0.4 Mg/Ml Vial) 0.4 mg IM Q3M PRN PRN Reason: Opioid Overdose Ondansetron HCl (Ondansetron Odt 4 Mg Tab.Rapdis) 4 mg TRANSLINGU Q8H PRN PRN Reason: Nausea and Vomiting Pharmacy Consult (Consult Rx Vancomycin Dosing) 1 each MISCELLANE DAILY PRN PRN Reason: Consult order Polyethylene Glycol (Polyethylene Glycol 3350 17 Gm Powd.Pack) 17 gm PO BID [facility] Last Admin: 10/01/25 20:28 Dose: 17 gm Documented By: JOSÉ MIGUEL Risperidone (Risperidone 0.25 Mg Tablet) 0.25 mg PO BEDTIME [facility] Last Admin: 10/01/25 20:26 Dose: 0.25 mg Documented By: JOSÉ MIGUEL Senna (Sennosides 8.6 Mg Tablet) 8.6 mg PO BID [facility] Last Admin: 10/02/25 08:39 Dose: 8.6 mg Documented By: TARSHA Sodium Biphosphate/Sodium Phosphate (Sodium Phosphate,[place]-Dibasic 133 Ml Enema) 118 ml AL DAILY PRN PRN Reason: Constipation Sodium Chloride (0.9 % Sodium Chloride Flush 3 Ml Syringe) 3 ml IVFLUSH QSHIFT [facility] Last Admin: 10/02/25 08:40 Dose: 3 ml Documented By: TARSHA Labs 10/02/25 05:41 10/02/25 05:41 Labs: Laboratory Results - last 24 hr 10/01/25 10/01/25 10/01/25 13:10 15:40 20:25 MCV MCH MCHC RDW Plt Count MPV Immature Gran % (Auto) Neut % (Auto) Lymph % (Auto) [place] % (Auto) Eos % (Auto) Baso % (Auto) Lymph # (Auto) [place] # (Auto) Eos # (Auto) Baso # (Auto) Abs Immat Gran (auto) Absolute Neuts (auto) Absolute Nucleated RBC Nucleated RBC % (auto) Smear Tech's Comments Anion Gap Estim Creat Clear Calc Estimated GFR POC Glucose 126 H 168 H 135 H Random Glucose Calcium Total Bilirubin AST ALT Alkaline Phosphatase Total Protein Albumin Vancomycin Trough 10/01/25 10/02/25 10/02/25 20:53 05:41 07:34 MCV 85.5 MCH 27.2 MCHC 31.8 RDW 15.3 Plt Count 99 L MPV 13.1 H Immature Gran % (Auto) 0.5 H Neut % (Auto) 68.4 Lymph % (Auto) 21.3 [place] % (Auto) 7.3 Eos % (Auto) 2.3 Baso % (Auto) 0.2 Lymph # (Auto) 0.9 L [place] # (Auto) 0.3 Eos # (Auto) 0.1 Baso # (Auto) 0.0 Abs Immat Gran (auto) 0.02 Absolute Neuts (auto) 3.0 Absolute Nucleated RBC 0.000 Nucleated RBC % (auto) 0.0 Smear Tech's Comments VERIFIED Anion Gap 10 L Estim Creat Clear Calc 86.2 Estimated GFR > 60 POC Glucose 201 H Random Glucose 207 H Calcium 8.1 L Total Bilirubin 0.6 AST 17 ALT 6 Alkaline Phosphatase 42 Total Protein 4.8 L Albumin 3.2 L Vancomycin Trough 13.5 Microbiology Microbiology Results: Microbiology 09/29/25 19:39 Urine Culture - Final Urine clean catch - Clean Catch Midstream Escherichia coli 09/29/25 19:19 Blood Culture - Preliminary Blood - Venous No growth after 48 hours. 09/29/25 19:17 Blood Culture - Preliminary Blood - Venous Coag negative Staphylococcus Assessment and Plan (1) Acute osteomyelitis of sacrum: Status: Acute (2) Metabolic encephalopathy: Status: Acute Plan 75-year-old male with a history of dementia, hyperlipidemia, hypertension, depression, diabetes with diabetic neuropathy, personality disorder, essential tremor, left BKA, right AKA, and failure to thrive, who presented to the ED via EMS from his nursing facility for decreased responsiveness. Work up has revealed infected sacral uler and possible osteomylitis. HypOtension, nomal lactic, no other SIRs criteri, improved with IVF, albumin and midodrine Blood pressure is much better, continue monitoring Acute metabolic encephalopthy with underlying advanced dementia possibly d/t underlying infection and dehydration. treating underlying infection Sacral ulcer with Osteomylitis, sinus tract vancomycin and zosyn started 09/30, change Zosyn to ceftriaxone for e. coli uti seen by surgery no indication for intervention wound nurse consult ID is recommending possible bone or deep tissue biopsy follow culture, so far negative exept coag neg staph x 1, likely contamination and E. coli in urine pansensitive E.coli UTI, ceftriaxone as before HypErnatremia d/t dehydration , resolved with IVF ?Acute cholecystitis on CT, ruled out on US nontender on exam LFTS normal general surgery saw, clinically doesn't appear to have cholecysitis, and US showed contracted galbladder and cholelithiasis avascular necrosis on CT ?chronic no pain with palpation of the hip general surgery consult as above proctitis on CT ?stercoral colitis/constipation continue bowel regimen surgery consult as above DM with complication of PVD s/p BKA, hyperglycemia SSI hold glipizide diabetic diet HLD continue home meds HTN BP soft, hold home meds depression continue home meds FTT - nutrition consult Quality Stroke Does the patient have a stroke diagnosis?: No VTE Prior VTE?: No VTE Risk Level:: Medical - moderate - high VTE Device Contraindication: Treatment Not Indicated VTE Drug Contraindication: N/A - Med Ordered
--- NOTE | 2025-10-02 10:44 | MHC.CLN ---
CONSULT PT WITH INCREASED NUTRITION RISK R/T PRESSURE INJURY DIET RX: 2000DM PUREED RECOMMEND ADDING ENSURE MAX TO PROMOTE [employer]OUND [employer]ALING SUPP TO PROVIDE 300KCALS, 60G PROTEIN MONITOR PO INTAKE AND ENCOURAGE SUPPLEMENTS SEE FULL ASSESSMENT
[2025-10-02 11:34] LABS: Glucose, Whole Blood 182 mg/dL (60-115)
[2025-10-02 16:04] LABS: Glucose, Whole Blood 141 mg/dL (60-115)
[2025-10-02 20:05] LABS: Glucose, Whole Blood 143 mg/dL (60-115)
--- NOTE | 2025-10-02 22:12 | HE.PHANOTE ---
RE: vanco Level on 10/02 came back at 22.7mg/L, held PM dose. Decreased to 1000mg Q12H to start tomorrow morning with predicted AUC of 543 mg/L, trough of 17.2 mg/L. Next level to be drawn 10/04 @0700
[2025-10-03 03:23] VITALS: BP 121/62; PULSE 60; RESP 16; TEMP 36.4; O2SAT 94
[2025-10-03 07:44] LABS: Glucose, Whole Blood 218 mg/dL (60-115)
[2025-10-03 07:53] VITALS: BP 145/65; PULSE 62; RESP 20; TEMP 36.8; O2SAT 94
[2025-10-03 07:53] LABS: Creatinine Clr Calc Pharmacy 55.9; Estimated Glomerular Filt Rate > 60
[2025-10-03 08:31] LABS: NRBC Abs Auto 0.000 X10*3/uL (0.0-0.012); NRBC Pct Auto 0.0 /100WBC (0.0-0.2); Red Blood Count 4.03 X10*6/uL (4.60-5.80); SCAN SMEAR FLAG 1
[2025-10-03 08:33] LABS: Hematocrit 34.2 % (42.0-52.0); Hemoglobin 10.9 g/dl (14.0-18.0); Imm Gran Abs Auto 0.02 X10*3/uL (0.00-0.03); Imm Gran Pct Auto 0.4 % (0.0-0.4); Lymphocytes Absolute Auto 0.8 X10*3/uL (1.2-4.9); MANUAL DIFF FLAG SCAN; Mean Corpuscular HGB Conc 31.9 g/dl (31.0-36.0); Mean Corpuscular Hemoglobin 27.0 pg (27.0-33.0); Mean Corpuscular Volume 84.9 fL (80.0-98.0); PLT CLUMP 1
[2025-10-03 08:34] LABS: Anion Gap 13 (12-20); Carbon Dioxide 22 mmol/L (22-29); Chloride 116 mmol/L (96-108); Potassium 3.3 mmol/L (3.3-5.1); Sodium 148 mmol/L (135-145)
[2025-10-03 08:35] LABS: PLT ABN DIST 1
[2025-10-03 09:09] LABS: Platelet Count 113 X10*3/uL (160-400); White Blood Count 4.5 X10*3/uL (4.8-10.8)
--- NOTE | 2025-10-03 10:04 | MHC.CLN ---
F/U PO INTAKE VARIABLE RANGING FROM 50-100% DIET RX: 2000DM PUREED RECEIVING ENSURE MAX TO [employer]OMOTE [employer]OUND HEAL[employer] SUPP PROVIDES 300KCALS, 60G PROTEIN MONITOR PO INTAKE AND ENCOURAGE SUPPLEMENTS
--- NOTE | 2025-10-03 11:33 | HO.PM.IMPN ---
Subjective Subjective Date of Service: 10/03/25 Interval History: Hypotension resolved, he's more alert at baseline mental status blood cultures thus far negative, urine culture E.coli Physical Exam Vital Signs: Vital Signs: Last Vital Signs Temp 98.3 F 10/03/25 07:53 Pulse 62 10/03/25 07:53 Resp 20 10/03/25 07:53 BP 145/65 H 10/03/25 07:53 Pulse Ox 94 10/03/25 07:53 O2 Del Method Room Air 10/03/25 07:53 O2 Flow Rate 2 10/03/25 03:23 BMI result Body Mass Index 24.7 Const: Other: General: alert, oriented to self, o/w confused Resp: CTA bilateral CVS: S1,S2,RRR GI: +BS, NT, no distention Skin: sacral ulcer noted elesewhere, s/p sheyla amputation Neuro: motor grossly intact Psych: appropriate affect Objective Data Active Medications Acetaminophen (Acetaminophen 325 Mg Tablet) 975 mg PO Q6H PRN PRN Reason: Pain, Mild 1-3,fever,headache Last Admin: 10/02/25 10:30 Dose: 975 mg Documented By: TARSHA Acetaminophen (Acetaminophen Supp 650 Mg Supp.Rect) 650 mg [place] Q6H PRN PRN Reason: discomfort/temp >101 Ascorbic Acid (Ascorbic Acid 500 Mg Tablet) 500 mg PO DAILY [facility] Last Admin: 10/03/25 08:26 Dose: 500 mg Documented By: ZOE Aspirin (Aspirin 81 Mg Tab.Chew) 81 mg PO DAILY [facility] Last Admin: 10/03/25 08:25 Dose: 81 mg Documented By: ZOE Atorvastatin Calcium (Atorvastatin Calcium 20 Mg Tablet) 20 mg PO BEDTIME [facility] Last Admin: 10/02/25 21:22 Dose: 20 mg Documented By: JOSÉ MIGUEL Baclofen (Baclofen 10 Mg Tablet) 5 mg PO TID [facility] Last Admin: 10/03/25 08:25 Dose: 5 mg Documented By: ZOE Bisacodyl (Bisacodyl 10 Mg Supp.Rect) 10 mg NC DAILY PRN PRN Reason: Constipation Calcium Carbonate (Calcium Carbonate 750 Mg Tab.Chew) 750 mg PO Q4H PRN PRN Reason: Heartburn Dextrose (Dextrose 50 % 25 Gm/50 Ml Syringe) 25 gm IVPUSH Q15M PRN; Protocol PRN Reason: per Hypoglycemia Standing Ord. Docusate Sodium (Docusate Sodium 100 Mg Capsule) 100 mg PO BID [facility] Last Admin: 10/03/25 08:41 Dose: Not Given Documented By: ZOE Non-Admin Reason: Patient Condition Contraindication Fluoxetine HCl (Fluoxetine Hcl 10 Mg Capsule) 10 mg PO DAILY [facility] Last Admin: 10/03/25 08:25 Dose: 10 mg Documented By: ZOE Gabapentin (Gabapentin 400 Mg Capsule) 400 mg PO TID [facility] Last Admin: 10/03/25 08:25 Dose: 400 mg Documented By: ZOE Glipizide (Glipizide 5 Mg Tablet) 5 mg PO DAILY [facility] Last Admin: 10/03/25 08:25 Dose: 5 mg Documented By: ZOE Glucose (Glucose Gel 15 Gm Gel..Gram.) 15 gm PO Q15M PRN; Protocol PRN Reason: per Hypoglycemia Standing Ord. Heparin Sodium (Porcine) (Heparin Sodium,Porcine 5,000 Unit/Ml Vial) 5,000 unit SUBCUT Q12H [facility] Last Admin: 10/03/25 03:00 Dose: 5,000 unit Documented By: JOSÉ MIGUEL Ceftriaxone Sodium 2 gm/ (Sodium Chloride) 50 mls @ 100 mls/hr IV Q24H [facility] Last Infusion: 10/02/25 14:07 Dose: Infused Documented By: TARSHA Vancomycin HCl 750 mg/ Sodium (Chloride) 265 mls @ 265 mls/hr IV Q12H [facility] Insulin Human Lispro (Insulin Lispro 100 Unit/Ml 3 Ml Vial) 0 unit SUBCUT QIDACHS [facility]; Protocol Last Admin: 10/03/25 08:38 Dose: 4 unit Documented By: ZOE Lactulose (Lactulose 20 Gm/30 Ml Solution) 20 gm PO DAILY PRN PRN Reason: Constipation Loperamide HCl (Loperamide Hcl 2 Mg Capsule) 2 mg PO Q4H PRN PRN Reason: Diarrhea Magnesium Hydroxide (Milk Of Magnesia 30 Ml Oral.Susp) 30 ml PO DAILY PRN PRN Reason: Constipation Magnesium Oxide (Magnesium Oxide 400 Mg Tablet) 400 mg PO DAILY [facility] Last Admin: 10/03/25 08:25 Dose: 400 mg Documented By: ZOE Melatonin (Melatonin 3 Mg Tablet) 6 mg PO BEDTIME PRN PRN Reason: Insomnia Midodrine (Midodrine Hcl 5 Mg Tablet) 5 mg PO TID@0900,1300,1700 [facility] Last Admin: 10/03/25 08:41 Dose: Not Given Documented By: ZOE Non-Admin Reason: Elevated Blood Pressure Multivitamins/Vitamin C (Multivitamin Tablet) 1 tab PO DAILY [facility] Last Admin: 10/03/25 08:26 Dose: 1 tab Documented By: ZOE Naloxone HCl (Naloxone Hcl 0.4 Mg/Ml Vial) 0.4 mg IM Q3M PRN PRN Reason: Opioid Overdose Ondansetron HCl (Ondansetron Odt 4 Mg Tab.Rapdis) 4 mg TRANSLINGU Q8H PRN PRN Reason: Nausea and Vomiting Pharmacy Consult (Consult Rx Vancomycin Dosing) 1 each MISCELLANE DAILY PRN PRN Reason: Consult order Polyethylene Glycol (Polyethylene Glycol 3350 17 Gm Powd.Pack) 17 gm PO BID [facility] Last Admin: 10/03/25 08:41 Dose: Not Given Documented By: ZOE Non-Admin Reason: Patient Condition Contraindication Risperidone (Risperidone 0.25 Mg Tablet) 0.25 mg PO BEDTIME [facility] Last Admin: 10/02/25 21:22 Dose: 0.25 mg Documented By: JOSÉ MIGUEL Senna (Sennosides 8.6 Mg Tablet) 8.6 mg PO BID [facility] Last Admin: 10/03/25 08:42 Dose: Not Given Documented By: ZOE Non-Admin Reason: Patient Condition Contraindication Sodium Biphosphate/Sodium Phosphate (Sodium Phosphate,[place]-Dibasic 133 Ml Enema) 118 ml NC DAILY PRN PRN Reason: Constipation Sodium Chloride (0.9 % Sodium Chloride Flush 3 Ml Syringe) 3 ml IVFLUSH QSHIFT [facility] Last Admin: 10/03/25 08:39 Dose: Not Given Documented By: ZOE Non-Admin Reason: IV Running Labs 10/03/25 07:24 10/03/25 06:34 Labs: Laboratory Results - last 24 hr 10/02/25 10/02/25 10/02/25 11: 16:00 19:56 MCV MCH MCHC RDW Plt Count MPV Immature Gran % (Auto) Neut % (Auto) Lymph % (Auto) [place] % (Auto) Eos % (Auto) Baso % (Auto) Lymph # (Auto) [place] # (Auto) Eos # (Auto) Baso # (Auto) Abs Immat Gran (auto) Absolute Neuts (auto) Absolute Nucleated RBC Nucleated RBC % (auto) Smear Tech's Comments Hold Purple Top Anion Gap Estim Creat Clear Calc Estimated GFR POC Glucose 182 H 141 H 143 H Hold Yellow Top Random Vancomycin 10/02/25 10/03/25 10/03/25 21:05 06:34 07:24 MCV 84.9 MCH 27.0 MCHC 31.9 RDW 15.6 Plt Count 113 L MPV Not Reportable Immature Gran % (Auto) 0.4 Neut % (Auto) 71.5 Lymph % (Auto) 18.8 L [place] % (Auto) 7.8 Eos % (Auto) 1.3 Baso % (Auto) 0.2 Lymph # (Auto) 0.8 L [place] # (Auto) 0.4 Eos # (Auto) 0.1 Baso # (Auto) 0.0 Abs Immat Gran (auto) 0.02 Absolute Neuts (auto) 3.2 Absolute Nucleated RBC 0.000 Nucleated RBC % (auto) 0.0 Smear Tech's Comments VERIFIED Hold Purple Top SEE NOTE Anion Gap 13 Estim Creat Clear Calc 55.9 Estimated GFR > 60 POC Glucose Hold Yellow Top See Note Random Vancomycin 22.7 H 10/03/25 07:40 MCV MCH MCHC RDW Plt Count MPV Immature Gran % (Auto) Neut % (Auto) Lymph % (Auto) [place] % (Auto) Eos % (Auto) Baso % (Auto) Lymph # (Auto) [place] # (Auto) Eos # (Auto) Baso # (Auto) Abs Immat Gran (auto) Absolute Neuts (auto) Absolute Nucleated RBC Nucleated RBC % (auto) Smear Tech's Comments Hold Purple Top Anion Gap Estim Creat Clear Calc Estimated GFR POC Glucose 218 H Hold Yellow Top Random Vancomycin Microbiology Microbiology Results: Microbiology 09/29/25 19:17 Blood Culture - Final Blood - Venous Coag negative Staphylococcus Corynebacterium species 09/29/25 19:39 Urine Culture - Final Urine clean catch - Clean Catch Midstream Escherichia coli Assessment and Plan (1) Acute osteomyelitis of sacrum: Status: Acute (2) Metabolic encephalopathy: Status: Acute Plan 75-year-old male with a history of dementia, hyperlipidemia, hypertension, depression, diabetes with diabetic neuropathy, personality disorder, essential tremor, left BKA, right AKA, and failure to thrive, who presented to the ED via EMS from his nursing facility for decreased responsiveness. Work up has revealed infected sacral uler and possible osteomylitis. HypOtension, nomal lactic, no other SIRs criteri, improved with IVF, albumin and midodrine Hypotension now resolved. stop IVF and dc midodrine Acute metabolic encephalopthy with underlying advanced dementia possibly d/t underlying infection and dehydration. treating underlying infection, at baseline Sacral ulcer with Osteomylitis, sinus tract vancomycin and zosyn started 09/30, changed Zosyn to ceftriaxone for e. coli uti seen by surgery no indication for intervention wound nurse consult ID is recommending possible bone or deep tissue biopsy follow culture, so far negative exept coag neg staph x 1, likely contamination and E. coli in urine pansensitive E.coli UTI, ceftriaxone as before HypErnatremia d/t dehydration , resolved with IVF ?Acute cholecystitis on CT, ruled out on US nontender on exam LFTS normal general surgery saw, clinically doesn't appear to have cholecysitis, and US showed contracted galbladder and cholelithiasis avascular necrosis on CT ?chronic no pain with palpation of the hip general surgery consult as above proctitis on CT ?stercoral colitis/constipation continue bowel regimen surgery consult as above DM with complication of PVD s/p BKA, hyperglycemia SSI hold glipizide diabetic diet HLD continue home meds HTN BP soft, hold home meds depression continue home meds FTT - nutrition consult Quality Stroke Does the patient have a stroke diagnosis?: No VTE Prior VTE?: No VTE Risk Level:: Medical - moderate - high VTE Device Contraindication: Treatment Not Indicated VTE Drug Contraindication: N/A - Med Ordered
[2025-10-03 11:34] LABS: Glucose, Whole Blood 230 mg/dL (60-115)
[2025-10-03 11:37] VITALS: BP 128/58; PULSE 52; RESP 18; TEMP 36.8; O2SAT 94
--- NOTE | 2025-10-03 15:27 | MHC.CM.PN ---
per rounds, pt. is improving, anticipate that he can return to SNF tomorrow.
[2025-10-03 15:51] LABS: Glucose, Whole Blood 166 mg/dL (60-115)
[2025-10-03 16:00] VITALS: BP 112/58; PULSE 55; RESP 18; TEMP 37.1; O2SAT 97
[2025-10-03 20:00] VITALS: BP 129/60; PULSE 55; RESP 18; TEMP 37.1; O2SAT 95
[2025-10-03] MEDS: 0.9 % Sodium Chloride Flush 3 ML SYRINGE IVFLUSH ×2 (20:16)
[2025-10-03 20:30] LABS: Glucose, Whole Blood 176 mg/dL (60-115)
[2025-10-04] VITALS (7 sets, daily range): BP systolic 112–139; BP diastolic 55–63; PULSE 51–65; RESP 16–18; TEMP 36.1–38.2; O2SAT 95–97
[2025-10-04 06:58] LABS: Glucose, Whole Blood 223 mg/dL (60-115)
[2025-10-04] MEDS: 0.9 % Sodium Chloride Flush 3 ML SYRINGE IVFLUSH ×2 (07:47→14:21)
[2025-10-04 07:57] LABS: Creatinine Clr Calc Pharmacy 48.2; Estimated Glomerular Filt Rate > 60
[2025-10-04] MEDS: FLUoxetine HCl Oral Solution 20 MG/5 ML SOLUTION 10 MG PO (09:59)
--- NOTE | 2025-10-04 10:19 | HE.PHANOTE ---
RE: VANCO Trough returned @ 15.0. Indication is bone and joint. Changing dose to 1250 mg Q24H with predicted AUC 528 and trough 15.8. Will continue to monitor renal function daily. Next trough due 10/06 @0900.
--- NOTE | 2025-10-04 10:31 | P.PNIM_ITS ---
Subjective Subjective Date of Service: 10/04/25 Interval History: Hypotension resolved, he's more alert at baseline mental status blood cultures thus far negative, urine culture E.coli, low grade temp this morning Physical Exam 2 Vital Signs: Vital Signs: Last Vital Signs Temp 100.7 F H 10/04/25 07:11 Pulse 57 10/04/25 07:11 Resp 16 10/04/25 07:11 BP 139/63 10/04/25 07:11 Pulse Ox 95 10/04/25 07:11 O2 Del Method Room Air 10/04/25 07:11 O2 Flow Rate 2 10/03/25 03:23 BMI result Body Mass Index 24.7 Const: Other: General: alert, oriented to self, o/w confused Resp: CTA bilateral CVS: S1,S2,RRR GI: +BS, NT, no distention Skin: sacral ulcer noted elesewhere, s/p sheyla amputation Neuro: motor grossly intact Psych: appropriate affect Objective Data Active Medications Acetaminophen (Acetaminophen 325 Mg Tablet) 975 mg PO Q6H PRN PRN Reason: Pain, Mild 1-3,fever,headache Last Admin: 10/02/25 10:30 Dose: 975 mg Documented By: TARSHA Acetaminophen (Acetaminophen Supp 650 Mg Supp.Rect) 650 mg [place] Q6H PRN PRN Reason: discomfort/temp >101 Ascorbic Acid (Ascorbic Acid 500 Mg Tablet) 500 mg PO DAILY [facility] Last Admin: 10/04/25 07:46 Dose: 500 mg Documented By: ANISA Aspirin (Aspirin 81 Mg Tab.Chew) 81 mg PO DAILY [facility] Last Admin: 10/04/25 07:46 Dose: 81 mg Documented By: ANISA Atorvastatin Calcium (Atorvastatin Calcium 20 Mg Tablet) 20 mg PO BEDTIME [facility] Last Admin: 10/03/25 20:16 Dose: 20 mg Documented By: NGOC Baclofen (Baclofen 10 Mg Tablet) 5 mg PO TID [facility] Last Admin: 10/04/25 07:46 Dose: 5 mg Documented By: ANISA Bisacodyl (Bisacodyl 10 Mg Supp.Rect) 10 mg [place] DAILY PRN PRN Reason: Constipation Calcium Carbonate (Calcium Carbonate 750 Mg Tab.Chew) 750 mg PO Q4H PRN PRN Reason: Heartburn Dextrose (Dextrose 50 % 25 Gm/50 Ml Syringe) 25 gm IVPUSH Q15M PRN; Protocol PRN Reason: per Hypoglycemia Standing Ord. Docusate Sodium (Docusate Sodium 100 Mg/10 Ml Liquid) 100 mg PO BID [facility] Last Admin: 10/04/25 09:59 Dose: 100 mg Documented By: ANISA Fluoxetine HCl (Fluoxetine Hcl Oral Solution 20 Mg/5 Ml Solution) 10 mg PO DAILY [facility] Last Admin: 10/04/25 09:59 Dose: 10 mg Documented By: ANISA Gabapentin (Gabapentin 400 Mg Capsule) 400 mg PO TID [facility] Last Admin: 10/04/25 07:45 Dose: 400 mg Documented By: ANISA Glipizide (Glipizide 5 Mg Tablet) 5 mg PO DAILY [facility] Last Admin: 10/04/25 07:45 Dose: 5 mg Documented By: ANISA Glucose (Glucose Gel 15 Gm Gel..Gram.) 15 gm PO Q15M PRN; Protocol PRN Reason: per Hypoglycemia Standing Ord. Heparin Sodium (Porcine) (Heparin Sodium,Porcine 5,000 Unit/Ml Vial) 5,000 unit SUBCUT Q12H [facility] Last Admin: 10/04/25 02:24 Dose: 5,000 unit Documented By: NGOC Ceftriaxone Sodium 2 gm/ (Sodium Chloride) 50 mls @ 100 mls/hr IV Q24H [facility] Last Infusion: 10/03/25 15:39 Dose: Infused Documented By: SON Doxycycline Hyclate 100 mg/ (Sodium Chloride) 250 mls @ 166.67 mls/hr IV Q12H [facility] Last Infusion: 10/04/25 01:13 Dose: Infused Documented By: NGOC Vancomycin HCl 1,250 mg/ (Sodium Chloride) 250 mls @ 166.667 mls/hr IV Q24H [facility] Last Admin: 10/04/25 10:22 Dose: 166.67 mls/hr Documented By: ANISA Insulin Human Lispro (Insulin Lispro 100 Unit/Ml 3 Ml Vial) 0 unit SUBCUT QIDACHS [facility]; Protocol Last Admin: 10/04/25 07:48 Dose: 4 unit Documented By: ANISA Lactulose (Lactulose 20 Gm/30 Ml Solution) 20 gm PO DAILY PRN PRN Reason: Constipation Loperamide HCl (Loperamide Hcl 2 Mg Capsule) 2 mg PO Q4H PRN PRN Reason: Diarrhea Magnesium Hydroxide (Milk Of Magnesia 30 Ml Oral.Susp) 30 ml PO DAILY PRN PRN Reason: Constipation Magnesium Oxide (Magnesium Oxide 400 Mg Tablet) 400 mg PO DAILY [facility] Last Admin: 10/04/25 07:45 Dose: 400 mg Documented By: ANISA Melatonin (Melatonin 3 Mg Tablet) 6 mg PO BEDTIME PRN PRN Reason: Insomnia Multivitamins/Vitamin C (Multivitamin Tablet) 1 tab PO DAILY [facility] Last Admin: 10/04/25 07:47 Dose: 1 tab Documented By: ANISA Naloxone HCl (Naloxone Hcl 0.4 Mg/Ml Vial) 0.4 mg IM Q3M PRN PRN Reason: Opioid Overdose Ondansetron HCl (Ondansetron Odt 4 Mg Tab.Rapdis) 4 mg TRANSLINGU Q8H PRN PRN Reason: Nausea and Vomiting Pharmacy Consult (Consult Rx Vancomycin Dosing) 1 each MISCELLANE DAILY PRN PRN Reason: Consult order Polyethylene Glycol (Polyethylene Glycol 3350 17 Gm Powd.Pack) 17 gm PO BID [facility] Last Admin: 10/04/25 07:47 Dose: 17 gm Documented By: ANISA Risperidone (Risperidone 0.25 Mg Tablet) 0.25 mg PO BEDTIME [facility] Last Admin: 10/03/25 20:16 Dose: 0.25 mg Documented By: NGOC Senna (Sennosides 8.6 Mg Tablet) 8.6 mg PO BID [facility] Last Admin: 10/04/25 07:45 Dose: 8.6 mg Documented By: ANISA Sodium Biphosphate/Sodium Phosphate (Sodium Phosphate,Fannin-Dibasic 133 Ml Enema) 118 ml VA DAILY PRN PRN Reason: Constipation Sodium Chloride (0.9 % Sodium Chloride Flush 3 Ml Syringe) 3 ml IVFLUSH QSHIFT [facility] Last Admin: 10/04/25 07:47 Dose: 3 ml Documented By: ANISA Labs 10/03/25 07:24 10/04/25 06:36 Labs: Laboratory Results - last 24 hr 10/03/25 10/03/25 10/03/25 11:29 15:47 20:27 Hold Purple Top Estim Creat Clear Calc Estimated GFR POC Glucose 230 H 166 H 176 H Random Vancomycin 10/03/25 10/04/25 10/04/25 21:11 06:36 06:54 Hold Purple Top SEE NOTE Estim Creat Clear Calc 48.2 Estimated GFR > 60 POC Glucose 223 H Random Vancomycin 19.6 10/04/25 09:22 Hold Purple Top Estim Creat Clear Calc Estimated GFR POC Glucose Random Vancomycin 15.0 Microbiology Microbiology Results: Microbiology 09/29/25 19:17 Blood Culture - Final Blood - Venous Coag negative Staphylococcus Corynebacterium species 09/29/25 19:39 Urine Culture - Final Urine clean catch - Clean Catch Midstream Escherichia coli Assessment and Plan (1) Acute osteomyelitis of sacrum: Status: Acute (2) Metabolic encephalopathy: Status: Acute Plan 75-year-old male with a history of dementia, hyperlipidemia, hypertension, depression, diabetes with diabetic neuropathy, personality disorder, essential tremor, left BKA, right AKA, and failure to thrive, who presented to the ED via EMS from his nursing facility for decreased responsiveness. Work up has revealed infected sacral uler and possible osteomylitis. HypOtension, nomal lactic, no other SIRs criteri, improved with IVF, albumin and midodrine Hypotension now resolved. stopped IVF and dc midodrine Acute metabolic encephalopthy with underlying advanced dementia possibly d/t underlying infection and dehydration. treating underlying infection, at baseline Sacral ulcer with Osteomylitis, sinus tract vancomycin (changed to Doxy) and zosyn started 09/30, changed Zosyn to ceftriaxone for e. coli uti seen by surgery no indication for intervention wound nurse consult ID is recommending possible bone or deep tissue biopsy follow culture, so far negative exept coag neg staph x 1, likely contamination and E. coli in urine pansensitive E.coli UTI, ceftriaxone as above HypErnatremia d/t dehydration , resolved with IVF ?Acute cholecystitis on CT, ruled out on US nontender on exam LFTS normal general surgery saw, clinically doesn't appear to have cholecysitis, and US showed contracted galbladder and cholelithiasis avascular necrosis on CT ?chronic no pain with palpation of the hip general surgery consult as above proctitis on CT ?stercoral colitis/constipation, Abx as aboe continue bowel regimen surgery consult as above DM with complication of PVD s/p BKA, hyperglycemia SSI hold glipizide diabetic diet HLD continue home meds HTN BP soft, hold home meds depression continue home meds FTT - nutrition consult DVT prophylaxis: heparin Quality Stroke Does the patient have a stroke diagnosis?: No VTE Prior VTE?: No VTE Risk Level:: Medical - moderate - high VTE Device Contraindication: Treatment Not Indicated VTE Drug Contraindication: N/A - Med Ordered
[2025-10-04 11:07] LABS: Hematocrit 31.1 % (42.0-52.0); Hemoglobin 10.1 g/dl (14.0-18.0); Mean Corpuscular HGB Conc 32.5 g/dl (31.0-36.0); Mean Corpuscular Hemoglobin 27.3 pg (27.0-33.0); Mean Corpuscular Volume 84.1 fL (80.0-98.0); NRBC Abs Auto 0.000 X10*3/uL (0.0-0.012); NRBC Pct Auto 0.0 /100WBC (0.0-0.2); Platelet Count 131 X10*3/uL (160-400); Red Blood Count 3.70 X10*6/uL (4.60-5.80); White Blood Count 4.1 X10*3/uL (4.8-10.8)
[2025-10-04 11:21] LABS: Glucose, Whole Blood 168 mg/dL (60-115)
[2025-10-04 16:40] LABS: Glucose, Whole Blood 151 mg/dL (60-115)
[2025-10-04 20:21] LABS: Glucose, Whole Blood 234 mg/dL (60-115)
[2025-10-05] VITALS (7 sets, daily range): BP systolic 131–141; BP diastolic 61–88; PULSE 63–70; RESP 14–18; TEMP 36.2–37.1; O2SAT 93–95
[2025-10-05] MEDS: 0.9 % Sodium Chloride Flush 3 ML SYRINGE IVFLUSH ×4 (00:17→21:56)
[2025-10-05 06:29] LABS: Creatinine Clr Calc Pharmacy 51.5; Estimated Glomerular Filt Rate > 60
[2025-10-05 07:35] LABS: Glucose, Whole Blood 201 mg/dL (60-115)
[2025-10-05] MEDS: FLUoxetine HCl Oral Solution 20 MG/5 ML SOLUTION 10 MG PO (07:46)
--- NOTE | 2025-10-05 09:55 | P.PNIM_ITS ---
Subjective Subjective Date of Service: 10/05/25 Interval History: Doing well, no fever Physical Exam 2 Vital Signs: Vital Signs: Last Vital Signs Temp 97.9 F 10/05/25 07:41 Pulse 67 10/05/25 07:41 Resp 14 10/05/25 07:41 BP 141/67 H 10/05/25 07:41 Pulse Ox 95 10/05/25 07:41 O2 Del Method Room Air 10/05/25 07:41 O2 Flow Rate 2 10/03/25 03:23 BMI result Body Mass Index 24.7 Const: Other: General: alert, oriented to self, o/w confused Resp: CTA bilateral CVS: S1,S2,RRR GI: +BS, NT, no distention Skin: sacral ulcer noted elesewhere, s/p sheyla amputation Neuro: motor grossly intact Psych: appropriate affect Objective Data Active Medications Acetaminophen (Acetaminophen 325 Mg Tablet) 975 mg PO Q6H PRN PRN Reason: Pain, Mild 1-3,fever,headache Last Admin: 10/02/25 10:30 Dose: 975 mg Documented By: TARSHA Acetaminophen (Acetaminophen Supp 650 Mg Supp.Rect) 650 mg [place] Q6H PRN PRN Reason: discomfort/temp >101 Ascorbic Acid (Ascorbic Acid 500 Mg Tablet) 500 mg PO DAILY [facility] Last Admin: 10/05/25 07:48 Dose: 500 mg Documented By: NINO Aspirin (Aspirin 81 Mg Tab.Chew) 81 mg PO DAILY [facility] Last Admin: 10/05/25 07:46 Dose: 81 mg Documented By: NINO Atorvastatin Calcium (Atorvastatin Calcium 20 Mg Tablet) 20 mg PO BEDTIME [facility] Last Admin: 10/04/25 22:07 Dose: 20 mg Documented By: GRICEL Baclofen (Baclofen 10 Mg Tablet) 5 mg PO TID [facility] Last Admin: 10/05/25 07:48 Dose: 5 mg Documented By: NINO Bisacodyl (Bisacodyl 10 Mg Supp.Rect) 10 mg NH DAILY PRN PRN Reason: Constipation Calcium Carbonate (Calcium Carbonate 750 Mg Tab.Chew) 750 mg PO Q4H PRN PRN Reason: Heartburn Dextrose (Dextrose 50 % 25 Gm/50 Ml Syringe) 25 gm IVPUSH Q15M PRN; Protocol PRN Reason: per Hypoglycemia Standing Ord. Docusate Sodium (Docusate Sodium 100 Mg/10 Ml Liquid) 100 mg PO BID [facility] Last Admin: 10/05/25 07:46 Dose: 100 mg Documented By: NINO Fluoxetine HCl (Fluoxetine Hcl Oral Solution 20 Mg/5 Ml Solution) 10 mg PO DAILY [facility] Last Admin: 10/05/25 07:46 Dose: 10 mg Documented By: NINO Gabapentin (Gabapentin 400 Mg Capsule) 400 mg PO TID [facility] Last Admin: 10/05/25 07:46 Dose: 400 mg Documented By: NINO Glipizide (Glipizide 5 Mg Tablet) 5 mg PO DAILY [facility] Last Admin: 10/05/25 07:46 Dose: 5 mg Documented By: NINO Glucose (Glucose Gel 15 Gm Gel..Gram.) 15 gm PO Q15M PRN; Protocol PRN Reason: per Hypoglycemia Standing Ord. Heparin Sodium (Porcine) (Heparin Sodium,Porcine 5,000 Unit/Ml Vial) 5,000 unit SUBCUT Q12H [facility] Last Admin: 10/05/25 01:42 Dose: 5,000 unit Documented By: KARINA Ceftriaxone Sodium 2 gm/ (Sodium Chloride) 50 mls @ 100 mls/hr IV Q24H [facility] Last Infusion: 10/04/25 15:01 Dose: Infused Documented By: ANISA Doxycycline Hyclate 100 mg/ (Sodium Chloride) 250 mls @ 166.67 mls/hr IV Q12H [facility] Last Infusion: 10/05/25 01:43 Dose: Infused Documented By: KARINA Vancomycin HCl 1,250 mg/ (Sodium Chloride) 250 mls @ 166.667 mls/hr IV Q24H [facility] Last Infusion: 10/04/25 12:14 Dose: Infused Documented By: ANISA Insulin Human Lispro (Insulin Lispro 100 Unit/Ml 3 Ml Vial) 0 unit SUBCUT QIDACHS [facility]; Protocol Last Admin: 10/05/25 07:50 Dose: 4 unit Documented By: NINO Lactulose (Lactulose 20 Gm/30 Ml Solution) 20 gm PO DAILY PRN PRN Reason: Constipation Loperamide HCl (Loperamide Hcl 2 Mg Capsule) 2 mg PO Q4H PRN PRN Reason: Diarrhea Magnesium Hydroxide (Milk Of Magnesia 30 Ml Oral.Susp) 30 ml PO DAILY PRN PRN Reason: Constipation Magnesium Oxide (Magnesium Oxide 400 Mg Tablet) 400 mg PO DAILY [facility] Last Admin: 10/05/25 07:47 Dose: 400 mg Documented By: NINO Melatonin (Melatonin 3 Mg Tablet) 6 mg PO BEDTIME PRN PRN Reason: Insomnia Multivitamins/Vitamin C (Multivitamin Tablet) 1 tab PO DAILY [facility] Last Admin: 10/05/25 07:47 Dose: 1 tab Documented By: NINO Naloxone HCl (Naloxone Hcl 0.4 Mg/Ml Vial) 0.4 mg IM Q3M PRN PRN Reason: Opioid Overdose Ondansetron HCl (Ondansetron Odt 4 Mg Tab.Rapdis) 4 mg TRANSLINGU Q8H PRN PRN Reason: Nausea and Vomiting Pharmacy Consult (Consult Rx Vancomycin Dosing) 1 each MISCELLANE DAILY PRN PRN Reason: Consult order Polyethylene Glycol (Polyethylene Glycol 3350 17 Gm Powd.Pack) 17 gm PO BID [facility] Last Admin: 10/05/25 07:50 Dose: Not Given Documented By: NINO Non-Admin Reason: Patient Condition Contraindication Risperidone (Risperidone 0.25 Mg Tablet) 0.25 mg PO BEDTIME [facility] Last Admin: 10/04/25 22:06 Dose: 0.25 mg Documented By: GRICEL Senna (Sennosides 8.6 Mg Tablet) 8.6 mg PO BID [facility] Last Admin: 10/05/25 07:50 Dose: Not Given Documented By: NINO Non-Admin Reason: Patient Condition Contraindication Sodium Biphosphate/Sodium Phosphate (Sodium Phosphate,Richardson-Dibasic 133 Ml Enema) 118 ml NH DAILY PRN PRN Reason: Constipation Sodium Chloride (0.9 % Sodium Chloride Flush 3 Ml Syringe) 3 ml IVFLUSH QSHIFT [facility] Last Admin: 10/05/25 07:55 Dose: 3 ml Documented By: NINO Labs 10/04/25 06:36 10/05/25 05:53 Labs: Laboratory Results - last 24 hr 10/04/25 10/04/25 10/04/25 06:36 11:10 16:33 MCV 84.1 MCH 27.3 MCHC 32.5 RDW 16.0 Plt Count 131 L MPV 12.9 H Absolute Nucleated RBC 0.000 Nucleated RBC % (auto) 0.0 Hold Purple Top Estim Creat Clear Calc Estimated GFR POC Glucose 168 H 151 H 10/04/25 10/05/25 10/05/25 19:51 05:53 07:19 MCV MCH MCHC RDW Plt Count MPV Absolute Nucleated RBC Nucleated RBC % (auto) Hold Purple Top SEE NOTE Estim Creat Clear Calc 51.5 Estimated GFR > 60 POC Glucose 234 H 201 H Microbiology Microbiology Results: Microbiology 09/29/25 19:19 Blood Culture - Final Blood - Venous No growth after 5 days. Assessment and Plan (1) Acute osteomyelitis of sacrum: Status: Acute (2) Metabolic encephalopathy: Status: Acute Plan 75-year-old male with a history of dementia, hyperlipidemia, hypertension, depression, diabetes with diabetic neuropathy, personality disorder, essential tremor, left BKA, right AKA, and failure to thrive, who presented to the ED via EMS from his nursing facility for decreased responsiveness. Work up has revealed infected sacral uler and possible osteomylitis. HypOtension, nomal lactic, no other SIRs criteri, improved with IVF, albumin and midodrine Hypotension now resolved. stopped IVF and dc midodrine Acute metabolic encephalopthy with underlying advanced dementia possibly d/t underlying infection and dehydration. treating underlying infection, at baseline Sacral ulcer with Osteomylitis, sinus tract vancomycin (changed to Doxy) and zosyn started 09/30, changed Zosyn to ceftriaxone for e. coli uti seen by surgery no indication for intervention wound nurse consult ID is recommending possible bone or deep tissue biopsy follow culture, so far negative exept coag neg staph x 1, likely contamination and E. coli in urine pansensitive E.coli UTI, ceftriaxone as above HypErnatremia d/t dehydration , resolved with IVF ?Acute cholecystitis on CT, ruled out on US nontender on exam LFTS normal general surgery saw, clinically doesn't appear to have cholecysitis, and US showed contracted galbladder and cholelithiasis avascular necrosis on CT ?chronic no pain with palpation of the hip general surgery consult as above proctitis on CT ?stercoral colitis/constipation, Abx as aboe continue bowel regimen surgery consult as above DM with complication of PVD s/p BKA, hyperglycemia SSI hold glipizide diabetic diet HLD continue home meds HTN BP soft, hold home meds depression continue home meds FTT - nutrition consult DVT prophylaxis: heparin Discuss Discharge Abx with ID Quality Stroke Does the patient have a stroke diagnosis?: No VTE Prior VTE?: No VTE Risk Level:: Medical - moderate - high VTE Device Contraindication: Treatment Not Indicated VTE Drug Contraindication: N/A - Med Ordered
[2025-10-05 10:10] LABS: MANUAL DIFF FLAG NO
[2025-10-05 10:14] LABS: Hematocrit 32.2 % (42.0-52.0); Hemoglobin 10.3 g/dl (14.0-18.0); Imm Gran Abs Auto 0.02 X10*3/uL (0.00-0.03); Imm Gran Pct Auto 0.5 % (0.0-0.4); Lymphocytes Absolute Auto 0.8 X10*3/uL (1.2-4.9); Mean Corpuscular HGB Conc 32.0 g/dl (31.0-36.0); Mean Corpuscular Hemoglobin 27.4 pg (27.0-33.0); Mean Corpuscular Volume 85.6 fL (80.0-98.0); NRBC Abs Auto 0.000 X10*3/uL (0.0-0.012); NRBC Pct Auto 0.0 /100WBC (0.0-0.2); Platelet Count 130 X10*3/uL (160-400); Red Blood Count 3.76 X10*6/uL (4.60-5.80); White Blood Count 4.0 X10*3/uL (4.8-10.8)
[2025-10-05 10:24] LABS: Anion Gap 11 (12-20); Blood Urea Nitrogen 36 mg/dL (9-16); Calcium 8.3 mg/dL (8.4-10.2); Carbon Dioxide 22 mmol/L (22-29); Chloride 118 mmol/L (96-108); Potassium 3.1 mmol/L (3.3-5.1); Sodium 148 mmol/L (135-145)
[2025-10-05 11:37] LABS: Glucose, Whole Blood 193 mg/dL (60-115)
--- NOTE | 2025-10-05 12:50 | MHC.CLN ---
F/U PO INTAKE VARIABLE WITH MOST MEALS 50% DIET RX: 2000DM PUREED RECEIVING ENSURE MAX BID TO PROMOTE WOUND HEALING SUPP PROVIDES 300KCALS, 60G PROTEIN FOLLOW FOR PO INTAKE AND WOUND HEALING
--- NOTE | 2025-10-05 13:16 | HO.WOUND ---
Wound Consult: follow up 75yr old?male admitted to [facility] on 09/30/25 - See progress notes and H&P for detailed history.? Wound follow up for coccyx.? Patient agreeable to assessment and photo documentation.? 10/01/25 Coccyx 10/05/25 Etiology: ??Stage 4 Pressure Injury Present on Admission Measurements: 3cm x 2cm x 1cm Wound Bed: marbled with red pink moist tissue and slough Drainage / Odor: None noted Edges: ? macerated and linear Devi wound: ?Scar tissue noted, MASD and Maceration No Induration, Fluctuance or Warmth noted Pain: pain reported at times Goals of Treatment: ? Off Load Pressure and Durafiber ag Recommendations: 1. Turn and Reposition every 2 hours and as needed for patient comfort.? Use pillows or wedges to support off loading positions. 2. Off Load all bony prominences with use of pillows and heel boots if needed.? Apply Preventative foams where needed. ? 3. Monitor for incontinence and moisture control, use barrier creams when needed for prevention and treatment. 4. Provide adequate and supplemental nutrition.? 5. Order low air loss mattress. 6. When applicable maintain blood glucose levels per Providers order. Coccyx - Off Load Pressure with Q2 hr turns and use of pillows - Cleanse with Ns moist gauze, pat dry. ?Apply thin layer of Triad to devi wound. Lightly pack wound bed with Durafiber AG Cover with foam dressing to aid in off loading and protection from friction. Change Daily and PRN Re-consult wound care Nurse for wound deterioration or wound changes.
--- NOTE | 2025-10-05 13:21 | PM.IDPN ---
Subjective Subjective Date of Service: 10/05/25 Critical Care Time (minutes): 15 Comment: patient no complaints ,not on oxygen Objective Data Labs 10/05/25 05:53 10/05/25 05:53 Labs: Laboratory Results - last 24 hr 10/04/25 10/04/25 10/05/25 16:33 19:51 05:53 WBC 4.0 L RBC 3.76 L Hgb 10.3 L Hct 32.2 L MCV 85.6 MCH 27.4 MCHC 32.0 RDW 15.9 Plt Count 130 L MPV 11.7 Immature Gran % (Auto) 0.5 H Neut % (Auto) 65.9 Lymph % (Auto) 19.9 L [place] % (Auto) 10.9 Eos % (Auto) 2.3 Baso % (Auto) 0.5 Lymph # (Auto) 0.8 L [place] # (Auto) 0.4 Eos # (Auto) 0.1 Baso # (Auto) 0.0 Abs Immat Gran (auto) 0.02 Absolute Neuts (auto) 2.6 Absolute Nucleated RBC 0.000 Nucleated RBC % (auto) 0.0 Hold Purple Top SEE NOTE Sodium 148 H Potassium 3.1 L Chloride 118 H Carbon Dioxide 22 Anion Gap 11 L BUN 36 H Creatinine 1.02 Estim Creat Clear Calc 51.5 Estimated GFR > 60 POC Glucose 151 H 234 H Random Glucose 212 H Calcium 8.3 L Vancomycin Trough 10/05/25 10/05/25 10/05/25 07:19 10:18 11:24 WBC RBC Hgb Hct MCV MCH MCHC RDW Plt Count MPV Immature Gran % (Auto) Neut % (Auto) Lymph % (Auto) [place] % (Auto) Eos % (Auto) Baso % (Auto) Lymph # (Auto) [place] # (Auto) Eos # (Auto) Baso # (Auto) Abs Immat Gran (auto) Absolute Neuts (auto) Absolute Nucleated RBC Nucleated RBC % (auto) Hold Purple Top Sodium Potassium Chloride Carbon Dioxide Anion Gap BUN Creatinine Estim Creat Clear Calc Estimated GFR POC Glucose 201 H 193 H Random Glucose Calcium Vancomycin Trough 15.3 Microbiology Microbiology Results: Microbiology 09/29/25 19:19 Blood - Venous Blood Culture - Final No growth after 5 days. 09/29/25 19:17 Blood - Venous Blood Culture - Final Coag negative Staphylococcus Corynebacterium species 09/29/25 19:39 Urine clean catch - Clean Catch Midstream Urine Culture - Final Escherichia coli Physical Exam Vital Signs: Vital Signs: Last Vital Signs Temp 98.1 F 10/05/25 11:36 Pulse 64 10/05/25 11:36 Resp 16 10/05/25 11:36 BP 135/63 10/05/25 11:36 Pulse Ox 93 10/05/25 11:36 O2 Del Method Room Air 10/05/25 11:36 O2 Flow Rate 2 10/03/25 03:23 BMI result Body Mass Index 24.7 Const: General: cooperative Eyes: General: appearance normal, both eyes and all related structures Resp: Effort & Inspection: normal respiratory effort Cardio: Rate: regular rate Rhythm: regular rhythm GI: Inspection: Yes normal to inspection Extrem: Other: no changes Assessment and Plan Assessment and plan (1) Acute osteomyelitis of sacrum: Status: Acute Assessment and Plan: He has no changes Coagulase negative staph and corynebacterium contaminant blood E coli urine is covered by ertapenem or merepenem also There is no MRSA seen Would give Ertapenem daily for six weeks 1 g daily Weekly CBC and creatinine. Possible po antibiotics to finish. Time Spent With Patient Time: Total time managing care of this patient today ____ minutes.
--- NOTE | 2025-10-05 14:43 | MHC.CM.PN ---
per rounds pt still acute if switched to po antibiotics can be dcd maybe today
[2025-10-05 16:21] LABS: Glucose, Whole Blood 140 mg/dL (60-115)
[2025-10-05 21:07] LABS: Glucose, Whole Blood 197 mg/dL (60-115)
[2025-10-06 04:00] VITALS: BP 140/68; PULSE 72; RESP 18; TEMP 36; O2SAT 95
[2025-10-06 06:38] LABS: Creatinine Clr Calc Pharmacy 51.5; Estimated Glomerular Filt Rate > 60
[2025-10-06 07:20] VITALS: BP 157/71; PULSE 69; RESP 16; TEMP 37.9; O2SAT 92
--- NOTE | 2025-10-06 09:32 | HO.PM.IMPN ---
Subjective Subjective Date of Service: 10/06/25 Interval History: No new issues, no fever, Physical Exam Vital Signs: Vital Signs: Last Vital Signs Temp 100.2 F 10/06/25 07:20 Pulse 69 10/06/25 07:20 Resp 16 10/06/25 07:20 BP 157/71 H 10/06/25 07:20 Pulse Ox 92 10/06/25 07:20 O2 Del Method Room Air 10/06/25 07:20 O2 Flow Rate 2 10/03/25 03:23 BMI result Body Mass Index 24.7 Const: Other: General: alert, oriented to self, o/w confused Resp: CTA bilateral CVS: S1,S2,RRR GI: +BS, NT, no distention Skin: sacral ulcer noted elesewhere, s/p sheyla amputation Neuro: motor grossly intact Psych: appropriate affect Objective Data Active Medications Acetaminophen (Acetaminophen 325 Mg Tablet) 975 mg PO Q6H PRN PRN Reason: Pain, Mild 1-3,fever,headache Last Admin: 10/02/25 10:30 Dose: 975 mg Documented By: TARSHA Acetaminophen (Acetaminophen Supp 650 Mg Supp.Rect) 650 mg [place] Q6H PRN PRN Reason: discomfort/temp >101 Ascorbic Acid (Ascorbic Acid 500 Mg Tablet) 500 mg PO DAILY [facility] Last Admin: 10/05/25 07:48 Dose: 500 mg Documented By: NINO Aspirin (Aspirin 81 Mg Tab.Chew) 81 mg PO DAILY [facility] Last Admin: 10/05/25 07:46 Dose: 81 mg Documented By: NINO Atorvastatin Calcium (Atorvastatin Calcium 20 Mg Tablet) 20 mg PO BEDTIME [facility] Last Admin: 10/05/25 21:40 Dose: 20 mg Documented By: DIANNA Baclofen (Baclofen 10 Mg Tablet) 5 mg PO TID [facility] Last Admin: 10/05/25 21:40 Dose: 5 mg Documented By: DIANNA Bisacodyl (Bisacodyl 10 Mg Supp.Rect) 10 mg [place] DAILY PRN PRN Reason: Constipation Calcium Carbonate (Calcium Carbonate 750 Mg Tab.Chew) 750 mg PO Q4H PRN PRN Reason: Heartburn Dextrose (Dextrose 50 % 25 Gm/50 Ml Syringe) 25 gm IVPUSH Q15M PRN; Protocol PRN Reason: per Hypoglycemia Standing Ord. Docusate Sodium (Docusate Sodium 100 Mg/10 Ml Liquid) 100 mg PO BID [facility] Last Admin: 10/05/25 21:54 Dose: 100 mg Documented By: DIANNA Fluoxetine HCl (Fluoxetine Hcl Oral Solution 20 Mg/5 Ml Solution) 10 mg PO DAILY [facility] Last Admin: 10/05/25 07:46 Dose: 10 mg Documented By: NINO Gabapentin (Gabapentin 400 Mg Capsule) 400 mg PO TID [facility] Last Admin: 10/05/25 21:40 Dose: 400 mg Documented By: DIANNA Glipizide (Glipizide 5 Mg Tablet) 5 mg PO DAILY [facility] Last Admin: 10/05/25 07:46 Dose: 5 mg Documented By: NINO Glucose (Glucose Gel 15 Gm Gel..Gram.) 15 gm PO Q15M PRN; Protocol PRN Reason: per Hypoglycemia Standing Ord. Heparin Sodium (Porcine) (Heparin Sodium,Porcine 5,000 Unit/Ml Vial) 5,000 unit SUBCUT Q12H [facility] Last Admin: 10/06/25 03:00 Dose: 5,000 unit Documented By: DIANNA Ceftriaxone Sodium 2 gm/ (Sodium Chloride) 50 mls @ 100 mls/hr IV Q24H [facility] Last Infusion: 10/05/25 14:50 Dose: Infused Documented By: NINO Vancomycin HCl 1,250 mg/ (Sodium Chloride) 250 mls @ 166.667 mls/hr IV Q24H [facility] Last Infusion: 10/05/25 12:44 Dose: Infused Documented By: NINO Insulin Human Lispro (Insulin Lispro 100 Unit/Ml 3 Ml Vial) 0 unit SUBCUT QIDACHS [facility]; Protocol Last Admin: 10/05/25 21:42 Dose: 2 unit Documented By: DIANNA Comments: Lactulose (Lactulose 20 Gm/30 Ml Solution) 20 gm PO DAILY PRN PRN Reason: Constipation Loperamide HCl (Loperamide Hcl 2 Mg Capsule) 2 mg PO Q4H PRN PRN Reason: Diarrhea Magnesium Hydroxide (Milk Of Magnesia 30 Ml Oral.Susp) 30 ml PO DAILY PRN PRN Reason: Constipation Magnesium Oxide (Magnesium Oxide 400 Mg Tablet) 400 mg PO DAILY [facility] Last Admin: 10/05/25 07:47 Dose: 400 mg Documented By: NINO Melatonin (Melatonin 3 Mg Tablet) 6 mg PO BEDTIME PRN PRN Reason: Insomnia Multivitamins/Vitamin C (Multivitamin Tablet) 1 tab PO DAILY [facility] Last Admin: 10/05/25 07:47 Dose: 1 tab Documented By: NINO Naloxone HCl (Naloxone Hcl 0.4 Mg/Ml Vial) 0.4 mg IM Q3M PRN PRN Reason: Opioid Overdose Ondansetron HCl (Ondansetron Odt 4 Mg Tab.Rapdis) 4 mg TRANSLINGU Q8H PRN PRN Reason: Nausea and Vomiting Pharmacy Consult (Consult Rx Vancomycin Dosing) 1 each MISCELLANE DAILY PRN PRN Reason: Consult order Polyethylene Glycol (Polyethylene Glycol 3350 17 Gm Powd.Pack) 17 gm PO BID [facility] Last Admin: 10/05/25 21:57 Dose: Not Given Documented By: DIANNA Non-Admin Reason: Patient Condition Contraindication Risperidone (Risperidone 0.25 Mg Tablet) 0.25 mg PO BEDTIME [facility] Last Admin: 10/05/25 21:40 Dose: 0.25 mg Documented By: DIANNA Senna (Sennosides 8.6 Mg Tablet) 8.6 mg PO BID [facility] Last Admin: 10/05/25 21:40 Dose: 8.6 mg Documented By: DIANNA Sodium Biphosphate/Sodium Phosphate (Sodium Phosphate,[place]-Dibasic 133 Ml Enema) 118 ml [place] DAILY PRN PRN Reason: Constipation Sodium Chloride (0.9 % Sodium Chloride Flush 3 Ml Syringe) 3 ml IVFLUSH QSHIFT [facility] Last Admin: 10/05/25 21:56 Dose: 3 ml Documented By: DIANNA Labs 10/05/25 05:53 10/06/25 05:54 Labs: Laboratory Results - last 24 hr 10/05/25 10/05/25 10/05/25 05:53 10:18 11:24 MCV 85.6 MCH 27.4 MCHC 32.0 RDW 15.9 Plt Count 130 L MPV 11.7 Immature Gran % (Auto) 0.5 H Neut % (Auto) 65.9 Lymph % (Auto) 19.9 L [place] % (Auto) 10.9 Eos % (Auto) 2.3 Baso % (Auto) 0.5 Lymph # (Auto) 0.8 L [place] # (Auto) 0.4 Eos # (Auto) 0.1 Baso # (Auto) 0.0 Abs Immat Gran (auto) 0.02 Absolute Neuts (auto) 2.6 Absolute Nucleated RBC 0.000 Nucleated RBC % (auto) 0.0 Anion Gap 11 L Estim Creat Clear Calc 51.5 Estimated GFR > 60 POC Glucose 193 H Random Glucose 212 H Calcium 8.3 L Vancomycin Trough 15.3 Random Vancomycin 10/05/25 10/05/25 10/06/25 16:18 21:03 05:54 MCV MCH MCHC RDW Plt Count MPV Immature Gran % (Auto) Neut % (Auto) Lymph % (Auto) [place] % (Auto) Eos % (Auto) Baso % (Auto) Lymph # (Auto) [place] # (Auto) Eos # (Auto) Baso # (Auto) Abs Immat Gran (auto) Absolute Neuts (auto) Absolute Nucleated RBC Nucleated RBC % (auto) Anion Gap Estim Creat Clear Calc 51.5 Estimated GFR > 60 POC Glucose 140 H 197 H Random Glucose Calcium Vancomycin Trough Random Vancomycin 10/06/25 08:49 MCV MCH MCHC RDW Plt Count MPV Immature Gran % (Auto) Neut % (Auto) Lymph % (Auto) [place] % (Auto) Eos % (Auto) Baso % (Auto) Lymph # (Auto) [place] # (Auto) Eos # (Auto) Baso # (Auto) Abs Immat Gran (auto) Absolute Neuts (auto) Absolute Nucleated RBC Nucleated RBC % (auto) Anion Gap Estim Creat Clear Calc Estimated GFR POC Glucose Random Glucose Calcium Vancomycin Trough Random Vancomycin 13.2 L Microbiology Microbiology Results: Microbiology 09/29/25 19:19 Blood Culture - Final Blood - Venous No growth after 5 days. Assessment and Plan (1) Acute osteomyelitis of sacrum: Status: Acute (2) Metabolic encephalopathy: Status: Acute Plan 75-year-old male with a history of dementia, hyperlipidemia, hypertension, depression, diabetes with diabetic neuropathy, personality disorder, essential tremor, left BKA, right AKA, and failure to thrive, who presented to the ED via EMS from his nursing facility for decreased responsiveness. Work up has revealed infected sacral uler and possible osteomylitis. HypOtension, nomal lactic, no other SIRs criteri, improved with IVF, albumin and midodrine Hypotension now resolved. stopped IVF and dc midodrine Acute metabolic encephalopthy with underlying advanced dementia possibly d/t underlying infection and dehydration. treating underlying infection, at baseline Sacral ulcer with Osteomylitis, sinus tract vancomycin (changed to Doxy) and zosyn started 09/30, changed Zosyn to ceftriaxone for e. coli uti seen by surgery no indication for intervention wound nurse consult ID is recommending possible bone or deep tissue biopsy follow culture, so far negative exept coag neg staph x 1, likely contamination and E. coli in urine pansensitive Will check with surgery to see if Biopsy feasible E.coli UTI, ceftriaxone as above HypErnatremia d/t dehydration , resolved with IVF ?Acute cholecystitis on CT, ruled out on US nontender on exam LFTS normal general surgery saw, clinically doesn't appear to have cholecysitis, and US showed contracted galbladder and cholelithiasis avascular necrosis on CT ?chronic no pain with palpation of the hip general surgery consult as above proctitis on CT ?stercoral colitis/constipation, Abx as aboe continue bowel regimen surgery consult as above DM with complication of PVD s/p BKA, hyperglycemia SSI hold glipizide diabetic diet HLD continue home meds HTN BP soft, hold home meds depression continue home meds FTT - nutrition consult DVT prophylaxis: heparin Discuss Discharge Abx with ID Quality Stroke Does the patient have a stroke diagnosis?: No VTE Prior VTE?: No VTE Risk Level:: Medical - moderate - high VTE Device Contraindication: Treatment Not Indicated VTE Drug Contraindication: N/A - Med Ordered
[2025-10-06 09:39] LABS: Glucose, Whole Blood 214 mg/dL (60-115)
[2025-10-06] MEDS: 0.9 % Sodium Chloride Flush 3 ML SYRINGE IVFLUSH ×3 (09:40→22:00)
[2025-10-06] MEDS: FLUoxetine HCl Oral Solution 20 MG/5 ML SOLUTION 10 MG PO (09:44)
[2025-10-06 11:25] VITALS: BP 142/66; PULSE 69; RESP 16; TEMP 37.5; O2SAT 94
[2025-10-06 12:09] LABS: Glucose, Whole Blood 218 mg/dL (60-115)
[2025-10-06 15:33] VITALS: BP 134/63; PULSE 66; RESP 18; TEMP 36.9; O2SAT 94
[2025-10-06 16:24] LABS: Glucose, Whole Blood 172 mg/dL (60-115)
[2025-10-06 20:00] VITALS: BP 134/67; PULSE 68; RESP 18; TEMP 36.4; O2SAT 93
[2025-10-06 20:03] LABS: Glucose, Whole Blood 167 mg/dL (60-115)
[2025-10-07] VITALS (8 sets, daily range): BP systolic 133–166; BP diastolic 60–74; PULSE 66–77; RESP 14–18; TEMP 36.4–38.7; O2SAT 92–95
[2025-10-07 07:13] LABS: Creatinine Clr Calc Pharmacy 45.3; Estimated Glomerular Filt Rate > 60
--- NOTE | 2025-10-07 07:31 | PC.NURSE ---
patient very lethargic,unable to wake up,Temp 101.7,unable to administer meds po,patient not eating or drinking fluids well,Dr. Schultz notified,BS 258 ,Dr. Schultz made aware
[2025-10-07] MEDS: Acetaminophen Supp 650 MG SUPP.RECT PR (07:42)
[2025-10-07] MEDS: 0.9 % Sodium Chloride Flush 3 ML SYRINGE IVFLUSH (07:50)
[2025-10-07 08:16] LABS: Anion Gap 13 (12-20); Carbon Dioxide 24 mmol/L (22-29); Chloride 121 mmol/L (96-108); Potassium 3.5 mmol/L (3.3-5.1); Sodium 154 mmol/L (135-145)
[2025-10-07 08:38] LABS: Glucose, Whole Blood 258 mg/dL (60-115)
[2025-10-07] MEDS: Lactated Ringers 1,000 ML 125 ML IVCONT (09:01)
[2025-10-07 09:29] LABS: VBG HCO3 26 mmol/L (22-26); VBG O2 % Saturation 100.0 %
[2025-10-07 09:32] LABS: Venous Blood Gas Refer to POC result
[2025-10-07 09:37] LABS: Hematocrit 36.2 % (42.0-52.0); Hemoglobin 11.1 g/dl (14.0-18.0); Mean Corpuscular HGB Conc 30.7 g/dl (31.0-36.0); Mean Corpuscular Hemoglobin 27.2 pg (27.0-33.0); Mean Corpuscular Volume 88.7 fL (80.0-98.0); NRBC Abs Auto 0.000 X10*3/uL (0.0-0.012); NRBC Pct Auto 0.0 /100WBC (0.0-0.2); Platelet Count 191 X10*3/uL (160-400); Red Blood Count 4.08 X10*6/uL (4.60-5.80); White Blood Count 4.1 X10*3/uL (4.8-10.8)
--- NOTE | 2025-10-07 10:19 | HO.PM.IMPN ---
Subjective Subjective Date of Service: 10/08/25 Interval History: Sleepy, fever overnight, sodium is up to 158 Physical Exam Vital Signs: Vital Signs: Last Vital Signs Temp 100.8 F H 10/07/25 08:40 Pulse 77 10/07/25 07:30 Resp 14 10/07/25 07:30 BP 166/72 H 10/07/25 07:30 Pulse Ox 92 10/07/25 07:30 O2 Del Method Room Air 10/07/25 07:30 O2 Flow Rate 2 10/03/25 03:23 BMI result Body Mass Index 24.7 Const: Other: General: alert, oriented to self, o/w confused Resp: CTA bilateral CVS: S1,S2,RRR GI: +BS, NT, no distention Skin: sacral ulcer noted elesewhere, s/p sheyla amputation Neuro: motor grossly intact Psych: appropriate affect Objective Data Active Medications Acetaminophen (Acetaminophen 325 Mg Tablet) 975 mg PO Q6H PRN PRN Reason: Pain, Mild 1-3,fever,headache Last Admin: 10/02/25 10:30 Dose: 975 mg Documented By: TARSHA Acetaminophen (Acetaminophen Supp 650 Mg Supp.Rect) 650 mg [place] Q6H PRN PRN Reason: discomfort/temp >101 Last Admin: 10/07/25 07:42 Dose: 650 mg Documented By: REGINALDO Ascorbic Acid (Ascorbic Acid 500 Mg Tablet) 500 mg PO DAILY [facility] Last Admin: 10/07/25 07:52 Dose: Not Given Documented By: REGINALDO Non-Admin Reason: pt lethargic Aspirin (Aspirin 81 Mg Tab.Chew) 81 mg PO DAILY [facility] Last Admin: 10/07/25 07:52 Dose: Not Given Documented By: REGINALDO Non-Admin Reason: pt lethargic Atorvastatin Calcium (Atorvastatin Calcium 20 Mg Tablet) 20 mg PO BEDTIME [facility] Last Admin: 10/06/25 22:00 Dose: 20 mg Documented By: DIANNA Baclofen (Baclofen 10 Mg Tablet) 5 mg PO TID [facility] Last Admin: 10/07/25 07:53 Dose: Not Given Documented By: REGINALDO Non-Admin Reason: pt lethargic Bisacodyl (Bisacodyl 10 Mg Supp.Rect) 10 mg [place] DAILY PRN PRN Reason: Constipation Calcium Carbonate (Calcium Carbonate 750 Mg Tab.Chew) 750 mg PO Q4H PRN PRN Reason: Heartburn Dextrose (Dextrose 50 % 25 Gm/50 Ml Syringe) 25 gm IVPUSH Q15M PRN; Protocol PRN Reason: per Hypoglycemia Standing Ord. Docusate Sodium (Docusate Sodium 100 Mg/10 Ml Liquid) 100 mg PO BID [facility] Last Admin: 10/07/25 07:53 Dose: Not Given Documented By: REGINALDO Non-Admin Reason: pt lethargic Fluoxetine HCl (Fluoxetine Hcl Oral Solution 20 Mg/5 Ml Solution) 10 mg PO DAILY [facility] Last Admin: 10/07/25 07:54 Dose: Not Given Documented By: REGINALDO Non-Admin Reason: pt lethargic Gabapentin (Gabapentin 400 Mg Capsule) 400 mg PO TID [facility] Last Admin: 10/07/25 09:00 Dose: Not Given Documented By: REGINALDO Non-Admin Reason: pt lethargic Glipizide (Glipizide 5 Mg Tablet) 5 mg PO DAILY [facility] Last Admin: 10/07/25 07:54 Dose: Not Given Documented By: REGINALDO Non-Admin Reason: pt lethargic Glucose (Glucose Gel 15 Gm Gel..Gram.) 15 gm PO Q15M PRN; Protocol PRN Reason: per Hypoglycemia Standing Ord. Heparin Sodium (Porcine) (Heparin Sodium,Porcine 5,000 Unit/Ml Vial) 5,000 unit SUBCUT Q12H [facility] Last Admin: 10/07/25 02:52 Dose: 5,000 unit Documented By: DIANNA Ceftriaxone Sodium 2 gm/ (Sodium Chloride) 50 mls @ 100 mls/hr IV Q24H [facility] Last Infusion: 10/06/25 14:41 Dose: Infused Documented By: REGINALDO Vancomycin HCl 1,250 mg/ (Sodium Chloride) 250 mls @ 166.667 mls/hr IV Q24H [facility] Last Infusion: 10/06/25 13:34 Dose: Infused Documented By: REGINALDO Lactated Ringer's (Lr) 1,000 mls @ 125 mls/hr IVCONT .Q8H [facility] Last Admin: 10/07/25 09:01 Dose: 125 mls/hr Documented By: REGINALDO Insulin Human Lispro (Insulin Lispro 100 Unit/Ml 3 Ml Vial) 0 unit SUBCUT QIDACHS [facility]; Protocol Last Admin: 10/07/25 07:49 Dose: Not Given Documented By: REGINALDO Non-Admin Reason: pt lethargic not able to eat Lactulose (Lactulose 20 Gm/30 Ml Solution) 20 gm PO DAILY PRN PRN Reason: Constipation Loperamide HCl (Loperamide Hcl 2 Mg Capsule) 2 mg PO Q4H PRN PRN Reason: Diarrhea Magnesium Hydroxide (Milk Of Magnesia 30 Ml Oral.Susp) 30 ml PO DAILY PRN PRN Reason: Constipation Magnesium Oxide (Magnesium Oxide 400 Mg Tablet) 400 mg PO DAILY [facility] Last Admin: 10/07/25 07:54 Dose: Not Given Documented By: REGINALDO Non-Admin Reason: pt lethargic Melatonin (Melatonin 3 Mg Tablet) 6 mg PO BEDTIME PRN PRN Reason: Insomnia Multivitamins/Vitamin C (Multivitamin Tablet) 1 tab PO DAILY [facility] Last Admin: 10/07/25 07:55 Dose: Not Given Documented By: REGINALDO Non-Admin Reason: pt lethargic Naloxone HCl (Naloxone Hcl 0.4 Mg/Ml Vial) 0.4 mg IM Q3M PRN PRN Reason: Opioid Overdose Ondansetron HCl (Ondansetron Odt 4 Mg Tab.Rapdis) 4 mg TRANSLINGU Q8H PRN PRN Reason: Nausea and Vomiting Pharmacy Consult (Consult Rx Vancomycin Dosing) 1 each MISCELLANE DAILY PRN PRN Reason: Consult order Polyethylene Glycol (Polyethylene Glycol 3350 17 Gm Powd.Pack) 17 gm PO BID [facility] Last Admin: 10/07/25 07:56 Dose: Not Given Documented By: REGINALDO Non-Admin Reason: pt lethargic Risperidone (Risperidone 0.25 Mg Tablet) 0.25 mg PO BEDTIME [facility] Last Admin: 10/06/25 22:00 Dose: 0.25 mg Documented By: DIANNA Senna (Sennosides 8.6 Mg Tablet) 8.6 mg PO BID [facility] Last Admin: 10/07/25 07:56 Dose: Not Given Documented By: REGINALDO Non-Admin Reason: pt lethargic Sodium Biphosphate/Sodium Phosphate (Sodium Phosphate,[place]-Dibasic 133 Ml Enema) 118 ml [place] DAILY PRN PRN Reason: Constipation Sodium Chloride (0.9 % Sodium Chloride Flush 3 Ml Syringe) 3 ml IVFLUSH QSHIFT [facility] Last Admin: 10/07/25 07:50 Dose: 3 ml Documented By: BEIT Labs 10/08/25 05:53 10/08/25 05:53 Labs: Laboratory Results - last 24 hr 10/06/25 10/06/25 10/06/25 12:03 16:19 19:49 MCV MCH MCHC RDW Plt Count MPV Absolute Nucleated RBC Nucleated RBC % (auto) VBG pH VBG pCO2 VBG pO2 VBG HCO3 VBG O2 Saturation VBG Base Excess Anion Gap Estim Creat Clear Calc Estimated GFR POC Glucose 218 H 172 H 167 H Random Vancomycin 10/07/25 10/07/25 10/07/25 06:15 07:26 09:09 MCV 88.7 MCH 27.2 MCHC 30.7 L RDW 16.6 H Plt Count 191 D MPV 11.9 Absolute Nucleated RBC 0.000 Nucleated RBC % (auto) 0.0 VBG pH VBG pCO2 VBG pO2 VBG HCO3 VBG O2 Saturation VBG Base Excess Anion Gap 13 Estim Creat Clear Calc 45.3 Estimated GFR > 60 POC Glucose 258 H Random Vancomycin 10/07/25 10/07/25 09:10 09:22 MCV MCH MCHC RDW Plt Count MPV Absolute Nucleated RBC Nucleated RBC % (auto) VBG pH 7.44 H VBG pCO2 37 VBG pO2 88 VBG HCO3 26 VBG O2 Saturation 100.0 VBG Base Excess 2.1 Anion Gap Estim Creat Clear Calc Estimated GFR POC Glucose Random Vancomycin 13.6 L Microbiology Microbiology Results: Microbiology 09/29/25 19:19 Blood Culture - Final Blood - Venous No growth after 5 days. Assessment and Plan (1) Acute osteomyelitis of sacrum: Status: Acute (2) Metabolic encephalopathy: Status: Acute Plan 75-year-old male with a history of dementia, hyperlipidemia, hypertension, depression, diabetes with diabetic neuropathy, personality disorder, essential tremor, left BKA, right AKA, and failure to thrive, who presented to the ED via EMS from his nursing facility for decreased responsiveness. Work up has revealed infected sacral uler and possible osteomylitis. HypOtension, nomal lactic, no other SIRs criteri, improved with IVF, albumin and midodrine Hypotension now resolved. stopped IVF and dc midodrine Acute metabolic encephalopthy with underlying advanced dementia possibly d/t underlying infection and dehydration and now hypernatremia treating underlying infection, IVF and closely monitor sodium Sacral ulcer with Osteomylitis, sinus tract, On vancomycin and Ceftriaxone, changing to meropenem , continue vanc for now blood culture repeated today Seen by surgery no indication for intervention wound nurse consult Bone biopsy was considered but unlikely to change managment. follow culture, so far negative exept coag neg staph x 1, likely contamination and E. coli in urine pansensitive ID recommends Meropenem at discharge. DC vanco if repeat culture negative at 48 E.coli UTI, Abx as above HypErnatremia d/t dehydration d/t poor oral intake IVF as above ?Acute cholecystitis on CT, ruled out on US nontender on exam LFTS normal general surgery saw, clinically doesn't appear to have cholecysitis, and US showed contracted galbladder and cholelithiasis avascular necrosis on CT ?chronic no pain with palpation of the hip proctitis on CT ?stercoral colitis/constipation, Abx as aboe continue bowel regimen surgery consult as above DM with complication of PVD s/p BKA, hyperglycemia SSI hold glipizide diabetic diet HLD continue home meds HTN BP on high side depression continue home meds FTT - nutrition consult DVT prophylaxis: heparin Discuss Discharge Abx with ID Lethargic: keep NPO for now There is no medicare contact specialist listed Quality Stroke Does the patient have a stroke diagnosis?: No VTE Prior VTE?: No VTE Risk Level:: Medical - moderate - high VTE Device Contraindication: Treatment Not Indicated VTE Drug Contraindication: N/A - Med Ordered
[2025-10-07 11:29] LABS: Glucose, Whole Blood 267 mg/dL (60-115)
--- NOTE | 2025-10-07 15:19 | PC.NURSE ---
patient sleeping,unable to feed patient,moans with repositioning
--- NOTE | 2025-10-07 15:58 | MHC.CM.PN ---
requesting contact information for next of kin. Patient w/ advanced dementia. Per [facility] RN, no HCP and no contacts on file, no alternate decision maker. Requested call back from [facility] to discuss. Per MD, patient unable to make decisions or name HCP at this time. Will await call back from AOD.
[2025-10-07 16:26] LABS: Glucose, Whole Blood 245 mg/dL (60-115)
--- NOTE | 2025-10-07 16:37 | PC.NURSE ---
Patient still lethargic but answered thelma ,can you hear me? and went back to sleep
[2025-10-07 16:56] LABS: Anion Gap 10 (12-20); Carbon Dioxide 23 mmol/L (22-29); Chloride 123 mmol/L (96-108); Potassium 3.3 mmol/L (3.3-5.1); Sodium 153 mmol/L (135-145)
[2025-10-07 20:05] LABS: Glucose, Whole Blood 233 mg/dL (60-115)
[2025-10-08 02:59] VITALS: BP 134/67; PULSE 67; RESP 18; TEMP 36.6; O2SAT 93
[2025-10-08 06:41] LABS: Hematocrit 32.3 % (42.0-52.0); Hemoglobin 10.2 g/dl (14.0-18.0); Mean Corpuscular HGB Conc 31.6 g/dl (31.0-36.0); Mean Corpuscular Hemoglobin 27.5 pg (27.0-33.0); Mean Corpuscular Volume 87.1 fL (80.0-98.0); NRBC Abs Auto 0.000 X10*3/uL (0.0-0.012); NRBC Pct Auto 0.0 /100WBC (0.0-0.2); Platelet Count 167 X10*3/uL (160-400); Red Blood Count 3.71 X10*6/uL (4.60-5.80); White Blood Count 5.2 X10*3/uL (4.8-10.8)
[2025-10-08 07:09] LABS: Anion Gap 10 (12-20); Blood Urea Nitrogen 30 mg/dL (9-16); Calcium 7.7 mg/dL (8.4-10.2); Carbon Dioxide 25 mmol/L (22-29); Chloride 116 mmol/L (96-108); Creatinine Clr Calc Pharmacy 52.6; Estimated Glomerular Filt Rate > 60; Potassium 3.2 mmol/L (3.3-5.1); Sodium 148 mmol/L (135-145)
[2025-10-08 07:29] VITALS: BP 165/72; PULSE 69; RESP 18; TEMP 37.2; O2SAT 96
[2025-10-08 08:03] LABS: Glucose, Whole Blood 341 mg/dL (60-115)
[2025-10-08] MEDS: 0.9 % Sodium Chloride Flush 3 ML SYRINGE IVFLUSH ×2 (08:19→15:53)
--- NOTE | 2025-10-08 09:52 | HE.PHANOTE ---
DAVID Changed dose to 1500mg Q24H per subtheraprutic trough. Pt's renal function okay and steady. Next trough to be pull 10/09 @0900 and target trough 14.9, AUC 556.
[2025-10-08] MEDS: FLUoxetine HCl Oral Solution 20 MG/5 ML SOLUTION 10 MG PO (10:16)
[2025-10-08] MEDS: Potassium Chloride Packet 20 MEQ PACKET 40 MEQ PO (10:18)
--- NOTE | 2025-10-08 10:23 | P.PNIM_ITS ---
Subjective Subjective Date of Service: 10/08/25 Interval History: He is awake, alert and sodium is going down Physical Exam 2 Vital Signs: Vital Signs: Last Vital Signs Temp 98.9 F 10/08/25 07:29 Pulse 69 10/08/25 07:29 Resp 18 10/08/25 07:29 BP 165/72 H 10/08/25 07:29 Pulse Ox 96 10/08/25 07:29 O2 Del Method Room Air 10/08/25 07:29 O2 Flow Rate 2 10/03/25 03:23 BMI result Body Mass Index 24.7 Const: Other: General: alert, oriented to self, o/w confused Resp: CTA bilateral CVS: S1,S2,RRR GI: +BS, NT, no distention Skin: sacral ulcer noted elesewhere, s/p sheyla amputation Neuro: motor grossly intact Psych: appropriate affect Objective Data Active Medications Acetaminophen (Acetaminophen 325 Mg Tablet) 975 mg PO Q6H PRN PRN Reason: Pain, Mild 1-3,fever,headache Last Admin: 10/02/25 10:30 Dose: 975 mg Documented By: TARSHA Acetaminophen (Acetaminophen Supp 650 Mg Supp.Rect) 650 mg MN Q6H PRN PRN Reason: discomfort/temp >101 Last Admin: 10/07/25 07:42 Dose: 650 mg Documented By: REGINALDO Ascorbic Acid (Ascorbic Acid 500 Mg Tablet) 500 mg PO DAILY [facility] Last Admin: 10/08/25 10:17 Dose: 500 mg Documented By: KAVIN Aspirin (Aspirin 81 Mg Tab.Chew) 81 mg PO DAILY [facility] Last Admin: 10/08/25 10:19 Dose: 81 mg Documented By: KAVIN Atorvastatin Calcium (Atorvastatin Calcium 20 Mg Tablet) 20 mg PO BEDTIME [facility] Last Admin: 10/07/25 21:02 Dose: Not Given Documented By: SEEMARISAni Non-Admin Reason: pt too lethargic Baclofen (Baclofen 10 Mg Tablet) 5 mg PO TID [facility] Last Admin: 10/08/25 10:17 Dose: 5 mg Documented By: KAVIN Bisacodyl (Bisacodyl 10 Mg Supp.Rect) 10 mg MN DAILY PRN PRN Reason: Constipation Calcium Carbonate (Calcium Carbonate 750 Mg Tab.Chew) 750 mg PO Q4H PRN PRN Reason: Heartburn Dextrose (Dextrose 50 % 25 Gm/50 Ml Syringe) 25 gm IVPUSH Q15M PRN; Protocol PRN Reason: per Hypoglycemia Standing Ord. Docusate Sodium (Docusate Sodium 100 Mg/10 Ml Liquid) 100 mg PO BID [facility] Last Admin: 10/08/25 10:16 Dose: 100 mg Documented By: KAVIN Fluoxetine HCl (Fluoxetine Hcl Oral Solution 20 Mg/5 Ml Solution) 10 mg PO DAILY [facility] Last Admin: 10/08/25 10:16 Dose: 10 mg Documented By: KAVIN Gabapentin (Gabapentin 400 Mg Capsule) 400 mg PO TID [facility] Last Admin: 10/08/25 10:17 Dose: 400 mg Documented By: KAVIN Glipizide (Glipizide 5 Mg Tablet) 5 mg PO DAILY [facility] Last Admin: 10/08/25 10:19 Dose: 5 mg Documented By: KAVIN Glucose (Glucose Gel 15 Gm Gel..Gram.) 15 gm PO Q15M PRN; Protocol PRN Reason: per Hypoglycemia Standing Ord. Heparin Sodium (Porcine) (Heparin Sodium,Porcine 5,000 Unit/Ml Vial) 5,000 unit SUBCUT Q12H [facility] Last Admin: 10/08/25 01:54 Dose: 5,000 unit Documented By: KADIE Dextrose (D5w) 1,000 mls @ 150 mls/hr IVCONT .Q6H40M [facility] Last Admin: 10/08/25 09:59 Dose: 150 mls/hr Documented By: KAVIN Vancomycin HCl 1,500 mg/ (Sodium Chloride) 500 mls @ 333.333 mls/hr IV Q24H [facility] Insulin Glargine (Insulin Glargine,Hum.Rec.Anlog 100 Unit/Ml 10 Ml Vial) 10 unit SUBCUT DAILY [facility] Insulin Human Lispro (Insulin Lispro 100 Unit/Ml 3 Ml Vial) 0 unit SUBCUT QIDACHS [facility]; Protocol Last Admin: 10/08/25 08:18 Dose: 8 unit Documented By: KAVIN Lactulose (Lactulose 20 Gm/30 Ml Solution) 20 gm PO DAILY PRN PRN Reason: Constipation Loperamide HCl (Loperamide Hcl 2 Mg Capsule) 2 mg PO Q4H PRN PRN Reason: Diarrhea Magnesium Hydroxide (Milk Of Magnesia 30 Ml Oral.Susp) 30 ml PO DAILY PRN PRN Reason: Constipation Magnesium Oxide (Magnesium Oxide 400 Mg Tablet) 400 mg PO DAILY [facility] Last Admin: 10/08/25 10:17 Dose: 400 mg Documented By: KAVIN Melatonin (Melatonin 3 Mg Tablet) 6 mg PO BEDTIME PRN PRN Reason: Insomnia Meropenem (Meropenem 1 Gm Vial) 1 gm IVPUSH Q8H [facility] Last Admin: 10/08/25 05:11 Dose: 1 gm Documented By: KADIE Morphine Sulfate (Morphine Sulfate 4 Mg/Ml Cartridge) 2 mg IVPUSH Q4H PRN; Protocol PRN Reason: Pain, Severe (Pain Scale 7-10) Multivitamins/Vitamin C (Multivitamin Tablet) 1 tab PO DAILY [facility] Last Admin: 10/08/25 10:19 Dose: 1 tab Documented By: KAVIN Naloxone HCl (Naloxone Hcl 0.4 Mg/Ml Vial) 0.4 mg IM Q3M PRN PRN Reason: Opioid Overdose Ondansetron HCl (Ondansetron Odt 4 Mg Tab.Rapdis) 4 mg TRANSLINGU Q8H PRN PRN Reason: Nausea and Vomiting Pharmacy Consult (Consult Rx Vancomycin Dosing) 1 each MISCELLANE DAILY PRN PRN Reason: Consult order Polyethylene Glycol (Polyethylene Glycol 3350 17 Gm Powd.Pack) 17 gm PO BID [facility] Last Admin: 10/08/25 10:17 Dose: 17 gm Documented By: KAVIN Risperidone (Risperidone 0.25 Mg Tablet) 0.25 mg PO BEDTIME [facility] Last Admin: 10/07/25 21:04 Dose: Not Given Documented By: KADIE Non-Admin Reason: pt too lethargic Senna (Sennosides 8.6 Mg Tablet) 8.6 mg PO BID [facility] Last Admin: 10/08/25 10:17 Dose: 8.6 mg Documented By: KAVIN Sodium Biphosphate/Sodium Phosphate (Sodium Phosphate,[place]-Dibasic 133 Ml Enema) 118 ml MN DAILY PRN PRN Reason: Constipation Sodium Chloride (0.9 % Sodium Chloride Flush 3 Ml Syringe) 3 ml IVFLUSH QSHIFT [facility] Last Admin: 10/08/25 08:19 Dose: 3 ml Documented By: KAVIN Labs 10/08/25 05:53 10/08/25 05:53 Labs: Laboratory Results - last 24 hr 10/07/25 10/07/25 10/07/25 11:14 16:18 16:33 MCV MCH MCHC RDW Plt Count MPV Absolute Nucleated RBC Nucleated RBC % (auto) Hold Purple Top SEE NOTE Anion Gap 10 L Estim Creat Clear Calc Estimated GFR POC Glucose 267 H 245 H Random Glucose Calcium Random Vancomycin 10/07/25 10/08/25 10/08/25 19:56 05:53 07:32 MCV 87.1 MCH 27.5 MCHC 31.6 RDW 16.3 H Plt Count 167 MPV 11.8 Absolute Nucleated RBC 0.000 Nucleated RBC % (auto) 0.0 Hold Purple Top Anion Gap 10 L Estim Creat Clear Calc 52.6 Estimated GFR > 60 POC Glucose 233 H 341 H Random Glucose 357 H* Calcium 7.7 L D Random Vancomycin 10/08/25 09:15 MCV MCH MCHC RDW Plt Count MPV Absolute Nucleated RBC Nucleated RBC % (auto) Hold Purple Top Anion Gap Estim Creat Clear Calc Estimated GFR POC Glucose Random Glucose Calcium Random Vancomycin 12.2 L Microbiology Microbiology Results: Microbiology 09/29/25 19:19 Blood Culture - Final Blood - Venous No growth after 5 days. Assessment and Plan (1) Acute osteomyelitis of sacrum: Status: Acute (2) Metabolic encephalopathy: Status: Acute Plan 75-year-old male with a history of dementia, hyperlipidemia, hypertension, depression, diabetes with diabetic neuropathy, personality disorder, essential tremor, left BKA, right AKA, and failure to thrive, who presented to the ED via EMS from his nursing facility for decreased responsiveness. Work up has revealed infected sacral uler and possible osteomylitis, and UTI HypOtension on presentation, nomal lactic, no other SIRs criteri. Resolved with with IVF, albumin and midodrine, midodrine ultimately stopped Acute metabolic encephalopthy, likely from infection and electrolytes abnormalities, returning to baseline with sodium being corrected Sacral ulcer with possible Osteomylitis, sinus tract. Initially treated with Vanco and Zosyn, then changed to Ceftriaxone to cover E. coli UTI. Blood cultures grew contaminated staph. Repeat cultures are pending. Bone Biopsy consider but unlikely to change course. ID recommend Meropenem at [place], last fever was yesterday, repat blood cutlure negative at 24, if negative at 48, stop Vanco and transition to Meropenem alone for discharge E.coli UTI, Meropenem as above HypErnatremia d/t dehydration d/t poor oral intake, D5 and follow sodium level ?Acute cholecystitis on CT, ruled out on US nontender on exam LFTS normal general surgery saw, clinically doesn't appear to have cholecysitis, and US showed contracted galbladder and cholelithiasis. No indication Avascular necrosis on CT ?chronic no pain with palpation of the hip Proctitis on CT ?stercoral colitis/constipation, Abx as aboe continue bowel regimen DM with complication of PVD s/p BKA, hyperglycemia Add Lantus Glipizide on hold inconsistent eating pattern HLD continue home meds HTN, no on meds, BP on high side. Norvasc 5 daily and adjust as needed Depression continue home meds FTT -nutrition consult DVT prophylaxis: heparin Diebetic diet Quality Stroke Does the patient have a stroke diagnosis?: No VTE Prior VTE?: No VTE Risk Level:: Medical - moderate - high VTE Device Contraindication: Treatment Not Indicated VTE Drug Contraindication: N/A - Med Ordered
--- NOTE | 2025-10-08 11:37 | MHC.CLN ---
Addendum entered by Diann Louis, TRISTIAN 10/08/25 11:40: RECEIVING IV HYDRATION. Original Note: F/U DIET RX: 2000DM PUREED. RECEIVING ENSURE MAX BID TO PROMOTE WOUND HEALING. SUPP PROVIDES 300KCALS, 60G PROTEIN. SKIN WITH STAGE IV PRESSURE INJURY TO COCCYX. NURSE NOTES 10/07 THAT PATIENT LETHARGIC AND NOT EATING/DRINKING. SODIUM CONTINUES ELEVATED AND RANDOM [id number]. FOLLOW FOR PO INTAKE AND WOUND HEALING.
[2025-10-08] MEDS: Insulin Glargine,Hum.rec.anlog 100 UNIT/ML 10 ML VIAL 10 UNIT SUBCUT (11:41)
[2025-10-08 11:45] LABS: Glucose, Whole Blood 316 mg/dL (60-115)
[2025-10-08 12:00] VITALS: BP 126/64; PULSE 65; RESP 16; TEMP 36.2; O2SAT 97
--- NOTE | 2025-10-08 12:26 | P.PNID_ITS ---
Subjective Subjective Date of Service: 10/08/25 Critical Care Time (minutes): 15 Comment: temperature was 101.7 yesterday am he has no complaints,not good historian Objective Data Labs 10/08/25 05:53 10/08/25 05:53 Labs: Laboratory Results - last 24 hr 10/07/25 10/07/25 10/07/25 16:18 16:33 19:56 WBC RBC Hgb Hct MCV MCH MCHC RDW Plt Count MPV Absolute Nucleated RBC Nucleated RBC % (auto) Hold Purple Top SEE NOTE Sodium 153 H Potassium 3.3 Chloride 123 H Carbon Dioxide 23 Anion Gap 10 L BUN Creatinine Estim Creat Clear Calc Estimated GFR POC Glucose 245 H 233 H Random Glucose Calcium Random Vancomycin 10/08/25 10/08/25 10/08/25 05:53 07:32 09:15 WBC 5.2 RBC 3.71 L Hgb 10.2 L Hct 32.3 L MCV 87.1 MCH 27.5 MCHC 31.6 RDW 16.3 H Plt Count 167 MPV 11.8 Absolute Nucleated RBC 0.000 Nucleated RBC % (auto) 0.0 Hold Purple Top Sodium 148 H Potassium 3.2 L Chloride 116 H Carbon Dioxide 25 Anion Gap 10 L BUN 30 H Creatinine 1.00 Estim Creat Clear Calc 52.6 Estimated GFR > 60 POC Glucose 341 H Random Glucose 357 H* Calcium 7.7 L D Random Vancomycin 12.2 L 10/08/25 11:29 WBC RBC Hgb Hct MCV MCH MCHC RDW Plt Count MPV Absolute Nucleated RBC Nucleated RBC % (auto) Hold Purple Top Sodium Potassium Chloride Carbon Dioxide Anion Gap BUN Creatinine Estim Creat Clear Calc Estimated GFR POC Glucose 316 H Random Glucose Calcium Random Vancomycin Microbiology Microbiology Results: Microbiology 10/07/25 09:10 Blood - Venous Blood Culture - Preliminary No growth after 24 hours. 10/07/25 09:10 Blood - Venous Blood Culture - Preliminary No growth after 24 hours. 09/29/25 19:19 Blood - Venous Blood Culture - Final No growth after 5 days. 09/29/25 19:17 Blood - Venous Blood Culture - Final Coag negative Staphylococcus Corynebacterium species 09/29/25 19:39 Urine clean catch - Clean Catch Midstream Urine Culture - Final Escherichia coli Physical Exam 2 Vital Signs: Vital Signs: Last Vital Signs Temp 98.9 F 10/08/25 07:29 Pulse 69 10/08/25 07:29 Resp 18 10/08/25 07:29 BP 165/72 H 10/08/25 07:29 Pulse Ox 96 10/08/25 07:29 O2 Del Method Room Air 10/08/25 07:29 O2 Flow Rate 2 10/03/25 03:23 BMI result Body Mass Index 24.7 Const: General: cooperative HEENT: Head: Yes normal to inspection Face and sinus: Yes normal facial exam Mouth: Normal oral and palatal mucosa present Teeth and gingiva: d entition normal Eyes: General: appearance normal, both eyes and all related structures P upils: Equal, round and reactive pupils present Resp: Effort & Inspection: normal respiratory effort Cardio: Rate: regular rate Rhythm: regular rhythm GI: Palpation (GI): Soft to palpation and nontender : General: Yes no CVA tenderness Back/Spine/Pelvis: Back: no CVA tenderness Skin: General skin exam: no rashes or lesions noted Neuro: General: moves all extremities Cranial nerves: Yes Equal, round and reactive pupils present Extrem: General: Yes normal to inspection Psych: Appearance: grossly normal Assessment and Plan Assessment and plan (1) Acute osteomyelitis of sacrum: Problem details: high grade temperature yesterday and no rash or diarrhea Status: Acute Assessment and Plan: OM sacrum no organism Would await final blood cultures (negative now) watch for signs of allergic reaction/clots Continue Merem May stop Vancomycin unless culture changes in next 24 hours Otherwise IV outpatient Ertapenem for 6 weeks Time Spent With Patient Time: Total time managing care of this patient today ____ minutes.
--- NOTE | 2025-10-08 12:57 | P.PNNP_ITS ---
Subjective Subjective Date of Service: 10/09/25 Interval history: Events noted. Chart reviewed. Physical Exam 2 Vital Signs: Vital Signs: Last Vital Signs Temp 98.9 F 10/08/25 07:29 Pulse 69 10/08/25 07:29 Resp 18 10/08/25 07:29 BP 165/72 H 10/08/25 07:29 Pulse Ox 96 10/08/25 07:29 O2 Del Method Room Air 10/08/25 07:29 O2 Flow Rate 2 10/03/25 03:23 BMI result Body Mass Index 24.7 Awake. Not in distress. Neck supple. Mucosa dry. Lungs is scattered rhonchi. No edema Objective Data Labs 10/09/25 05:59 10/09/25 05:59 Labs: Laboratory Results - last 24 hr 10/07/25 10/07/25 10/07/25 16:18 16:33 19:56 WBC RBC Hgb Hct MCV MCH MCHC RDW Plt Count MPV Absolute Nucleated RBC Nucleated RBC % (auto) Hold Purple Top SEE NOTE Sodium 153 H Potassium 3.3 Chloride 123 H Carbon Dioxide 23 Anion Gap 10 L BUN Creatinine Estim Creat Clear Calc Estimated GFR POC Glucose 245 H 233 H Random Glucose Calcium Random Vancomycin 10/08/25 10/08/25 10/08/25 05:53 07:32 09:15 WBC 5.2 RBC 3.71 L Hgb 10.2 L Hct 32.3 L MCV 87.1 MCH 27.5 MCHC 31.6 RDW 16.3 H Plt Count 167 MPV 11.8 Absolute Nucleated RBC 0.000 Nucleated RBC % (auto) 0.0 Hold Purple Top Sodium 148 H Potassium 3.2 L Chloride 116 H Carbon Dioxide 25 Anion Gap 10 L BUN 30 H Creatinine 1.00 Estim Creat Clear Calc 52.6 Estimated GFR > 60 POC Glucose 341 H Random Glucose 357 H* Calcium 7.7 L D Random Vancomycin 12.2 L 10/08/25 11:29 WBC RBC Hgb Hct MCV MCH MCHC RDW Plt Count MPV Absolute Nucleated RBC Nucleated RBC % (auto) Hold Purple Top Sodium Potassium Chloride Carbon Dioxide Anion Gap BUN Creatinine Estim Creat Clear Calc Estimated GFR POC Glucose 316 H Random Glucose Calcium Random Vancomycin Microbiology Microbiology Results: Microbiology 10/07/25 09:10 Blood - Venous Blood Culture - Preliminary No growth after 24 hours. 10/07/25 09:10 Blood - Venous Blood Culture - Preliminary No growth after 24 hours. 09/29/25 19:19 Blood - Venous Blood Culture - Final No growth after 5 days. 09/29/25 19:17 Blood - Venous Blood Culture - Final Coag negative Staphylococcus Corynebacterium species 09/29/25 19:39 Urine clean catch - Clean Catch Midstream Urine Culture - Final Escherichia coli Procedures Date of Service Date of Service: 10/09/25 Assessment & Plan Assessment and plan (1) Acute hypernatremia: Status: Acute Plan Hypernatremia due to free water deficit. Serum sodium is improving with hypotonic fluids. Keep intake more than output with hypotonic fluids. Renal function is better with hydration. Shall follow with the team Time Spent With Patient Time: Total time managing care of this patient today ____ minutes. Progress Note: Quality Stroke Does the patient have a stroke diagnosis?: No
--- NOTE | 2025-10-08 13:25 | HO.WOUND ---
Wound Consult: follow up 75yr old?[place] [facility] [place] - See progress notes and H&P for detailed history.? Wound follow up for coccyx.? Patient agreeable to assessment and photo documentation.? 10/01/25 Coccyx 10/05/25 Coccyx 10/08/25 Etiology: ??Stage 4 Pressure Injury Present on Admission Measurements: 3cm x 2cm x 1cm Wound Bed: marbled with red pink moist tissue Drainage / Odor: small serosanguineous, no odor noted Edges: ? macerated Devi wound: ?Scar tissue noted, MASD and Maceration No Induration, Fluctuance or Warmth noted Pain: pain reported at times Goals of Treatment: ? Off Load Pressure and Durafiber ag bilaeral groin noted with moist pink skin with thin white film - likely fungal rash, patient reporting discomfort to this area. - message to provider for antifungal powder Penis with linear superficial opening - recommend triad paste Recommendations: 1. Turn and Reposition every 2 hours and as needed for patient comfort.? Use pillows or wedges to support off loading positions. 2. Off Load all bony prominences with use of pillows and heel boots if needed.? Apply Preventative foams where needed. ? 3. Monitor for incontinence and moisture control, use barrier creams when needed for prevention and treatment. 4. Provide adequate and supplemental nutrition.? 5. Order low air loss mattress. 6. When applicable maintain blood glucose levels per Providers order. Coccyx - Off Load Pressure with Q2 hr turns and use of pillows - Cleanse with Ns moist gauze, pat dry. ?Apply thin layer of Triad to devi wound. Lightly pack wound bed with Durafiber AG Cover with foam dressing to aid in off loading and protection from friction. Change Daily and PRN Groin: gentle routine hygiene and incontinence care with pH balanced cleanser and bath wipes. antifungal medication per provider orders: apply a light dusting to prevent caking. apply triad paste BID and PRN. use disposable pads underneath patient when in chair or bed. use proactive toileting to promote continence. Penis: triad paste daily and PRN with incontinent episodes. Re-consult wound care Nurse for wound deterioration or wound changes.
[2025-10-08 15:03] VITALS: BP 101/61; PULSE 63; RESP 16; TEMP 36.3; O2SAT 96
--- NOTE | 2025-10-08 15:41 | MHC.CM.PN ---
per rounds pt will ready tian dc in 1 to 2 days pt s dc plan remains [facility]
[2025-10-08 16:45] LABS: Glucose, Whole Blood 243 mg/dL (60-115)
[2025-10-08 20:00] VITALS: BP 105/52; PULSE 56; RESP 16; TEMP 36.2; O2SAT 92
[2025-10-08 21:05] LABS: Glucose, Whole Blood 257 mg/dL (60-115)
[2025-10-09] VITALS (7 sets, daily range): BP systolic 94–118; BP diastolic 50–71; PULSE 53–59; RESP 12–18; TEMP 36.1–36.7; O2SAT 94–100
[2025-10-09 06:41] LABS: Hematocrit 32.1 % (42.0-52.0); Hemoglobin 9.9 g/dl (14.0-18.0); Mean Corpuscular HGB Conc 30.8 g/dl (31.0-36.0); Mean Corpuscular Hemoglobin 26.8 pg (27.0-33.0); Mean Corpuscular Volume 87.0 fL (80.0-98.0); NRBC Abs Auto 0.000 X10*3/uL (0.0-0.012); NRBC Pct Auto 0.0 /100WBC (0.0-0.2); Red Blood Count 3.69 X10*6/uL (4.60-5.80); White Blood Count 5.6 X10*3/uL (4.8-10.8)
[2025-10-09 06:49] LABS: Platelet Count 87 X10*3/uL (160-400)
[2025-10-09 06:51] LABS: Anion Gap 11 (12-20); Blood Urea Nitrogen 31 mg/dL (9-16); Calcium 7.1 mg/dL (8.4-10.2); Carbon Dioxide 20 mmol/L (22-29); Chloride 112 mmol/L (96-108); Creatinine Clr Calc Pharmacy 64.1; Estimated Glomerular Filt Rate > 60; Potassium 3.9 mmol/L (3.3-5.1); Sodium 139 mmol/L (135-145)
[2025-10-09 07:34] LABS: Glucose, Whole Blood 253 mg/dL (60-115)
[2025-10-09] MEDS: FLUoxetine HCl Oral Solution 20 MG/5 ML SOLUTION 10 MG PO (07:46)
[2025-10-09] MEDS: Insulin Glargine,Hum.rec.anlog 100 UNIT/ML 10 ML VIAL 10 UNIT SUBCUT (07:47)
[2025-10-09 11:46] LABS: Glucose, Whole Blood 193 mg/dL (60-115)
--- NOTE | 2025-10-09 14:44 | HO.PM.IMPN ---
Subjective Subjective Date of Service: 10/09/25 Interval History: Reports he feels ?well - unable to elaborate Represents a poor historian Still suffering with encephalopathy Review of Systems Review of Systems: Yes Unobtainable due to mental condition Physical Exam Exam: Exam: General: A&O x person only, not oriented to time place and situation, appears comfortable, no pain Cardiac: S1, S2 auscultated with no S3/4, no MRG. Well perfused. Respiratory: Reduced breath sounds bilaterally at the bases, with crackles; upper expiratory wheezing auscultated GI/ : No abdominal pain on palpation, no masses or distentions. MSK: Left BKA, right AKA, limited mobility Neurological: Normal neurological examination on overview, without obvious CN II-XII abnormalities. Vital Signs: Vital Signs: Last Vital Signs Temp 97.0 F 10/09/25 12:29 Pulse 55 10/09/25 12:29 Resp 18 10/09/25 12:29 BP 118/56 L 10/09/25 12:29 Pulse Ox 96 10/09/25 12:29 O2 Del Method Room Air 10/09/25 12:29 O2 Flow Rate 2 10/03/25 03:23 BMI result Body Mass Index 24.7 Objective Data Active Medications Acetaminophen (Acetaminophen 325 Mg Tablet) 975 mg PO Q6H PRN PRN Reason: Pain, Mild 1-3,fever,headache Last Admin: 10/08/25 11:43 Dose: 975 mg Documented By: KAVIN Acetaminophen (Acetaminophen Supp 650 Mg Supp.Rect) 650 mg AR Q6H PRN PRN Reason: discomfort/temp >101 Last Admin: 10/07/25 07:42 Dose: 650 mg Documented By: REGINALDO Ascorbic Acid (Ascorbic Acid 500 Mg Tablet) 500 mg PO DAILY [facility] Last Admin: 10/09/25 07:46 Dose: 500 mg Documented By: GRZEGORZ Aspirin (Aspirin 81 Mg Tab.Chew) 81 mg PO DAILY [facility] Last Admin: 10/09/25 07:45 Dose: 81 mg Documented By: GRZEGORZ Atorvastatin Calcium (Atorvastatin Calcium 20 Mg Tablet) 20 mg PO BEDTIME [facility] Last Admin: 10/08/25 20:15 Dose: 20 mg Documented By: SEEMARISM Baclofen (Baclofen 10 Mg Tablet) 5 mg PO TID [facility] Last Admin: 10/09/25 14:37 Dose: 5 mg Documented By: GRZEGORZ Bisacodyl (Bisacodyl 10 Mg Supp.Rect) 10 mg AR DAILY PRN PRN Reason: Constipation Calcium Carbonate (Calcium Carbonate 750 Mg Tab.Chew) 750 mg PO Q4H PRN PRN Reason: Heartburn Dextrose (Dextrose 50 % 25 Gm/50 Ml Syringe) 25 gm IVPUSH Q15M PRN; Protocol PRN Reason: per Hypoglycemia Standing Ord. Docusate Sodium (Docusate Sodium 100 Mg/10 Ml Liquid) 100 mg PO BID [facility] Last Admin: 10/09/25 07:46 Dose: 100 mg Documented By: GRZEGORZ Fluoxetine HCl (Fluoxetine Hcl Oral Solution 20 Mg/5 Ml Solution) 10 mg PO DAILY [facility] Last Admin: 10/09/25 07:46 Dose: 10 mg Documented By: GRZEGORZ Gabapentin (Gabapentin 400 Mg Capsule) 400 mg PO TID [facility] Last Admin: 10/09/25 14:38 Dose: 400 mg Documented By: GRZEGORZ Glipizide (Glipizide 5 Mg Tablet) 5 mg PO DAILY [facility] Last Admin: 10/09/25 07:46 Dose: 5 mg Documented By: GRZEGORZ Glucose (Glucose Gel 15 Gm Gel..Gram.) 15 gm PO Q15M PRN; Protocol PRN Reason: per Hypoglycemia Standing Ord. Heparin Sodium (Porcine) (Heparin Sodium,Porcine 5,000 Unit/Ml Vial) 5,000 unit SUBCUT Q12H [facility] Last Admin: 10/09/25 14:41 Dose: 5,000 unit Documented By: GRZEGORZ Dextrose (D5w) 1,000 mls @ 150 mls/hr IVCONT .Q6H40M [facility] On Hold: 10/09/25 07:36 Last Infusion: 10/09/25 08:51 Dose: Infused Documented By: GRZEGORZ Vancomycin HCl 1,500 mg/ (Sodium Chloride) 500 mls @ 333.333 mls/hr IV Q24H [facility] Last Infusion: 10/09/25 13:03 Dose: Infused Documented By: GRZEGORZ Insulin Glargine (Insulin Glargine,Hum.Rec.Anlog 100 Unit/Ml 10 Ml Vial) 10 unit SUBCUT DAILY [facility] Last Admin: 10/09/25 07:47 Dose: 10 unit Documented By: GRZEGORZ Insulin Human Lispro (Insulin Lispro 100 Unit/Ml 3 Ml Vial) 0 unit SUBCUT QIDACHS [facility]; Protocol Last Admin: 10/09/25 11:44 Dose: 2 unit Documented By: GRZEGORZ Lactulose (Lactulose 20 Gm/30 Ml Solution) 20 gm PO DAILY PRN PRN Reason: Constipation Loperamide HCl (Loperamide Hcl 2 Mg Capsule) 2 mg PO Q4H PRN PRN Reason: Diarrhea Magnesium Hydroxide (Milk Of Magnesia 30 Ml Oral.Susp) 30 ml PO DAILY PRN PRN Reason: Constipation Magnesium Oxide (Magnesium Oxide 400 Mg Tablet) 400 mg PO DAILY [facility] Last Admin: 10/09/25 07:45 Dose: 400 mg Documented By: GRZEGORZ Melatonin (Melatonin 3 Mg Tablet) 6 mg PO BEDTIME PRN PRN Reason: Insomnia Meropenem (Meropenem 1 Gm Vial) 1 gm IVPUSH Q8H [facility] Last Admin: 10/09/25 13:01 Dose: 1 gm Documented By: GRZEGORZ Morphine Sulfate (Morphine Sulfate 4 Mg/Ml Cartridge) 2 mg IVPUSH Q4H PRN; Protocol PRN Reason: Pain, Severe (Pain Scale 7-10) Multivitamins/Vitamin C (Multivitamin Tablet) 1 tab PO DAILY [facility] Last Admin: 10/09/25 07:45 Dose: 1 tab Documented By: GRZEGORZ Naloxone HCl (Naloxone Hcl 0.4 Mg/Ml Vial) 0.4 mg IM Q3M PRN PRN Reason: Opioid Overdose Ondansetron HCl (Ondansetron Odt 4 Mg Tab.Rapdis) 4 mg TRANSLINGU Q8H PRN PRN Reason: Nausea and Vomiting Pharmacy Consult (Consult Rx Vancomycin Dosing) 1 each MISCELLANE DAILY PRN PRN Reason: Consult order Polyethylene Glycol (Polyethylene Glycol 3350 17 Gm Powd.Pack) 17 gm PO BID [facility] Last Admin: 10/09/25 07:46 Dose: 17 gm Documented By: GRZEGORZ Risperidone (Risperidone 0.25 Mg Tablet) 0.25 mg PO BEDTIME [facility] Last Admin: 10/08/25 20:15 Dose: 0.25 mg Documented By: SEEMARISAni Senna (Sennosides 8.6 Mg Tablet) 8.6 mg PO BID [facility] Last Admin: 10/09/25 07:46 Dose: 8.6 mg Documented By: GRZEGORZ Sodium Biphosphate/Sodium Phosphate (Sodium Phosphate,Levy-Dibasic 133 Ml Enema) 118 ml AR DAILY PRN PRN Reason: Constipation Sodium Chloride (0.9 % Sodium Chloride Flush 3 Ml Syringe) 3 ml IVFLUSH QSHIFT [facility] Last Admin: 10/09/25 07:27 Dose: Not Given Documented By: GRZEGORZ Non-Admin Reason: IV Running Labs 10/09/25 05:59 10/09/25 05:59 Labs: Laboratory Results - last 24 hr 10/08/25 10/08/25 10/09/25 16:22 21:00 05:59 MCV 87.0 MCH 26.8 L MCHC 30.8 L RDW 16.3 H Plt Count 87 L D MPV 12.2 Absolute Nucleated RBC 0.000 Nucleated RBC % (auto) 0.0 Anion Gap 11 L Estim Creat Clear Calc 64.1 Estimated GFR > 60 POC Glucose 243 H 257 H Random Glucose 255 H Calcium 7.1 L D Random Vancomycin 10/09/25 10/09/25 10/09/25 07:24 09:39 11:38 MCV MCH MCHC RDW Plt Count MPV Absolute Nucleated RBC Nucleated RBC % (auto) Anion Gap Estim Creat Clear Calc Estimated GFR POC Glucose 253 H 193 H Random Glucose Calcium Random Vancomycin 15.9 Microbiology Microbiology Results: Microbiology 10/07/25 09:10 Blood Culture - Preliminary Blood - Venous No growth after 48 hours. 10/07/25 09:10 Blood Culture - Preliminary Blood - Venous No growth after 48 hours. Assessment and Plan (1) Acute osteomyelitis of sacrum: Status: Acute (2) Avascular necrosis of bone of right hip: Status: Acute (3) Acute metabolic encephalopathy: Status: Acute (4) Metabolic encephalopathy: Status: Acute (5) Stercoral colitis: Status: Acute (6) Acute hypernatremia: Status: Acute (7) S/P AKA (above knee amputation): Status: Acute (8) Hx of left BKA: Status: Acute (9) FTT (failure to thrive) in adult: Status: Acute (10) Sacral ulcer: Status: Acute (11) Dementia: Status: Acute (12) CVA (cerebral vascular accident): Status: Acute Plan 75-year-old male, with a history of dementia, prior CVA, HLD, HTN, T2 DM with diabetic neuropathy, personality disorder, left BKA, right AKA, failure to thrive, presenting from intermediate facility with decreased responsiveness, admitted with acute osteomyelitis and dehydration. Acute osteomyelitis Stage IV sacral ulcer Initially treated with Vanco and Zosyn, then changed to Ceftriaxone to cover E. coli UTI. Blood cultures grew contaminated staph. Repeat cultures completed Bone Biopsy considered but unlikely to change course. ID recommend Meropenem at or, last fever was 10/07, repeat blood culture negative at 24, if negative at 48, stop Vanco and transition to Meropenem alone for discharge PLAN - continue vancomycin (UNLESS cultures change in 24 hours) - continue meropenem for now - IV outpatient Ertapenem for 6 weeks - infectious diseases consult: Recommendations appreciated - monitor CBC and ESR, CRP Acute toxic/metabolic encephalopathy In the setting of osteomyelitis Prioritize patient re-orientation Medications as needed Acute hypernatremia Dehydration Failure to thrive Hypernatremia currently resolved with D5W Renal recommendations greatly appreciated Will require nutrition evaluation ?Acute cholecystitis on CT, ruled out on US nontender on exam LFTS normal general surgery saw, clinically doesn't appear to have cholecysitis, and US showed contracted galbladder and cholelithiasis. No indication Avascular necrosis on CT ?chronic no pain with palpation of the hip Proctitis on CT ?stercoral colitis/constipation, Abx as aboe continue bowel regimen DM - SSI - hold glipizide - diabetic diet HLD - continue home meds HTN - BP soft, hold home meds depression - continue home meds [employer] - VTE: Heparin 5000 t.i.d. SQ - CODE STATUS: Full code - DIET: Diabetic Total time managing care of this patient today: 45 minutes. Quality Stroke Does the patient have a stroke diagnosis?: No VTE Prior VTE?: No VTE Risk Level:: Medical - moderate - high VTE Device Contraindication: Treatment Not Indicated VTE Drug Contraindication: N/A - Med Ordered
[2025-10-09 17:09] LABS: Glucose, Whole Blood 139 mg/dL (60-115)
--- NOTE | 2025-10-09 17:28 | PC.NURSE ---
BP was 97/50, HR 55 at @1614, pt otherwise asymptomatic. MD Lawrence notified. No new orders at this time
[2025-10-09 21:05] LABS: Glucose, Whole Blood 144 mg/dL (60-115)
[2025-10-09] MEDS: 0.9 % Sodium Chloride Flush 3 ML SYRINGE IVFLUSH (21:41)
[2025-10-10 04:00] VITALS: BP 115/63; PULSE 60; RESP 18; TEMP 36; O2SAT 94
[2025-10-10 07:06] LABS: Anion Gap 9 (12-20); Blood Urea Nitrogen 37 mg/dL (9-16); Calcium 7.6 mg/dL (8.4-10.2); Carbon Dioxide 22 mmol/L (22-29); Chloride 113 mmol/L (96-108); Creatinine Clr Calc Pharmacy 59.1; Estimated Glomerular Filt Rate > 60; Potassium 3.5 mmol/L (3.3-5.1); Sodium 140 mmol/L (135-145)
[2025-10-10 07:29] VITALS: BP 106/52; PULSE 76; RESP 16; TEMP 36.2; O2SAT 96
[2025-10-10 07:43] LABS: Glucose, Whole Blood 187 mg/dL (60-115)
[2025-10-10] MEDS: Insulin Glargine,Hum.rec.anlog 100 UNIT/ML 10 ML VIAL 10 UNIT SUBCUT (08:02)
[2025-10-10] MEDS: 0.9 % Sodium Chloride Flush 3 ML SYRINGE IVFLUSH (08:03)
[2025-10-10] MEDS: FLUoxetine HCl Oral Solution 20 MG/5 ML SOLUTION 10 MG PO (08:03)
[2025-10-10 08:16] LABS: Hematocrit 29.6 % (42.0-52.0); Hemoglobin 9.7 g/dl (14.0-18.0); Mean Corpuscular HGB Conc 32.8 g/dl (31.0-36.0); Mean Corpuscular Hemoglobin 27.7 pg (27.0-33.0); Mean Corpuscular Volume 84.6 fL (80.0-98.0); NRBC Abs Auto 0.000 X10*3/uL (0.0-0.012); NRBC Pct Auto 0.0 /100WBC (0.0-0.2); PLT CLUMP 1; Red Blood Count 3.50 X10*6/uL (4.60-5.80)
[2025-10-10 09:05] LABS: Platelet Count 68 X10*3/uL (160-400); White Blood Count 4.7 X10*3/uL (4.8-10.8)
[2025-10-10 11:37] VITALS: BP 115/57; PULSE 53; RESP 16; TEMP 36.1; O2SAT 97
[2025-10-10 11:43] LABS: Glucose, Whole Blood 197 mg/dL (60-115)
--- NOTE | 2025-10-10 12:57 | MHC.CLN ---
F/U DIET RX: 2000DM PUREED. RECEIVING ENSURE MAX BID TO PROMOTE WOUND HEALING. SUPP PROVIDES 300KCALS, 60G PROTEIN. SKIN WITH STAGE IV PRESSURE INJURY TO COCCYX. PO VARIABLE X 2 DAYS, 50-100%. FOLLOW FOR PO INTAKE AND WOUND HEALING.
--- NOTE | 2025-10-10 13:56 | MHC.CM.PN ---
DP: PT HAS BEEN MEDICALLY CLEARED FOR DC BACK TO LTC AT [facility]. BLS TRANSPORT BOOKED FOR 4 PM [facility]IA [facility]. RN/PROVIDER UPDATED. CENTER AWARE OF TRANSPORT TIME. FINAL IMM ISSUED.
--- NOTE | 2025-10-10 15:11 | HO.PICC ---
PICC Line Insertion NPICC INSERTION Diagnosis: OSTEOMYELITIS Indication: DETENTION ANTIBX Pertinent Labs: REVIEWED Technique: Following informed consent including risks, benefits and alternatives and using sterile technique including cap and mask, sterile gown, glove and drape, the Right arm was prepped and draped in the usual sterile fashion of full barrier technique with CHG. Following completion of [place] Protocol the skin and soft tissues were anesthetized with 1% Lidocaine plain. Using ultrasound guidance, Right Brachial vein access was obtained. Over an 0.018 wire through peel-away sheath, a 4Fr Powerpicc Solo PICC line was positioned. Catheter length is 44Cm internal length, 0CM external length, for a total trimmed length of 44CM. The procedure was performed in 7. Tip verification was performed by Ara Mobley with Sherlock 3CG. Tip located in SVC. Ultrasound was used to document vein patency and for needle entry. A formal ultrasound picture and cardiac rhythm strip was recorded. Vascular Nozzle Tender has released the line for use and it is currently dressed with a StatLock, Tegaderm, and CHG disc. Verification has been performed for blood return and line patency. Arm Circumference: 27.5CM Equipment: Websense PowerPicc SOLO Catheter with Sherlock 3cG Tip Catheter Type: 4Fr Powerpicc Solo PICC line Lot #: [id number]
[2025-10-10 15:26] VITALS: BP 111/56; PULSE 55; RESP 18; TEMP 36.6; O2SAT 96
--- NOTE | 2025-10-10 15:33 | P.DS_ITS ---
DS: Providers Provider Date of Service: 10/10/25 Date of admission: 09/30/25 00:41 Date of discharge: 10/10/25 Primary care physician: DELMY DUTTON Consults: 09/30/25 00:54 Consult to Nephrology Routine Consulting Provider: [facility] Reason for consultation: hypernatremia 09/30/25 01:58 Consult to General Surgery Routine Consulting Provider: [facility] Reason for consultation: osteomyelitis, acute cholecystitis and avascular necrosis on CT Consult to Infectious Diseases Routine Consulting Provider: [facility] Reason for consultation: osteomyelitis 09/30/25 02:00 Consult to Gastroenterology Routine Consulting Provider: Fredi Berry Reason for consultation: proctitis on CT 09/30/25 02:07 Consult to Wound Care Routine Consulting Provider: [facility] Reason for consultation: stage 4 sacral ulcer 10/06/25 00:28 Consult to Wound Care Routine Consulting Provider: [facility] Reason for consultation: stage 4 sacral wound, redness to devi area 10/06/25 09:36 Consult to General Surgery Routine Consulting Provider: [facility] Reason for consultation: Sacral ulcer ? need for biopsy Has provider been notified: No 10/07/25 00:50 Consult to Wound Care Routine Consulting Provider: [facility] Reason for consultation: stage 4 sacral wound DS: Diagnosis Discharge Diagnosis (1) Acute osteomyelitis of sacrum: Status: Acute (2) Avascular necrosis of bone of right hip: Status: Acute (3) Acute metabolic encephalopathy: Status: Acute (4) Metabolic encephalopathy: Status: Acute (5) Stercoral colitis: Status: Acute (6) Acute hypernatremia: Status: Acute (7) S/P AKA (above knee amputation): Status: Acute (8) Hx of left BKA: Status: Acute (9) FTT (failure to thrive) in adult: Status: Acute (10) Sacral ulcer: Status: Acute (11) Dementia: Status: Acute (12) CVA (cerebral vascular accident): Status: Acute DS: Summary Hospital Course Hospital Course: 75-year-old male, with a history of dementia, prior CVA, HLD, HTN, T2 DM with diabetic neuropathy, personality disorder, left BKA, right AKA, failure to thrive, presenting from [facility] facility with decreased [facility], admitted with acute osteomyelitis and dehydration. PRESENTATION The patient presented to the ED via EMS from his nursing facility for decreased responsiveness. Patient is unable to provide a reliable HPI, history from ED provider as follows. On arrival to the ED patient was found to be febrile at 102.2, with SpO2 of 92% on room air. No associated hypotension or tachycardia. The patient arrives minimally responsive to verbal stimuli, able to state his name. the pt is now minimally responsive to name, attempts to open eyes but goes back to sleep. pt's nurse notes that he did wake up and drink something and urinated previously. workup in the ED significant for stage 4 sacral ulcer, also seen on CT with a sinus tract extending into the posterior aspect the sacrum with osteomyelitis as well as possible cholecystitis however clinically does not have signs of acute cholecystitis or elevated LFTs. signs of dehydration also seen on exam with dry mucous membranes and BMP with hypernatremic hyperchloremia. PROBLEM LIST Acute sacral osteomyelitis Stage IV sacral ulcer Initially treated with Vanco and Zosyn, then changed to Ceftriaxone to cover E. coli UTI. Blood cultures grew contaminated staph. Repeat cultures completed Bone Biopsy considered but unlikely to change course. last fever was 10/07, repeat blood culture negative at 24, if negative at 48, stop Vanco and transition to Meropenem alone for discharge ID was consulted - recommendations to transitioned to ertapenem in outpatient setting for 6 weeks IV (1 g IV Q 8 hourly) PLAN - IV outpatient Ertapenem for 6 weeks, 1 g IV Q 8 hourly - monitor CBC and ESR, CRP - follow up outpatient Infectious diseases Acute toxic/metabolic encephalopathy In the setting of osteomyelitis Prioritize patient re-orientation Medications as needed Back to clinical baseline Acute hypernatremia Dehydration Failure to thrive Hypernatremia currently resolved with D5W Renal recommendations greatly appreciated Resolved. Urinary retention Patient suffered with persistent urinary retention, requiring multiple straight catheterizations. He was placed on Yanes catheter Attempt voiding trial at SNF Consider starting tamsulosin Status at Discharge Functional status at discharge: bed bound Overall status at discharge: patient is back to baseline Time Attestation Total time managing care of this patient today: 45 mintues. Discharge Coordination Time (in mins): 35 Quality: Safe Use of Opioids Does Pt have an Active Cancer Diagnosis on the Problem List?: No Quality: Stroke Does the patient have a stroke diagnosis?: No Physical Exam Exam: Exam: General: A&O x person only, not oriented to time place and situation, appears comfortable, no pain Cardiac: S1, S2 auscultated with no S3/4, no MRG. Well perfused. Respiratory: Reduced breath sounds bilaterally at the bases, with crackles; upper expiratory wheezing auscultated GI/ : No abdominal pain on palpation, no masses or distentions. MSK: Left BKA, right AKA, limited mobility Neurological: Normal neurological examination on overview, without obvious CN II-XII abnormalities. Vital Signs: Vital Signs: Last Vital Signs Temp 97.8 F 10/10/25 15:26 Pulse 55 10/10/25 15:26 Resp 18 10/10/25 15:26 BP 111/56 L 10/10/25 15: Pulse Ox 96 10/10/25 15: O2 Del Method Room Air 10/10/25 15: O2 Flow Rate 2 10/03/25 03:23 BMI result Body Mass Index 24.7 DS: Data Data Completed and Pending Labs on day of discharge: Laboratory Results - last 24 hr 10/09/25 10/09/25 10/10/25 17:05 20:53 06:01 WBC 4.7 L RBC 3.50 L Hgb 9.7 L Hct 29.6 L MCV 84.6 MCH 27.7 MCHC 32.8 RDW 16.2 H Plt Count 68 L MPV Not Reportable Absolute Nucleated RBC 0.000 Nucleated RBC % (auto) 0.0 Sodium 140 Potassium 3.5 Chloride 113 H Carbon Dioxide 22 Anion Gap 9 L BUN 37 H Creatinine 0.89 Estim Creat Clear Calc 59.1 Estimated GFR > 60 POC Glucose 139 H 144 H Random Glucose 183 H Calcium 7.6 L D 10/10/25 10/10/25 07:35 11:39 WBC RBC Hgb Hct MCV MCH MCHC RDW Plt Count MPV Absolute Nucleated RBC Nucleated RBC % (auto) Sodium Potassium Chloride Carbon Dioxide Anion Gap BUN Creatinine Estim Creat Clear Calc Estimated GFR POC Glucose 187 H 197 H Random Glucose Calcium Preliminary micro results at discharge 10/07/25 09:10 Blood Culture - Preliminary Blood - Venous No growth after 48 hours. 10/07/25 09:10 Blood Culture - Preliminary Blood - Venous No growth after 48 hours. Discharge Plan Discharge Anticipated Discharge Date/Time: 10/10/25 15:38 Patient Disposition: Xfer SNF Discharge Diagnosis: Acute sacral osteomyelitis Referrals: [facility] [Outside] - 1 Week Referral Note: TRANSFER FOR RESUMPTION OF [facility]IOR [facility] DELMY DUTTON [Primary Care Provider, Internal Medicine] - 1 Week Discharge Medications: No Action acetaminophen 325 mg Tablet 650 mg PO BEDTIME acetaminophen 650 mg Suppository 650 mg OR Q6H PRN (Reason: discomfort/temp >101) Rx Instructions: not to exceed 3 gm/24 hours from all sources acetaminophen 325 mg Tablet 650 mg PO Q8H PRN (Reason: arthritis pain) ascorbic acid (vitamin C) 500 mg Tablet 500 mg PO DAILY aspirin 81 mg Tablet,Chewable 81 mg PO DAILY atorvastatin 20 mg Tablet 20 mg PO BEDTIME baclofen 10 mg Tablet 5 mg PO TID bisacodyl 10 mg Suppository 10 mg OR DAILY PRN (Reason: Constipation) docusate sodium 100 mg Capsule 100 mg PO BID epinephrine 0.3 mg/0.3 mL Auto-Injector 0.3 mg IM Q5M MDD 2 PRN (Reason: Anaphylaxis) Rx Instructions: for 2 doses Fleet Enema 19-7 gram/118 mL Enema 118 ml OR DAILY PRN (Reason: Constipation) fluoxetine 10 mg Capsule 10 mg PO DAILY gabapentin 400 mg Capsule 400 mg PO TID glipizide 5 mg Tablet 5 mg PO DAILY glucagon HCl [Glucagon (HCl) Emergency Kit] 1 mg Recon Soln 1 mg SUBCUT Q15M PRN (Reason: bs< 70) Rx Instructions: until target blood sugar attained insulin aspart U-100 100 unit/mL (3 mL) Insulin Pen 1 sliding scale dose SUBCUT USEASDIRECTD Rx Instructions: BS 200-250=2 UNITS BS 251-300=4UNITS BS 301-350=6 UNITS BS 351-400= 8 UNITS BS 401-999 = 8 UNITS BS> 400 CALL PROVIDER lactulose 10 gram/15 mL Solution 20 g PO DAILY PRN (Reason: Constipation) loperamide 2 mg Capsule 2 mg PO Q4H PRN (Reason: Diarrhea) Rx Instructions: administer after each loose stool until symptoms controlled; do not exceed 8 mg per 24 hrs magnesium oxide 400 mg magnesium Tablet 400 mg PO DAILY magnesium hydroxide [Milk of Magnesia] 400 mg/5 mL Suspension 30 ml PO DAILY PRN (Reason: Constipation) Rx Instructions: IF NO BM IN 3 DAYS polyethylene glycol 3350 [Miralax] 17 gram/dose Powder 17 g PO BID multivitamin Tablet 1 tab PO DAILY naloxone 0.4 mg/mL Syringe 0.4 mg IM Q3M PRN (Reason: Opioid Overdose) Rx Instructions: NTExceed 10 mg total dose/episode naloxone 4 mg/actuation [place],Non-Aerosol 4 mg INTRANASAL Q3M PRN (Reason: Opioid Overdose) Rx Instructions: spray 1 dose into ONE nostril; alternate nostrils w each dose until help arrives ondansetron 4 mg Tablet,Disintegrating 4 mg PO Q8H PRN (Reason: Nausea And Vomiting) risperidone 0.25 mg Tablet 0.25 mg PO BEDTIME sennosides [senna] 8.6 mg Tablet 8.6 mg PO BID Discharge Orders: Discharge Order (Routine); Ordered 10/10/25 Ordered By: Magaly Lawrence Diet: Advance to usual diet Activity on Discharge: As tolerated Stand Alone Forms: Patient Portal Discharge page Print Language: Unable To Collect Care Plan Goals: As above Health Concerns: As above Plan of Treatment: Follow up with outpatient Infectious diseases regarding antibiotic regimen Complete ertapenem 1 g Q 8 hourly IV PICC line (single lumen PASV) placed successfully - NS flushes Voiding trial for yanes placement Assessment: Deemed hemodynamically stable for discharge
[2025-10-10 16:06] LABS: Glucose, Whole Blood 139 mg/dL (60-115)
== END 2025-10-10 17:26 | disposition skilled nursing facility (03) | DRG 637 ==
LOC: HO.ED 09-30 00:39 → HO.EDOVER 09-30 00:44 → HO.S3 09-30 13:21 → HO.EDOVER 09-30 15:12 → HO.IMC 10-01 12:40 → HO.S3 10-04 23:39
PROVIDERS: Emergency Medicine; Internal Medicine; Physician Assistant; Admitting Provider Physician Assistant; Emergency Provider Emergency Medicine; PCP Emergency Medicine; Visit Provider Hospitalist
DX: E11.69 Type 2 diabetes mellitus with other specified complication (principal); G93.41 Metabolic encephalopathy; L89.154 Pressure ulcer of sacral region, stage 4; E87.0 Hyperosmolality and hypernatremia; M46.28 Osteomyelitis of vertebra, sacral and sacrococcygeal region; M87.9 Osteonecrosis, unspecified; N39.0 Urinary tract infection, site not specified; M24.542 Contracture, left hand; M24.541 Contracture, right hand; F03.90 Unspecified dementia, unspecified severity, without behavioral disturbance, psychotic disturbance, mood disturbance, and anxiety; E11.40 Type 2 diabetes mellitus with diabetic neuropathy, unspecified; E78.5 Hyperlipidemia, unspecified; I10 Essential (primary) hypertension; Z89.512 Acquired absence of left leg below knee; E86.0 Dehydration; E11.51 Type 2 diabetes mellitus with diabetic peripheral angiopathy without gangrene; I69.398 Other sequelae of cerebral infarction; K62.89 Other specified diseases of anus and rectum; K59.00 Constipation, unspecified; I95.9 Hypotension, unspecified; Z89.611 Acquired absence of right leg above knee; B96.20 Unspecified Escherichia coli [E. coli] as the cause of diseases classified elsewhere; K80.20 Calculus of gallbladder without cholecystitis without obstruction; E11.65 Type 2 diabetes mellitus with hyperglycemia; Z20.822 Contact with and (suspected) exposure to COVID-19; Z79.4 Long term (current) use of insulin; Z79.82 Long term (current) use of aspirin; Z79.84 Long term (current) use of oral hypoglycemic drugs; Z79.899 Other long term (current) drug therapy
CPT/HCPCS: 36415; 36573; 70450; 71045; 74177; 76705; 80048; 80051; 80053; 80202; 81001; 81003; 82565; 82803; 82947; 83605; 83735; 84443; 84484; 85025; 85027; 85652; 86140; 87040; 87086; 87088; 87147; 87186; 87205; 87637; 93005; 99285; C1751; C1894; J0131; J0696; J1271; J1335; J1644; J1885; J2185; J2543; J3374; J7120; P9047; Q9967

== ENCOUNTER → 2025-09-29 19:24 | Outpatient (BNV) | payer MEDICARE, MEDICAID, SELFPAY | PROVIDERS: Admitting Provider Physician Assistant; Emergency Provider Emergency Medicine; Visit Provider Internal Medicine Cardiovascular Disease | DX: R94.31 Abnormal electrocardiogram [ECG] [EKG] (principal); R41.82 Altered mental status, unspecified | CPT/HCPCS: 93010 ==

== ENCOUNTER → 2025-09-29 19:27 | Outpatient (BNV) | payer MEDICARE, MEDICAID, SELFPAY | PROVIDERS: Emergency Provider Emergency Medicine; Visit Provider Radiology Diagnostic Radiology | DX: K80.20 Calculus of gallbladder without cholecystitis without obstruction (principal); L89.159 Pressure ulcer of sacral region, unspecified stage; M46.28 Osteomyelitis of vertebra, sacral and sacrococcygeal region | CPT/HCPCS: 70450; 71045; 74177 ==

== ENCOUNTER 2025-09-30 00:41 | Outpatient (BNV) | payer MEDICARE, MEDICAID, SELFPAY | END 2025-10-01 02:51 | PROVIDERS: Admitting Provider Physician Assistant; Emergency Provider Emergency Medicine; Visit Provider Internal Medicine Cardiovascular Disease | DX: I49.1 Atrial premature depolarization (principal); R00.1 Bradycardia, unspecified | CPT/HCPCS: 93010 ==

== ENCOUNTER → 2025-09-30 00:41 | Outpatient (BNV) | payer MEDICARE, MEDICAID, SELFPAY | PROVIDERS: Admitting Provider Physician Assistant; Emergency Provider Emergency Medicine; Visit Provider Internal Medicine Hypertension Specialist | DX: E87.0 Hyperosmolality and hypernatremia (principal) | CPT/HCPCS: 99232; 99499 ==

== ENCOUNTER → 2025-09-30 00:41 | Outpatient (BNV) | payer MEDICARE, MEDICAID, SELFPAY | PROVIDERS: Admitting Provider Physician Assistant; Emergency Provider Emergency Medicine; Visit Provider Surgery | DX: M46.28 Osteomyelitis of vertebra, sacral and sacrococcygeal region (principal); K80.20 Calculus of gallbladder without cholecystitis without obstruction; M87.051 Idiopathic aseptic necrosis of right femur; K52.89 Other specified noninfective gastroenteritis and colitis | CPT/HCPCS: 99222 ==

== ENCOUNTER → 2025-09-30 00:41 | Outpatient (BNV) | payer MEDICARE, MEDICAID, SELFPAY | PROVIDERS: Admitting Provider Physician Assistant; Emergency Provider Emergency Medicine; Visit Provider Internal Medicine | DX: M46.28 Osteomyelitis of vertebra, sacral and sacrococcygeal region (principal); R93.5 Abnormal findings on diagnostic imaging of other abdominal regions, including retroperitoneum; K80.20 Calculus of gallbladder without cholecystitis without obstruction | CPT/HCPCS: 99222 ==

== ENCOUNTER → 2025-09-30 00:41 | Outpatient (BNV) | payer MEDICARE, MEDICAID, SELFPAY | PROVIDERS: Admitting Provider Physician Assistant; Emergency Provider Emergency Medicine; Visit Provider Physician Assistant | DX: M46.28 Osteomyelitis of vertebra, sacral and sacrococcygeal region (principal); G93.41 Metabolic encephalopathy | CPT/HCPCS: 99223; 99232 ==

== ENCOUNTER → 2025-09-30 00:41 | Outpatient (BNV) | payer MEDICARE, MEDICAID, SELFPAY | PROVIDERS: Admitting Provider Physician Assistant; Emergency Provider Emergency Medicine; Visit Provider Internal Medicine Gastroenterology | DX: K52.89 Other specified noninfective gastroenteritis and colitis (principal); R93.5 Abnormal findings on diagnostic imaging of other abdominal regions, including retroperitoneum | CPT/HCPCS: 99222 ==

== ENCOUNTER 2025-10-26 10:20 | Outpatient (AMB) | payer MEDICARE, MEDICAID, SELFPAY ==
[2025-10-26 10:37] VITALS: BP 100/60; PULSE 55; O2SAT 94
--- NOTE | 2025-10-26 10:37 | MHC.OFFVIS ---
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 He was hospitalized from 09/30 to 10/10 and was subsequently discharged on a 6-week course of ertapenem. He has completed between 4 and 5 weeks of the IV antibiotic therapy and has experienced some discomfort and itchiness at times. The patient's past medical history is significant for a left below-knee amputation, a cerebrovascular accident, and dementia. Results [facility] Social History Household Members: Unknown / Unable to assess Housing: Unknown / Unable to assess Patient Tobacco Use Status: Never used Tobacco service: No Review of Systems Narrative Review of Systems - Integumentary: Reports occasional discomfort and itchiness. Physical Exam Exam Exam: Physical Exam - Vitals: Stable. - Lungs: Clear to auscultation. - Cardiovascular: Regular rhythm. - Abdomen: Soft and non-tender. - Integumentary: The sacral ulcer is healing, and the buttock area is clearing. - The pressure ulcer is stage 1. Vital Signs: Last Vital Signs Pulse 55 10/26/25 10:37 BP 100/60 10/26/25 10:37 Pulse Ox 94 10/26/25 10:37 Oxygen Delivery Method Room Air 10/26/25 10:37 Assessment & Plan Assessment & Plan (1) Acute osteomyelitis of sacrum: Comment: high grade temperature yesterday and no rash or diarrhea Code(s): M46.28 - Osteomyelitis of vertebra, sacral and sacrococcygeal region Category: Medical Plan Plan Patient was informed and verbally consented to the use of an ambient scribe for clinic note documentation during this visit. 1. Osteomyelitis Of Sacrum The patient has completed 4-5 weeks of a 6-week course of ertapenem with evidence of a healing sacral wound. Due to concerns about tolerating the medication and maintaining PICC line access, IV antibiotics will be discontinued at this time. The plan includes pulling the PICC line, continuing local wound care, and following up at the wound clinic. If the wound worsens, consideration will be given to restarting IV therapy or initiating oral antibiotics. Discussion Notes I discussed that the patient has completed between 4 and 5 weeks of his 6-week IV ertapenem course for sacral osteomyelitis. I explained that given the good healing of the sacral wound and the concerns regarding medication tolerance and the risk of him dislodging his PICC line, I recommended discontinuing the IV antibiotics. I informed that the PICC line will be pulled, and he will continue with local wound care and follow up in the wound clinic. I also advised that should the wound show signs of worsening, we would re-evaluate and consider restarting IV antibiotics or starting oral antibiotics. Medical Decision Making The patient is a 75-year-old male with a complex medical history including dementia, CVA, and a left BKA, who is being treated for sacral osteomyelitis. He has completed 4-5 weeks of a planned 6-week course of IV ertapenem and shows clinical signs of improvement with a healing sacral wound. The decision to discontinue IV antibiotics is based on the significant clinical improvement and the risks associated with maintaining PICC line access in a patient with dementia, who may be prone to pulling it out. The plan is to manage him empirically with close follow-up in the wound clinic and local care. A contingency plan to restart antibiotic therapy, either IV or oral, is in place should the infection show signs of worsening. Patient Instructions - You will stop receiving the IV antibiotic medication. - The IV line (PICC line) in your arm will be removed. - Continue with local care for the wound on your lower back. - Please follow up with the wound clinic as planned. - Contact us if the wound starts to look worse, as you may need to start antibiotics again. Orders: Orders IR cvc remove any age 1210/26/25 M46.28 - Osteomyelitis of vertebra, sacral and sacrococcygeal region Coding Level of Care Code Est Pt Level 3 (67011) Diagnoses Acute osteomyelitis of sacrum M46.28
== END 2025-10-26 10:50 | disposition home or self-care (01) ==
LOC: HO.HID 10:20
PROVIDERS: PCP Emergency Medicine; Visit Provider Internal Medicine
DX: M46.28 Osteomyelitis of vertebra, sacral and sacrococcygeal region (principal)
CPT/HCPCS: 99213

== ENCOUNTER → 2025-10-26 10:20 | Outpatient (BNVA) | payer MEDICARE, MEDICAID, SELFPAY | PROVIDERS: PCP Emergency Medicine; Visit Provider Internal Medicine | DX: M46.28 Osteomyelitis of vertebra, sacral and sacrococcygeal region (principal) | CPT/HCPCS: 99212 ==